=== PATIENT | female | born 1950 | race Caucasian/White ===

== ENCOUNTER 2018-09-11 15:40 | Observation (INO) | payer MEDICARE ==
[2018-09-11] MEDS ORDERED: Ondansetron PF 4 MG/2 ML Vial IVP PRN (17:14)
[2018-09-11] MEDS ORDERED: hydrALAZINE 20 MG/ML VIAL SLOW IVP PRN (17:14)
[2018-09-11] MEDS ORDERED: Bisacodyl 5 MG TAB PO PRN (17:14)
[2018-09-11] MEDS ORDERED: Nitroglycerin 0.4 MG TAB (25 Tab Bottle) SL PRN (17:14)
[2018-09-11] MEDS ORDERED: Diabetic Tussin 200 MG/10 ML UDCUP PO PRN (17:14)
[2018-09-11] MEDS ORDERED: Senokot S 8.6-50 MG TAB PO PRN ×2 (17:14)
[2018-09-11] MEDS ORDERED: Benzonatate 100 MG CAP PO PRN (17:14)
[2018-09-11] MEDS ORDERED: Calcium Carbonate 500 MG ChewTAB PO PRN (17:14)
[2018-09-11] MEDS ORDERED: cloNIDine 0.1 MG TAB PO PRN (17:14)
[2018-09-11 17:40] LABS: Troponin I Less than 0.010 ng/mL (< 0.028)
[2018-09-11] MEDS ORDERED: Nitroglycerin 2% Ointment 1 INCH/1 GM Packet ONE (17:40)
--- NOTE | 2018-09-11 18:27 | ULT ---
BILATERAL LOWER EXTREMITY VENOUS DOPPLER WITH SPECTRAL ANALYSIS AND COLOR FLOW EVALUATION: 09/11/18 HISTORY: Elevated D-dimer. FINDINGS: Caballero scale, color flow, doppler evaluation, spectral analysis, and color flow evaluation of the bilat eral lower extremity venous structures is performed with 2D imaging. The bilateral lower extremity co mmon femoral, superficial femoral, popliteal, posterior tibial, most proximal greater saphenous and p rofunda femoral veins are imaged. There is normal lumen compressibility, flow and augmentation of the visualized deep venous structures bilateral lower extremities. IMPRESSION: No evidence of a DVT involving the visualized deep venous structures bilateral lower extremities. POS: [facility]
--- NOTE | 2018-09-11 19:15 | RAD ---
PA AND LATERAL VIEWS CHEST: 09/11/18 HISTORY: Chest pain. FINDINGS: The heart size is normal. The lungs are expanded without focal areas of consolidation, pneumothoraces or pleural effusions are again seen in the spine. IMPRESSION: No evidence of acute cardiopulmonary process. POS: [facility]
--- NOTE | 2018-09-11 19:49 | NM ---
VQ SCAN: 09/11/18 HISTORY: Chest pain. elevated D-dimer. TECHNIQUE: A ventilation perfusion scan was performed using 14.2 millicuries Xenon 133 by inhalation for the alex tilation study followed by the intravenous administration of 6.3 millicuries technetium 99m-MAA for t he perfusion scan. FINDINGS: Correlation is made with the chest x-ray of the same date. Mild inhomogeneity is seen on the ventilation perfusion studies without mismatched pleural based wedg e shaped segmental/subsegmental perfusion defects. IMPRESSION: Low probability for pulmonary embolism. POS: [facility]
[2018-09-11 20:24] VITALS: BMI 41.6
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
[2018-09-11] MEDS: Atorvastatin Calcium 10 MG TAB PO SCH (21:31)
[2018-09-11] MEDS: Famotidine 20 MG TAB PO SCH (21:31)
[2018-09-11 21:46] LABS: Troponin I Less than 0.010 ng/mL (< 0.028)
[2018-09-12] MEDS: Nitroglycerin 2% Ointment 1 INCH/1 GM Packet TOP SCH ×2 (01:31→06:33)
[2018-09-12] MEDS: Acetaminophen 325 MG TAB PO PRN (03:39)
[2018-09-12] MEDS ORDERED: Naproxen 500 MG TAB PO SCH (05:30)
[2018-09-12] MEDS ORDERED: diphenhydrAMINE 25 MG CAP PO SCH (05:30)
[2018-09-12 05:59] LABS: Anion Gap 13 mmol/L (10-20); BUN (Urea Nitrogen) 20 mg/dL (9.8-20.1); Calc. Creatinine Clearance 83 mL/min (70-130); Calcium 8.5 mg/dL (7.8-10.44); Carbon Dioxide 20 mmol/L (23-31); Chloride 111 mmol/L (98-107); Estimated GFR-MDRD 46; Glucose 106 mg/dL (80-115); Potassium 4.4 mmol/L (3.5-5.1); Sodium 140 mmol/L (136-145)
[2018-09-12 06:19] LABS: #Basophils 0.1 thou/uL (0.0-0.2); #Eosinphils 0.2 thou/uL (0.0-0.7); #Lymphocytes 1.5 thou/uL (1.20-3.40); #Monocytes 0.7 thou/uL (0.11-0.59); #Neutrophils 3.3 thou/uL (1.40-6.50); %Basophils 1.1 % (0.0-1.0); %Eosinophils 3.5 % (0.0-10.0); %Lymphocytes 25.7 % (21.0-51.0); %Monocytes 11.9 % (0.0-10.0); %Neutrophils 57.8 % (42.0-75.0); Hemoglobin 13.2 g/dL (12.0-16.0); Mean Corpuscular HGB CONC 32.2 g/dL (32.0-36.0); Mean Corpuscular Hemoglobin 32.7 pg (27.0-31.0); Mean Platelet Volume 7.6 fL (7.4-10.4); Platelet Count 113 thou/uL (130-400); Platelet Morphology Comment Appears Decreased; RBC Distribution Width 12.8 % (11.5-14.5); Red Blood Cell (RBC) Count 4.03 mill/uL (4.20-5.40); White Blood Cell (WBC) Count 5.6 thou/uL (4.8-10.8)
[2018-09-12 08:45] LABS: #Basophils 0.1 thou/uL (0.0-0.2); #Eosinphils 0.2 thou/uL (0.0-0.7); #Lymphocytes 1.8 thou/uL (1.20-3.40); #Monocytes 0.8 thou/uL (0.11-0.59); #Neutrophils 3.5 thou/uL (1.40-6.50); %Basophils 0.9 % (0.0-1.0); %Eosinophils 3.3 % (0.0-10.0); %Lymphocytes 28.6 % (21.0-51.0); %Monocytes 12.3 % (0.0-10.0); Hemoglobin 13.5 g/dL (12.0-16.0); Mean Corpuscular HGB CONC 32.8 g/dL (32.0-36.0); Mean Corpuscular Hemoglobin 33.3 pg (27.0-31.0); Mean Platelet Volume 7.4 fL (7.4-10.4); Platelet Count 107 thou/uL (130-400); RBC Distribution Width 12.9 % (11.5-14.5); Red Blood Cell (RBC) Count 4.06 mill/uL (4.20-5.40); White Blood Cell (WBC) Count 6.4 thou/uL (4.8-10.8)
[2018-09-12 08:54] LABS: Anion Gap 9 mmol/L (10-20); BUN (Urea Nitrogen) 20 mg/dL (9.8-20.1); Calc. Creatinine Clearance 85 mL/min (70-130); Calcium 8.4 mg/dL (7.8-10.44); Carbon Dioxide 23 mmol/L (23-31); Chloride 112 mmol/L (98-107); Estimated GFR-MDRD 47; Glucose 94 mg/dL (80-115); Potassium 4.4 mmol/L (3.5-5.1); Sodium 140 mmol/L (136-145)
[2018-09-12] MEDS ORDERED: Aspirin 325 mg Enteric Coated Tablet PO SCH (09:00)
[2018-09-12] MEDS ORDERED: Hydrochlorothiazide 25 MG TAB PO SCH (09:00)
[2018-09-12] MEDS ORDERED: NIFEdipine XL 30 MG TAB PO SCH (09:00)
[2018-09-12] MEDS: Enoxaparin Sodium 40 MG/0.4 ML SYRINGE SC SCH (09:35)
[2018-09-12] MEDS: Aspirin 81 mg Enteric Coated Tablet PO SCH (09:35)
[2018-09-12] MEDS: Famotidine 20 MG TAB PO SCH ×2 (09:35→20:47)
[2018-09-12] MEDS: Escitalopram Oxalate 20 mg Tablet PO SCH (09:35)
[2018-09-12] MEDS ORDERED: Enoxaparin Sodium 80 MG/0.8 ML SYRINGE SC SCH (11:00)
[2018-09-12] MEDS ORDERED: Diltiazem 125 MG in Sodium Chloride 0.9% 100 ML IVPB SCH (11:00)
[2018-09-12] MEDS: Losartan 25 MG TAB PO SCH (12:03)
--- NOTE | 2018-09-12 13:49 | PDOC.PN ---
- Subjective Encounter Start Date: 09/12/18 Encounter Start Time: 13:47 Subjective: pt went into a-fib w RVR this morning and feels "pretty awful' -: no more chest pain - Objective Resuscitation Status - Order Detail: 09/11/18 19:29 Resuscitation Status Routine Resuscitation Status: FULL: Full Resuscitation Discussed with: discussed w pt MAR Reviewed: Yes Vital Signs & Weight: Vital Signs (12 hours) Temp Pulse Resp BP BP Pulse Ox 09/12/18 11:00 97.7 F 53 L 18 143/71 H 96 09/12/18 07:00 97.9 F 53 L 20 133/66 96 09/12/18 03:39 59 L 18 127/69 97 Weight Weight 258 lb 4.8 oz Result Diagrams: 09/12/18 08:25 09/12/18 08:25 Additional Labs: Laboratory Tests 09/11/18 09/11/18 09/11/18 12:43 17:06 20:58 Troponin I 0.014 Less than 0.010 Less than 0.010 Phys Exam - Physical Examination Constitutional: NAD uncomfortable HEENT: PERRLA, moist MMs, sclera anicteric, oral pharynx no lesions Neck: no nodes, no JVD, supple, full ROM Respiratory: no wheezing, no rales, no rhonchi Cardiovascular: no significant murmur, irregular Gastrointestinal: soft, non-tender, no distention, positive bowel sounds Musculoskeletal: no edema, pulses present Neurological: non-focal, normal sensation, moves all 4 limbs Dx/Plan (1) Hypertensive urgency Code(s): I16.0 - HYPERTENSIVE URGENCY Status: Acute Comment: Improved control (2) Chest pain Code(s): R07.9 - CHEST PAIN, UNSPECIFIED Status: Acute Comment: PE ruled out. (3) Atrial fibrillation with RVR Code(s): I48.91 - UNSPECIFIED ATRIAL FIBRILLATION Status: Acute (4) BRENNAN (acute kidney injury) Code(s): N17.9 - ACUTE KIDNEY FAILURE, UNSPECIFIED Status: Acute (5) Tobacco abuse Code(s): Z72.0 - TOBACCO USE Status: Chronic (6) Tobacco abuse counseling Code(s): Z71.6 - TOBACCO ABUSE COUNSELING Status: Chronic (7) HTN (hypertension) Code(s): I10 - ESSENTIAL (PRIMARY) HYPERTENSION Status: Chronic (8) AAA (abdominal aortic aneurysm) Code(s): I71.4 - ABDOMINAL AORTIC ANEURYSM, WITHOUT RUPTURE Status: Chronic Qualifiers: Presence of rupture: without rupture Qualified Code(s): I71.4 - Abdominal aortic aneurysm, without rupture - Plan DVT proph w/SCDs BP better. troponin negative .stress test today -: reverted back to NSR. will give cardiazem drip if re-occurs. pt high risk -: May need cath for further risk stratifications. -: Hold Lisinopril as Cr high. started on procardia. Cont HCTZ.monitor -: hold BB due to sinus bradycardia. * . Review of Systems - Review of Systems Constitutional: weakness, malaise. negative: fever, chills, sweats, other Respiratory: negative: Cough, Dry, Shortness of Breath, Hemoptysis, SOB with Excertion, Pleuritic Pain, Sputum, Wheezing Cardiovascular: negative: chest pain, palpitations, orthopnea, paroxysmal nocturnal dyspnea, edema, light headedness, other Gastrointestinal: negative: Nausea, Vomiting, Abdominal Pain, Diarrhea, Constipation, Melena, Hematochezia, Other Genitourinary: negative: Dysuria, Frequency, Incontinence, Hematuria, Retention , Other Musculoskeletal: negative: Neck Pain, Shoulder Pain, Arm Pain, Back Pain, Hand Pain, Leg Pain, Foot Pain, Other Neurological: negative: Weakness, Numbness, Incoordination, Change in Speech, Confusion, Seizures, Other - Medications/Allergies Allergies/Adverse Reactions: Allergies Allergy/AdvReac Type Severity Reaction Status Date / Time Iodinated Contrast- Oral and Allergy Verified 09/11/18 20:30 IV Dye Penicillins Allergy Verified 09/11/18 20:30 Medications: Current Medications Acetaminophen (Tylenol) 650 mg PO Q4H PRN PRN Reason: Headache/Fever/Mild Pain (1-3) Last Admin: 09/12/18 03:39 Dose: 650 mg Albuterol/Ipratropium (Duoneb) 3 ml NEB [id number] PRN PRN Reason: SOB &/or Wheezing Aspirin (Ecotrin) 81 mg PO DAILY COUNTS INCLUDE 234 BEDS AT THE [facility] Last Admin: 09/12/18 09:35 Dose: 81 mg Atorvastatin Calcium (Lipitor) 10 mg PO HS COUNTS INCLUDE 234 BEDS AT THE [facility] Last Admin: 09/11/18 21:31 Dose: Not Given Benzonatate (Tessalon) 100 mg PO Q6H PRN PRN Reason: Cough Bisacodyl (Dulcolax) 10 mg PO DAILYPRN PRN PRN Reason: Constipation Calcium Carbonate (Tums) 1,000 mg PO Q4H PRN PRN Reason: Heartburn or Indigestion Clonidine (Catapres) 0.1 mg PO Q4H PRN PRN Reason: SBP > 160____ Enoxaparin Sodium (Lovenox) 40 mg SC 0900 COUNTS INCLUDE 234 BEDS AT THE [facility] Last Admin: 09/12/18 09:35 Dose: 40 mg Escitalopram Oxalate (Lexapro) 20 mg PO DAILY COUNTS INCLUDE 234 BEDS AT THE [facility] Last Admin: 09/12/18 09:35 Dose: 20 mg Famotidine (Pepcid) 20 mg PO BID COUNTS INCLUDE 234 BEDS AT THE [facility] Last Admin: 09/12/18 09:35 Dose: 20 mg Guaifenesin (Robitussin Sf) 200 mg PO Q4H PRN PRN Reason: Cough Hydralazine HCl (Apresoline) 10 mg SLOW IVP Q4H PRN PRN Reason: SBP > 180 and HR < 70 Diltiazem HCl 125 mg/ Sodium (Chloride) 125 mls @ 5 mls/hr IVPB INF COUNTS INCLUDE 234 BEDS AT THE [facility] Losartan Potassium (Cozaar) 100 mg PO DAILY COUNTS INCLUDE 234 BEDS AT THE [facility] Last Admin: 09/12/18 12:03 Dose: 100 mg Nitroglycerin (Nitrostat) 0.4 mg SL Q5MIN PRN PRN Reason: Chest Pain Ondansetron HCl (Zofran) 4 mg IVP Q6H PRN PRN Reason: Nausea/Vomiting Senna/Docusate Sodium (Senokot S) 2 tab PO BID PRN PRN Reason: Constipation
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
[2018-09-13] MEDS: Atorvastatin Calcium 10 MG TAB PO SCH ×2 (04:45→20:12)
[2018-09-13] MEDS: Aspirin 81 mg Enteric Coated Tablet PO SCH (09:04)
[2018-09-13] MEDS: Escitalopram Oxalate 20 mg Tablet PO SCH (09:04)
[2018-09-13] MEDS: Enoxaparin Sodium 40 MG/0.4 ML SYRINGE SC SCH (09:04)
[2018-09-13] MEDS: Losartan 25 MG TAB PO SCH (09:04)
[2018-09-13] MEDS: Famotidine 20 MG TAB PO SCH ×2 (09:04→20:11)
[2018-09-13] MEDS ORDERED: Regadenoson 0.4 MG/5 ML SYRINGE ONE (10:13)
--- NOTE | 2018-09-13 11:32 | PDOC.CTH ---
Cardiology Progress Note - Subjective The pt seen and examined. No overnight events. No cardiac complaints. - Objective Vital Signs Temp Pulse Resp BP Pulse Ox 09/13/18 07:00 98.4 F 54 L 18 132/80 98 09/13/18 03:58 97.6 F 55 L 16 135/86 96 09/12/18 23:32 98 F 54 L 17 138/86 96 Weight 258 lb 4.8 oz 09/12/18 09/13/18 09/14/18 06:59 06:59 06:59 Intake Total 600 Output Total 400 Balance 200 - Physical Examination General/Neuro: alert & oriented x3 Neck: no JVD present Lungs: CTA Heart: RRR Abdomen: soft Extremities: other: (No edema) - Telemetry Telemetry Rhythm: SB 50s - Labs Result Diagrams: 09/12/18 08:25 09/12/18 08:25 Troponin/CKMB Troponin I Less than 0.010 ng/mL (< 0.028) 09/11/18 20:58 - Assessment/Plan 1. CP - stable; Stress test was done today and the result is pending at this time 2. HTN urgency - stable with Losartan 100mg qd; not on BBlocker for now 2/2 bradycardia 3. Afib with RVR - Remains in SR; not on Bblocker for now 2/2 bradycardia; on ASA 81mg qd for now since AFib episode was only 1 hour yesterday. Cont. to monitor 4. AAA without rupture with [address] 5. Tobacco abuse - smoking cessation education given to the pt MAR reviewed Pt. seen and eval. by me. I agree with the A/P by the [employer]. Second part of stress tomorrow. Chest clear. RRR. Review of Systems - Review of Systems Constitutional: reports: no symptoms reported EENTM: reports: no symptoms reported Respiratory: reports: no symptoms reported Cardiac (ROS): reports: no symptoms reported ABD/GI: reports: no symptoms reported : reports: no symptoms reported Musculoskeletal: reports: no symptoms reported Skin: reports: no symptoms reported
--- NOTE | 2018-09-13 14:18 | PDOC.PN ---
- Subjective Encounter Start Date: 09/13/18 Encounter Start Time: 14:18 Subjective: feels much better today .no more chest pain.no SOB -: BP still running high - Objective Resuscitation Status - Order Detail: 09/11/18 19:29 Resuscitation Status Routine Resuscitation Status: FULL: Full Resuscitation Discussed with: discussed w pt MAR Reviewed: Yes Vital Signs & Weight: Vital Signs (12 hours) Temp Pulse Resp BP BP Pulse Ox 09/13/18 13:17 184/88 H 09/13/18 12:35 184/88 H 09/13/18 11:00 98.1 F 55 L 20 190/104 H 97 09/13/18 07:00 98.4 F 54 L 18 132/80 98 09/13/18 03:58 97.6 F 55 L 16 135/86 96 Weight Weight 258 lb 4.8 oz I&O: 09/12/18 09/13/18 09/14/18 06:59 06:59 06:59 Intake Total 600 Output Total 400 Balance 200 Result Diagrams: 09/12/18 08:25 09/12/18 08:25 Phys Exam - Physical Examination Constitutional: NAD HEENT: PERRLA, moist MMs, sclera anicteric, TM's clear, oral pharynx no lesions , 2+ tonsils Neck: no nodes, no JVD, supple, full ROM Respiratory: no wheezing, no rales, no rhonchi, clear to auscultation bilateral Cardiovascular: RRR, no significant murmur Gastrointestinal: soft, non-tender, no distention, positive bowel sounds Musculoskeletal: no edema, pulses present Neurological: non-focal, normal sensation, moves all 4 limbs Psychiatric: normal affect, A&O x 3 Skin: no rash Dx/Plan (1) Hypertensive urgency Code(s): I16.0 - HYPERTENSIVE URGENCY Status: Acute Comment: Improved control (2) Chest pain Code(s): R07.9 - CHEST PAIN, UNSPECIFIED Status: Acute Comment: PE ruled out.Stress test results pending.Test will finish tomorrow (3) Atrial fibrillation with RVR Code(s): I48.91 - UNSPECIFIED ATRIAL FIBRILLATION Status: Acute Comment: resolved spontaneously (4) BRENNAN (acute kidney injury) Code(s): N17.9 - ACUTE KIDNEY FAILURE, UNSPECIFIED Status: Acute Comment: suspect CKD. HCTZ stopped. improving. (5) Tobacco abuse Code(s): Z72.0 - TOBACCO USE Status: Chronic (6) Tobacco abuse counseling Code(s): Z71.6 - TOBACCO ABUSE COUNSELING Status: Chronic (7) HTN (hypertension) Code(s): I10 - ESSENTIAL (PRIMARY) HYPERTENSION Status: Chronic (8) AAA (abdominal aortic aneurysm) Code(s): I71.4 - ABDOMINAL AORTIC ANEURYSM, WITHOUT RUPTURE Status: Chronic Qualifiers: Presence of rupture: without rupture Qualified Code(s): I71.4 - Abdominal aortic aneurysm, without rupture Comment: stable - Plan DVT proph w/SCDs BP stil high.Bystolic stopped due tpo sinus bradycardia -: Add procardia and titrate.cont losartan -: DC home in am if stress test negative and OK w cardiology -: tobacco cessation advised for pt and . -: HD stable.no recurrance of a-fib * . Review of Systems - Medications/Allergies Allergies/Adverse Reactions: Allergies Allergy/AdvReac Type Severity Reaction Status Date / Time Iodinated Contrast- Oral and Allergy Verified 09/11/18 20:30 IV Dye Penicillins Allergy Verified 09/11/18 20:30 Medications: Current Medications Acetaminophen (Tylenol) 650 mg PO Q4H PRN PRN Reason: Headache/Fever/Mild Pain (1-3) Last Admin: 09/12/18 03:39 Dose: 650 mg Albuterol/Ipratropium (Duoneb) 3 ml NEB [id number] PRN PRN Reason: SOB &/or Wheezing Aspirin (Ecotrin) 81 mg PO DAILY [facility] Last Admin: 09/13/18 09:04 Dose: 81 mg Atorvastatin Calcium (Lipitor) 10 mg PO HS [facility] Last Admin: 09/13/18 04:45 Dose: Not Given Benzonatate (Tessalon) 100 mg PO Q6H PRN PRN Reason: Cough Bisacodyl (Dulcolax) 10 mg PO DAILYPRN PRN PRN Reason: Constipation Calcium Carbonate (Tums) 1,000 mg PO Q4H PRN PRN Reason: Heartburn or Indigestion Clonidine (Catapres) 0.1 mg PO Q4H PRN PRN Reason: SBP > 160____ Last Admin: 09/13/18 13:17 Dose: 0.1 mg Enoxaparin Sodium (Lovenox) 40 mg SC 0900 [facility] Last Admin: 09/13/18 09:04 Dose: 40 mg Escitalopram Oxalate (Lexapro) 20 mg PO DAILY [facility] Last Admin: 09/13/18 09:04 Dose: 20 mg Famotidine (Pepcid) 20 mg PO BID [facility] Last Admin: 09/13/18 09:04 Dose: 20 mg Guaifenesin (Robitussin Sf) 200 mg PO Q4H PRN PRN Reason: Cough Hydralazine HCl (Apresoline) 10 mg SLOW IVP Q4H PRN PRN Reason: SBP > 180 and HR < 70 Losartan Potassium (Cozaar) 100 mg PO DAILY [facility] Last Admin: 09/13/18 09:04 Dose: 100 mg Nitroglycerin (Nitrostat) 0.4 mg SL Q5MIN PRN PRN Reason: Chest Pain Ondansetron HCl (Zofran) 4 mg IVP Q6H PRN PRN Reason: Nausea/Vomiting Senna/Docusate Sodium (Senokot S) 2 tab PO BID PRN PRN Reason: Constipation
[2018-09-13] MEDS ORDERED: NIFEdipine XL 60 MG TAB PO SCH (14:30)
[2018-09-13] MEDS ORDERED: ALPRAZolam 0.25 MG TAB PO PRN (18:44)
[2018-09-14] MEDS: Acetaminophen 325 MG TAB PO PRN (08:24)
--- NOTE | 2018-09-14 08:36 | STRESS ---
Acquisition Time: 2018-09-13 09:37:54 Total Exercise Time: 00:01:00 Test Indications: CHEST PAIN Medications: Protocol: LEXISCAN Max HR: 071 BPM 47% of Pred: 150 BPM Max BP: 140/070 mmHG Max Work Load: 1.0 METS RESTING ECG: SINUS LENORA AT 47 BPM WITH 1 DEGREE AV BLOCK SYMPTOMS: CHEST PAIN, ROONEY, NAUSEA, HEADACHE APPROPRIATE BP RESPONSE FOR LEXISCAN ECTOPY: NONE ECG STRESS: NO SIGNIFICANT CHANGES INTERPRETATION: AWAIT NUCLEAR IMAGES FOR DEFINITIVE DIAGNOSIS Confirmed by REBEKAH AHN ([id number]) on 09/14/2018 8:36:01 AM Referred By: Confirmed By:REBEKAH AHN
[2018-09-14] MEDS ORDERED: NIFEdipine XL 30 MG TAB PO SCH (09:00)
--- NOTE | 2018-09-14 09:58 | CON ---
DATE OF CONSULTATION: ADDENDUM: Please refer to the notes already dictated by the nurse practitioner. HISTORY OF PRESENT ILLNESS: Ms. Villalobos is a very pleasant 68-year-old female, who moved here about 4 to 5 years ago from [place]. She had some previous stress test there that was unremarkable. She also has a history of nonalcoholic cirrhosis. She is busy in care of grandkids and yesterday, she knows she developed some sudden onset of chest discomfort, then radiated to the back and she became short of breath with it, then she presented to the emergency room. In the interim, she has then developed atrial fibrillation. With atrial fibrillation, she did develop more chest discomfort. Her cardiac enzymes are negative. Her EKG with the atrial fibrillation did not show any acute ST-segment changes. Before that she was having some episodes of bradycardia, but again no significant EKG changes to indicate ischemia. She does have a history of abdominal aortic aneurysm and has multiple risk factors for coronary artery disease, which include tobacco abuse. She stops smoking for about 13 years. This started back several years ago. She also has hypertension, hypercholesterolemia, and family history of heart disease. Her father had stents placed, but he also smoked. She denies any diabetes and blood sugar does not appear to be significantly elevated. PAST MEDICAL HISTORY: Please refer to the notes already dictated by the nurse practitioner. SOCIAL HISTORY: Please refer to the notes already dictated by the nurse practitioner. FAMILY HISTORY: Please refer to the notes already dictated by the nurse practitioner. REVIEW OF SYSTEMS: Please refer to the notes already dictated by the nurse practitioner. MEDICATIONS: Please refer to the notes already dictated by the nurse practitioner. ALLERGIES: PLEASE REFER TO THE NOTES ALREADY DICTATED BY THE NURSE PRACTITIONER. PHYSICAL EXAMINATION: GENERAL: Reveals an elderly female, in no acute distress. VITAL SIGNS: Blood pressure 143/71, heart rates in the 50s. She has converted back to sinus rhythm. Respiratory rate is 18. She is afebrile. HEENT: Shows the head to be normocephalic and atraumatic. Carotid pulses are present. I did not hear any significant bruits. CHEST: Clear to auscultation without rales, rhonchi, or wheezing. CARDIOVASCULAR: Reveals a regular rate and rhythm with normal S1 and S2. I do not hear any significant S3 or S4. She has a very soft systolic murmur at the apex. ABDOMEN: Shows obesity. Positive bowel sounds are present. EXTREMITIES: Show no clubbing or cyanosis. Pedal pulses are present. NEUROLOGIC: She appears to be intact. SKIN: Warm and dry. DIAGNOSTIC DATA: She did have an echocardiogram performed, which shows ejection fraction of 60% to 65% with trace mitral valve regurgitation and trace tricuspid valve regurgitation. LABORATORY DATA: Laboratory data as noted shows no evidence of elevation of cardiac enzymes. Her creatinine is 1.14, chloride was 112, sodium was 140, potassium was 4.4. Hemoglobin 13.5, WBC of 6.4, and platelet count 107,000. IMPRESSION: 1. Chest pain in an elderly female with multiple risk factors for coronary artery disease and also atrial fibrillation. We will schedule her for stress testing to rule out evidence for underlying coronary artery disease. This is the possible etiology of the chest pain as well as the possible etiology of the atrial fibrillation. 2. History of intermittent atrial fibrillation. We will need to adjust her medications in order to hopefully decrease the risk of recurrence of atrial fibrillation. She is on diltiazem at this time. We can continue this and can switch over to p.o. diltiazem. 3. Hypertension. This is under good control at this time. 4. Hypercholesterolemia. We will review her medications and start her on medications for her cholesterol. She is not taking any cholesterol medications at this time. Her medications prior to admission include Bystolic, losartan, hydrochlorothiazide, and escitalopram. Since being in the hospital, she has been placed on nitroglycerin, diltiazem, aspirin, Lipitor, as well as Lovenox and other p.r.n. medications. We will schedule her for stress testing tomorrow. If the stress test is abnormal, she will need to undergo further evaluation by cardiac catheterization. If not, she can be followed then as an outpatient. Job ID: [id number]
[2018-09-14] MEDS: Escitalopram Oxalate 20 mg Tablet PO SCH (10:13)
[2018-09-14] MEDS: Famotidine 20 MG TAB PO SCH (10:13)
[2018-09-14] MEDS: Aspirin 81 mg Enteric Coated Tablet PO SCH (10:13)
[2018-09-14] MEDS: Losartan 25 MG TAB PO SCH (10:14)
[2018-09-14] MEDS: Enoxaparin Sodium 40 MG/0.4 ML SYRINGE SC SCH (10:14)
--- NOTE | 2018-09-14 11:07 | PDOC.CTH ---
Cardiology Progress Note - Subjective The pt seen and examined. No overnight events. She complains of dizziness and no energy this AM. - Objective Vital Signs Temp Pulse Resp BP BP Pulse Ox 09/14/18 10:13 52 L 09/14/18 08:05 50 L 22 H 136/77 98 09/14/18 07:00 97.6 F 52 L 16 117/75 96 09/14/18 03:25 53 L 18 109/61 97 Weight 258 lb 4.8 oz 09/13/18 09/14/18 09/15/18 06:59 06:59 06:59 Intake Total 600 800 Output Total 400 500 Balance 200 300 - Physical Examination General/Neuro: alert & oriented x3 Neck: no JVD present Lungs: CTA Heart: RRR Abdomen: soft Extremities: other: (No edema) - Telemetry Telemetry Rhythm: SB-SR 48-100s - Labs Result Diagrams: 09/12/18 08:25 09/12/18 08:25 Troponin/CKMB Troponin I Less than 0.010 ng/mL (< 0.028) 09/11/18 20:58 - Assessment/Plan 1. CP - stable; Stress test was done today and the result is pending at this time 2. HTN urgency - stable with Losartan 100mg qd and Nifedipine 30mg qd 3. Afib with RVR - Remains in SR; not on Bblocker for now 2/2 bradycardia; on ASA 81mg qd for now since AFib episode was only 1 hour yesterday. Cont. to monitor 4. AAA without rupture with [address] 5. Tobacco abuse - smoking cessation education given to the pt MAR reviewed Review of Systems - Review of Systems Constitutional: reports: see HPI EENTM: reports: no symptoms reported Respiratory: reports: no symptoms reported Cardiac (ROS): reports: no symptoms reported ABD/GI: reports: no symptoms reported : reports: no symptoms reported Musculoskeletal: reports: no symptoms reported Skin: reports: no symptoms reported
[2018-09-14 11:51] VITALS: TEMP 97.7
--- NOTE | 2018-09-14 12:17 | DIS ---
DATE OF ADMISSION: 09/11/2018 DATE OF DISCHARGE: 09/14/2018 DISPOSITION: Discharged home. FINAL DIAGNOSES: Hypertensive urgency; chest pain, noncardiac; paroxysmal atrial fibrillation; one episode hypertension; abdominal aortic aneurysm; tobacco abuse. DISCHARGE MEDICATIONS: 1. Hydrochlorothiazide 25 mg a day. 2. Nifedipine 30 mg a day. 3. Losartan 100 mg a day. 4. Escitalopram 20 mg a day. DIET: Heart healthy. PENDING AT TIME OF DISCHARGE: Nothing. CODE STATUS: Full. HOSPITAL COURSE: The patient was admitted to [facility] with uncontrolled hypertension, chest pain, shortness of breath. She has sinus bradycardia, 59. D-dimer was elevated. CT was done, negative for pulmonary embolism. She does have a 4 cm infrarenal abdominal aneurysm. Initial laboratory revealed chronic kidney disease stage 3. Cardiac enzymes were normal. TSH was normal. CBC was unremarkable. She was seen by Cardiology in consultation, Dr. Quintin Barnhart. Her laboratory did not give any evidence. She had a nuclear medicine stress test, which revealed homogeneous uptake. A normal LVEF. Negative flow motion changes. Situation has been discussed with the patient. Her primary care provider at [facility] in [place] has closed, which she is planning to go to [place]. We have discussed the physicians I am aware of in [place]. She will pick a physician and see them in 7 days. No procedures were done. She will need followup in the future on the abdominal aortic aneurysm. She will need close monitoring of her blood pressure. Job ID: [id number]
--- NOTE | 2018-09-14 12:24 | NM ---
CARDIAC SPECT: CLINICAL HISTORY: 68-year-old female with chest pain, hypertension, asthma, and atrial fibrillation. TECHNIQUE: A myocardial perfusion scan was performed using the single isotope two day protocol with 33 mCi techn etium-99m sestamibi injected intravenously for both stress and rest images. Pharmacologic stress with Lexiscan was monitored and interpreted by Dr. Barnhart. FINDINGS: Homogeneous tracer distribution is seen in the myocardial segments on stress and rest images without fixed or reversible defects. GATED SPECT LVEF: 72%. WALL MOTION EXAM: Normal. IMPRESSION: Normal myocardial perfusion scan. POS: [facility]
[2018-09-14 12:44] VITALS: BP 130/73
== END 2018-09-14 12:59 | disposition home or self-care (01) ==
LOC: ERS 15:40 → 2SW 19:13
PROVIDERS: ADMIT Internal Medicine; ATTEND Internal Medicine
DX: I16.0 Hypertensive urgency (principal); R07.89 Other chest pain; I48.0 Paroxysmal atrial fibrillation; I71.4 Abdominal aortic aneurysm, without rupture; I34.1 Nonrheumatic mitral (valve) prolapse; E78.00 Pure hypercholesterolemia, unspecified; K74.60 Unspecified cirrhosis of liver; K21.9 Gastro-esophageal reflux disease without esophagitis; J45.909 Unspecified asthma, uncomplicated; L40.9 Psoriasis, unspecified; F17.210 Nicotine dependence, cigarettes, uncomplicated; F32.9 Major depressive disorder, single episode, unspecified; N17.9 Acute kidney failure, unspecified; D69.6 Thrombocytopenia, unspecified; Z90.49 Acquired absence of other specified parts of digestive tract; Z90.710 Acquired absence of both cervix and uterus; Z90.89 Acquired absence of other organs; Z98.51 Tubal ligation status; Z88.0 Allergy status to penicillin; Z91.041 Radiographic dye allergy status; Z79.82 Long term (current) use of aspirin; Z79.899 Other long term (current) drug therapy
CPT/HCPCS: 71046; 78452; 78582; 80048 ×2; 84443; 84484; 85025 ×2; 93005; 93017; 93306; 93970; 96372 ×3; 97139 ×2; 99285; A9500; A9540; A9558; G0378 ×3; 36415; 93010; J1650; J2785; J7050; Q0163

== ENCOUNTER 2018-12-11 01:39 | Inpatient (IN) | payer MEDICARE ==
[2018-12-11] MEDS ORDERED: Fentanyl 100 MCG/2 ML VIAL ONE ×2 (01:55→13:50)
[2018-12-11] MEDS ORDERED: diphenhydrAMINE 50 MG/ML VIAL ONE (02:17)
[2018-12-11] MEDS ORDERED: methylPREDNISolone Sod Succ/PF 125 MG/2 ML VIAL ONE (02:17)
[2018-12-11] MEDS ORDERED: Famotidine/PF 20 mg/2ml Vial ONE (02:17)
[2018-12-11 02:30] LABS: #Basophils 0.1 thou/uL (0.0-0.2); #Eosinphils 0.2 thou/uL (0.0-0.7); #Lymphocytes 2.7 thou/uL (1.20-3.40); #Neutrophils 3.7 thou/uL (1.40-6.50); %Eosinophils 2.7 % (0.0-10.0); %Lymphocytes 35.1 % (21.0-51.0); %Neutrophils 48.2 % (42.0-75.0); Hemoglobin 14.2 g/dL (12.0-16.0); Mean Corpuscular HGB CONC 34.2 g/dL (32.0-36.0); Mean Corpuscular Hemoglobin 33.8 pg (27.0-31.0); Mean Platelet Volume 7.1 fL (7.4-10.4); Platelet Count 148 thou/uL (130-400); RBC Distribution Width 12.5 % (11.5-14.5); Red Blood Cell (RBC) Count 4.21 mill/uL (4.20-5.40); White Blood Cell (WBC) Count 7.7 thou/uL (4.8-10.8)
[2018-12-11 02:50] LABS: ALT (SGPT) 26 U/L (8-55); AST (SGOT) 31 U/L (5-34); Albumin 3.5 g/dL (3.4-4.8); Alkaline Phosphatase 104 U/L (40-150); Anion Gap 13 mmol/L (10-20); BUN (Urea Nitrogen) 15 mg/dL (9.8-20.1); Bilirubin, Total 0.6 mg/dL (0.2-1.2); Calc. Creatinine Clearance 0 mL/min (70-130); Calcium 8.7 mg/dL (7.8-10.44); Carbon Dioxide 20 mmol/L (23-31); Chloride 112 mmol/L (98-107); Estimated GFR-MDRD 44; Globulin 2.7 g/dL (2.4-3.5); Glucose 126 mg/dL (80-115); Magnesium 1.8 mg/dL (1.6-2.6); Potassium 3.4 mmol/L (3.5-5.1); Protein, Total 6.2 g/dL (6.0-8.3); Sodium 142 mmol/L (136-145)
[2018-12-11 03:12] LABS: CKMB 5.1 ng/mL (0-6.6)
[2018-12-11] MEDS ORDERED: Enoxaparin Sodium 100 MG/ML SYRINGE ONE (04:32)
[2018-12-11] MEDS ORDERED: Bisacodyl 5 MG TAB PO PRN (05:15)
[2018-12-11] MEDS ORDERED: Acetaminophen 325 MG TAB PO PRN (05:15)
[2018-12-11] MEDS ORDERED: Senokot S 8.6-50 MG TAB PO PRN (05:15)
[2018-12-11 06:20] LABS: Troponin I 0.491 ng/mL (< 0.028)
[2018-12-11 06:29] VITALS: BMI 40.1
--- NOTE | 2018-12-11 07:25 | RAD ---
CHEST 1 VIEW: INDICATION: Chest pain. COMPARISON: Prior exam of 09/11/2018. FINDINGS: The lungs are clear. Heart size is normal. Pacer pads overlie the chest wall. No acute osseous abn ormality is evident. IMPRESSION: No acute cardiopulmonary abnormality. POS: BH
[2018-12-11] MEDS: Metoprolol Tartrate 25 MG TAB PO SCH ×2 (08:52→20:40)
[2018-12-11] MEDS: Enoxaparin Sodium 100 MG/ML SYRINGE SC SCH ×2 (08:52→12:12)
[2018-12-11] MEDS: Aspirin 81 mg Enteric Coated Tablet PO SCH ×2 (08:52→12:11)
[2018-12-11] MEDS: Escitalopram Oxalate 20 mg Tablet PO SCH (08:52)
--- NOTE | 2018-12-11 09:06 | CT ---
PRELIMINARY REPORT/[facility]/EMERGENCY AFTER HOURS PROCEDURE: EXAM: CT Angiography Chest With Contrast EXAM DATE/TIME: 12/11/2018 3:02 AM CLINICAL HISTORY: 68 years old, female; Other: Cp; Prior surgery; Surgery type: Surgical history of appendectomy, surgi eric history of hysterectomy, surgical history of tubal ligation. ; Patient HX: Er 8. 68 y/o F present s to ED via EMS transport C/O palpitation. PT describes sudden onset while she was lying in bed. She notes some associated chest pain. TECHNIQUE: Imaging protocol: Axial computed tomographic angiography images of the chest with intravenous contras t using CT angiography protocol. Coronal and sagittal reformatted images were created and reviewed. 3D rendering: MIP reconstructed images were created and reviewed. COMPARISON: No relevant prior studies available. FINDINGS: Aorta: No aortic aneurysm. No aortic dissection. Lungs: No consolidations or edema. Pleural space: No pneumothorax or pleural effusion. Heart: The heart is within normal size limits. No abdnormal pericardial effusion. Lymph nodes: No lymphadenopathy. Bones/joints: No suspicious bone lesions or fracture. Soft tissues: No acute finding. IMPRESSION: No thoracic aortic dissection or aneurysm. EXAM: CT Angiography Abdomen With Contrast EXAM DATE/TIME: 12/11/2018 3:02 AM CLINICAL HISTORY: 68 years old, female; Other: Cp; Prior surgery; Surgery type: Surgical history of appendectomy, surgi eric history of hysterectomy, surgical history of tubal ligation. ; Patient HX: Er 8. 68 y/o F present s to ED via EMS transport C/O palpitation. PT describes sudden onset while she was lying in bed. She notes some associated chest pain. TECHNIQUE: Imaging protocol: Axial computed tomographic angiography images of the abdomen with intravenous contr ast material. Coronal and sagittal reformatted images were created and reviewed. 3D rendering: MIP reconstructed images were created and reviewed. COMPARISON: No relevant prior studies available. FINDINGS: Lungs: Unremarkable. No consolidation. VASCULATURE: Aorta: There is an infrarenal abdominal aortic aneurysm measuring up to 4.5 cm. Celiac trunk and mesenteric arteries: The celiac, superior mesenteric and inferior mesenteric arterie s are patent. Renal arteries: The bilateral renal arteries are patent. ABDOMEN: Liver: Cirrhotic liver morphology. Gallbladder and bile ducts: Hydropic gallbladder. Pancreas: Normal. No ductal dilation. Spleen: Normal. No splenomegaly. Adrenals: Normal. No mass. Kidneys and ureters: Normal. No hydronephrosis. Stomach and bowel: Unremarkable. No obstruction. No mucosal thickening. Intraperitoneal space: Unremarkable. No free air. No significant fluid collection. Bones/joints: Lower lumbar spine fusion. Soft tissues: Unremarkable. Lymph nodes: Unremarkable. No enlarged lymph nodes. IMPRESSION: 1. Infrarenal abdominal aortic aneurysm measuring up to 4.5 cm. No evidence of ruptuer or dissection. 2. Gallbladder hydrops. 3. Cirrhotic liver morphology. Thank you for allowing us to participate in the care of your patient. Dictated and Authenticated by: Bhumika Vela MD 12/11/2018 3:35 AM Central Time ([place] & [place]) FINAL REPORT EMERGENCY AFTER HOURS CT AORTIC DISSECTION PROTOCOL: IMPRESSION: I agree with the preliminary report provided by [facility]. There is a bilobed infrarenal abdominal aortic aneurysm measuring up to 4.3 cm. There is cirrhosis with moderate distention of the gallbladder. POS: BH
[2018-12-11 09:10] LABS: Troponin I 0.797 ng/mL (< 0.028)
[2018-12-11] MEDS ORDERED: Iopamidol 370 76% 100 ML VIAL ONE (09:54)
[2018-12-11] MEDS ORDERED: Communication Order-Pharmacy FS SCH (10:15)
[2018-12-11] MEDS ORDERED: diphenhydrAMINE 50 MG/ML VIAL IVP SCH (10:30)
[2018-12-11] MEDS ORDERED: ISOVUE-370 76%-LOCM 1 ML ONE (10:56)
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
[2018-12-11] MEDS ORDERED: Hydrocortisone 10 mg Tablet PO SCH (12:00)
[2018-12-11] MEDS ORDERED: Famotidine 20 MG TAB PO SCH (12:00)
[2018-12-11] MEDS ORDERED: diphenhydrAMINE 50 MG CAP PO SCH (12:00)
[2018-12-11] MEDS ORDERED: Verapamil 5 MG/2 ML VIAL ONE (13:37)
[2018-12-11] MEDS ORDERED: Heparin 10,000 UNITS/1 ML VIAL ONE (13:37)
[2018-12-11] MEDS ORDERED: Nitroglycerin 100MG/250ML BOT 250 ML ONE (13:37)
[2018-12-11] MEDS ORDERED: Midazolam HCl 2 mg/2 ml Vial ONE (13:47)
[2018-12-11] MEDS ORDERED: Nitroglycerin 0.4 MG TAB (25 Tab Bottle) SL PRN (15:28)
[2018-12-11] MEDS ORDERED: Acetaminophen/Codeine 30-300mg Tablet PO PRN ×2 (15:28)
[2018-12-11] MEDS ORDERED: Sodium Chloride 0.9% 200 ML IV PRN (15:28)
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
[2018-12-12 03:30] LABS: Bilirubin Negative (Negative); Blood, Urine Negative (Negative); Clarity CLEAR (Clear); Glucose, Urine (Dipstick) Negative (Negative); Leukocyte Negative (Negative); Nitrite Negative (Negative); Protein, Urine (Dipstick) Negative (Neg-Trace); Specific Gravity, Urine 1.024 (1.002-1.036); Urobilinogen 0.2 mg/dL (0.2-1.0)
[2018-12-12 03:32] LABS: Bacteria/HPF None Seen HPF (None Seen); Hyaline Casts/LPF 0-3 HYALINE CAST LPF (0-3 Hyaline); Pathc Cast-AUWi Flag 0.13 (0-2.49); RBC/HPF 0-3 HPF (0-3); Squamous Epithelial 0-3 HPF (0-3); WBC/HPF None Seen HPF (0-3)
[2018-12-12 03:33] LABS: Urine Culture Reflex No No
[2018-12-12 06:13] LABS: #Neutrophils 8.1 thou/uL (1.40-6.50); %Basophils 0.2 % (0.0-1.0); %Eosinophils 0.3 % (0.0-10.0); %Lymphocytes 18.2 % (21.0-51.0); %Monocytes 8.7 % (0.0-10.0); %Neutrophils 72.6 % (42.0-75.0); Hemoglobin 12.5 g/dL (12.0-16.0); Mean Corpuscular HGB CONC 32.7 g/dL (32.0-36.0); Mean Corpuscular Hemoglobin 32.5 pg (27.0-31.0); Mean Corpuscular Volume 99.5 fL (78.0-98.0); Mean Platelet Volume 7.7 fL (7.4-10.4); Platelet Count 114 thou/uL (130-400); RBC Distribution Width 12.6 % (11.5-14.5); Red Blood Cell (RBC) Count 3.83 mill/uL (4.20-5.40); White Blood Cell (WBC) Count 11.1 thou/uL (4.8-10.8)
[2018-12-12 06:31] LABS: Anion Gap 12 mmol/L (10-20); BUN (Urea Nitrogen) 17 mg/dL (9.8-20.1); Calc. Creatinine Clearance 69 mL/min (70-130); Calcium 8.6 mg/dL (7.8-10.44); Carbon Dioxide 20 mmol/L (23-31); Chloride 112 mmol/L (98-107); Estimated GFR-MDRD 37; Glucose 109 mg/dL (80-115); Sodium 140 mmol/L (136-145)
[2018-12-12] MEDS: Escitalopram Oxalate 20 mg Tablet PO SCH (09:32)
[2018-12-12] MEDS: Aspirin 81 mg Enteric Coated Tablet PO SCH (09:37)
[2018-12-12] MEDS: Metoprolol Tartrate 25 MG TAB PO SCH ×2 (09:38→20:36)
--- NOTE | 2018-12-12 11:34 | EKG ---
Test Reason : Blood Pressure : / mmHG Vent. Rate : 140 BPM Atrial Rate : 153 BPM P-R Int : 000 ms QRS Dur : 088 ms QT Int : 338 ms P-R-T Axes : 000 010 119 degrees QTc Int : 516 ms Atrial fibrillation with rapid ventricular response Abnormal ECG Confirmed by DR. Roby BALLESTEROS ([id number]) on 12/12/2018 11:34:16 AM Referred By: Confirmed By:DR. Roby BALLESTEROS
--- NOTE | 2018-12-12 11:35 | EKG ---
Test Reason : Blood Pressure : / mmHG Vent. Rate : 073 BPM Atrial Rate : 073 BPM P-R Int : 154 ms QRS Dur : 072 ms QT Int : 418 ms P-R-T Axes : 012 006 076 degrees QTc Int : 460 ms Normal sinus rhythm Cannot rule out Anterior infarct , age undetermined Abnormal ECG Confirmed by DR. Roby BALLESTEROS ([id number]) on 12/12/2018 11:34:30 AM Referred By: Confirmed By:DR. Roby BALLESTEROS
--- NOTE | 2018-12-12 11:43 | PDOC.PN ---
- Subjective Encounter Start Date: 12/12/18 Encounter Start Time: 11:42 Patient seen and examined, states she feels much better today than yesterday, no family at bedside, all questions answered. - Objective Resuscitation Status - Order Detail: 12/11/18 05:15 Resuscitation Status Routine Resuscitation Status: FULL: Full Resuscitation Vital Signs & Weight: Vital Signs (12 hours) Temp Pulse Resp BP Pulse Ox 12/12/18 07:55 97.9 F 57 L 18 110/66 95 12/12/18 02:55 99 F 65 17 115/65 95 Weight Weight 263 lb 5.348 oz I&O: 12/11/18 12/12/18 12/13/18 06:59 06:59 06:59 Intake Total 400 Balance 400 Result Diagrams: 12/12/18 05:41 12/12/18 05:41 Phys Exam - Physical Examination Constitutional: NAD HEENT: PERRLA, moist MMs, sclera anicteric Neck: no nodes, no JVD, supple Respiratory: no wheezing, no rales, no rhonchi Cardiovascular: RRR, no significant murmur Gastrointestinal: soft, non-tender, no distention Musculoskeletal: no edema, pulses present Dx/Plan (1) Obese Code(s): E66.9 - OBESITY, UNSPECIFIED Status: Acute (2) Atrial fibrillation with RVR Code(s): I48.91 - UNSPECIFIED ATRIAL FIBRILLATION Status: Acute Comment: resolved spontaneously (3) Chest pain Code(s): R07.9 - CHEST PAIN, UNSPECIFIED Status: Acute Comment: PE ruled out.Stress test results pending.Test will finish tomorrow (4) Hypertensive urgency Code(s): I16.0 - HYPERTENSIVE URGENCY Status: Acute Comment: Improved control (5) HTN (hypertension) Code(s): I10 - ESSENTIAL (PRIMARY) HYPERTENSION Status: Chronic (6) Tobacco abuse Code(s): Z72.0 - TOBACCO USE Status: Chronic - Plan * Cont current management, hold BB if SBP < 120mmHg or if HR < 60 * patient states that she's a heavy bleeder and wants to know if she can take aspirin every other day for now, her father apparently also bleeds heavily with antiplatelets, her mother however has DVTs and is on anticoagulation, will defer antiplatelet/anticoagulation management to cardiology * ALL risks and benefits of not doing anticoagulation while having afib as a background rhythm were discussed, patient understood the risks and stated she'd like to talk to cardiology and then decide on what type of anticoagulation or antiplatelets she'd like. * Patient was advised that anticoagulation would be the best option, but states she'd like to talk to cardiology first * no other changes in plan of care for now * DC plans in 24-48hrs * case and plan d/w patient at length, she understood and agreed with this plan.
--- NOTE | 2018-12-12 19:09 | PDOC.CTH ---
Cardiology Progress Note - Subjective No new issues. Doing well. No chest pain. - Objective Vital Signs Temp Pulse Resp BP BP Pulse Ox 12/12/18 15:28 97.9 F 60 18 122/56 L 98 12/12/18 15:26 57 L 18 137/73 12/12/18 11:30 97.8 F 57 L 18 137/73 96 12/12/18 07:55 97.9 F 57 L 18 110/66 95 Weight 263 lb 5.348 oz 12/11/18 12/12/18 12/13/18 06:59 06:59 06:59 Intake Total 400 720 Balance 400 720 - Physical Examination General/Neuro: alert & oriented x3, NAD Neck: no JVD present Lungs: unlabored respirations Heart: RRR Abdomen: NT/ND Extremities: + edema B (trace) - Telemetry Telemetry Rhythm: NSR - Labs Result Diagrams: 12/12/18 05:41 12/12/18 05:41 Troponin/CKMB CK-MB (CK-2) 5.1 ng/mL (0-6.6) 12/11/18 02:19 Troponin I 0.797 ng/mL (< 0.028) H* 12/11/18 08:30 - Assessment/Plan 1. Afib, back in sinus 2. Type II CO, demand ischemia 3. Normal coronaries 4. Abdominal aortic aneurysm. 5. MVP 6. Chronic pain 7. Non alcoholic liver cirrhosis. PLAN: - AAA work up as outpatient. - Continue BB only for afib. - Not a good candidate for anticoagulation given her Hx of cirrhosis. - Aspirin alone for stroke prophylaxis. - No new recs.
[2018-12-13 05:14] LABS: #Eosinphils 0.1 thou/uL (0.0-0.7); #Lymphocytes 2.2 thou/uL (1.20-3.40); #Monocytes 0.7 thou/uL (0.11-0.59); #Neutrophils 3.3 thou/uL (1.40-6.50); %Basophils 0.8 % (0.0-1.0); %Eosinophils 1.6 % (0.0-10.0); %Lymphocytes 34.5 % (21.0-51.0); %Monocytes 10.4 % (0.0-10.0); %Neutrophils 52.7 % (42.0-75.0); Hemoglobin 12.8 g/dL (12.0-16.0); Mean Corpuscular HGB CONC 32.9 g/dL (32.0-36.0); Mean Corpuscular Hemoglobin 33.2 pg (27.0-31.0); Mean Platelet Volume 7.5 fL (7.4-10.4); Platelet Count 111 thou/uL (130-400); RBC Distribution Width 12.5 % (11.5-14.5); Red Blood Cell (RBC) Count 3.84 mill/uL (4.20-5.40); White Blood Cell (WBC) Count 6.3 thou/uL (4.8-10.8)
[2018-12-13 05:30] LABS: Anion Gap 11 mmol/L (10-20); BUN (Urea Nitrogen) 18 mg/dL (9.8-20.1); Calc. Creatinine Clearance 91 mL/min (70-130); Calcium 8.5 mg/dL (7.8-10.44); Carbon Dioxide 22 mmol/L (23-31); Chloride 111 mmol/L (98-107); Estimated GFR-MDRD 50; Glucose 77 mg/dL (80-115); Potassium 3.8 mmol/L (3.5-5.1); Sodium 140 mmol/L (136-145)
--- NOTE | 2018-12-13 08:52 | PDOC.EVN ---
Event Note - Event Note Event Note: DC SUMMARY #[id number]
[2018-12-13] MEDS ORDERED: Aspirin 81 mg Enteric Coated Tablet PO SCH (09:00)
[2018-12-13] MEDS: Escitalopram Oxalate 20 mg Tablet PO SCH (09:01)
[2018-12-13] MEDS: Metoprolol Tartrate 25 MG TAB PO SCH (09:02)
--- NOTE | 2018-12-13 09:06 | DIS ---
DATE OF ADMISSION: 12/11/2018 DATE OF DISCHARGE: 12/13/2018 ADMITTING DIAGNOSES: 1. Atrial fibrillation. 2. Abdominal infrarenal aortic aneurysm without rupture. 3. Hypertension. 4. Chest pain. 5. History of coronary artery disease. 6. Tobacco use. DISCHARGE DIAGNOSES: 1. Atrial fibrillation, stable. 2. History of infrarenal abdominal aortic aneurysm, stable. 3. Hypertension, stable. 4. Chest pain, resolved. 5. Coronary artery disease, stable. 6. Tobacco abuse, stable. HOSPITAL COURSE: This is a 68-year-old female admitted to the hospital complaining of chest pain and unstable AFib. The patient also had an infrarenal abdominal aortic aneurysm, had a CT scan done, was evaluated and admitted to the Internal Medicine team, seen by Cardiology as well as Cardiothoracic Surgery. Consultations were placed to both teams. The patient was to see the cardiothoracic surgeon as outpatient to have a CT protocol done to determine if the patient's aneurysm has indeed increased in size and if operative capabilities intervention is needed, the patient had a 3.2-mm aneurysm in [address] scan done here in the hospital showed that it had increased to about 4.3 mm. Vascular Surgery stated they will see the patient as outpatient. The patient was not started on anticoagulation per Cardiology recommendations due to cirrhosis and was given aspirin at the point in time of discharge. Echocardiogram was also performed showing an EF of 60% to 65%, moderate dilated left atrium and right ventricular systolic pressures of 40. The patient, at the point in time of discharge, was stable. Denied any other new complaints or symptoms. Case and plan discussed with the patient at length. She understood and agreed with this plan. DISPOSITION: Home. FOLLOWUP: Follow up with PCP and Cardiology within 1 to 2 weeks. MEDICATIONS: See MAR. ACTIVITY: As tolerated with assistance as needed. DIET: Low-fat, low-calorie, high-fiber diet. CONDITION: Stable. PROGNOSIS: Good. Once again, case and plan discussed with the patient at length. She understood and agreed with this plan. Job ID: [id number]
[2018-12-13 12:17] VITALS: TEMP 98.9
[2018-12-13 16:56] VITALS: BP 135/74
== END 2018-12-13 14:31 | disposition home or self-care (01) | DRG 281 ==
LOC: ERS 01:39 → 2NO 05:10
PROVIDERS: ADMIT Internal Medicine; ATTEND Internal Medicine
PROC: 4A023N7 Measurement of Cardiac Sampling and Pressure, Left Heart, Percutaneous Approach (ICD-10-PCS; principal; 2018-12-11)
PROC: B2111ZZ Fluoroscopy of Multiple Coronary Arteries using Low Osmolar Contrast (ICD-10-PCS; 2018-12-11)
PROC: B2151ZZ Fluoroscopy of Left Heart using Low Osmolar Contrast (ICD-10-PCS; 2018-12-11)
PROC: B4101ZZ Fluoroscopy of Abdominal Aorta using Low Osmolar Contrast (ICD-10-PCS; 2018-12-11)
PROC: 5A2204Z Restoration of Cardiac Rhythm, Single (ICD-10-PCS; 2018-12-11)
DX: I48.91 Unspecified atrial fibrillation (principal); I21.A1 Myocardial infarction type 2; Z68.41 Body mass index [BMI] 40.0-44.9, adult; I95.9 Hypotension, unspecified; I34.1 Nonrheumatic mitral (valve) prolapse; K74.60 Unspecified cirrhosis of liver; I71.4 Abdominal aortic aneurysm, without rupture; I10 Essential (primary) hypertension; F17.210 Nicotine dependence, cigarettes, uncomplicated; I25.10 Atherosclerotic heart disease of native coronary artery without angina pectoris; G89.29 Other chronic pain; E66.9 Obesity, unspecified; I16.0 Hypertensive urgency; Z88.0 Allergy status to penicillin; Z91.041 Radiographic dye allergy status; Z79.899 Other long term (current) drug therapy
CPT/HCPCS: 36415; 71045; 71275; 80048; 80053; 81001; 82553; 83735; 84443; 84484; 85025; 93005; 93306; 93458; 93567; 93798; 94760; 99152; 99153; C1769; J1200; J1644; J1650; J2250; J2930; J3010; Q0153; Q9966; Q9967; S0028

== ENCOUNTER 2019-01-08 07:11 | Emergency (ER) | payer MEDICARE ==
[2019-01-08 07:43] LABS: #Basophils 0.1 thou/uL (0.0-0.2); #Eosinphils 0.3 thou/uL (0.0-0.7); #Lymphocytes 1.9 thou/uL (1.20-3.40); #Monocytes 0.7 thou/uL (0.11-0.59); #Neutrophils 3.1 thou/uL (1.40-6.50); %Basophils 1.4 % (0.0-1.0); %Eosinophils 5.3 % (0.0-10.0); %Monocytes 11.2 % (0.0-10.0); %Neutrophils 51.1 % (42.0-75.0); Hemoglobin 15.5 g/dL (12.0-16.0); Mean Corpuscular HGB CONC 33.7 g/dL (32.0-36.0); Mean Corpuscular Hemoglobin 33.2 pg (27.0-31.0); Mean Corpuscular Volume 98.5 fL (78.0-98.0); Mean Platelet Volume 7.7 fL (7.4-10.4); Platelet Count 130 thou/uL (130-400); RBC Distribution Width 12.8 % (11.5-14.5); Red Blood Cell (RBC) Count 4.66 mill/uL (4.20-5.40)
[2019-01-08 07:48] LABS: INR-International Normal Ratio 1.1; PTT 28.2 SEC (22.9-36.1); Prothrombin Time 13.8 SEC (12.0-14.7)
--- NOTE | 2019-01-08 08:00 | RAD ---
CHEST 1 VIEW: HISTORY: Chest pain, history of atrial fibrillation, shortness of breath. COMPARISON: 12/11/2018. FINDINGS: Rotation to the right. No confluent pneumonia, overt edema, or pleural effusion. IMPRESSION: No significant acute intrathoracic disease. Stable from prior study. Atherosclerosis of the aorta. POS: OFF
[2019-01-08 08:04] LABS: ALT (SGPT) 29 U/L (8-55); AST (SGOT) 42 U/L (5-34); Albumin 3.7 g/dL (3.4-4.8); Alkaline Phosphatase 102 U/L (40-150); Anion Gap 13 mmol/L (10-20); BUN (Urea Nitrogen) 13 mg/dL (9.8-20.1); Bilirubin, Total 0.8 mg/dL (0.2-1.2); Calc. Creatinine Clearance 0 mL/min (70-130); Calcium 9.4 mg/dL (7.8-10.44); Carbon Dioxide 24 mmol/L (23-31); Chloride 108 mmol/L (98-107); Estimated GFR-MDRD 41; Globulin 3.1 g/dL (2.4-3.5); Glucose 159 mg/dL (80-115); Potassium 3.9 mmol/L (3.5-5.1); Protein, Total 6.8 g/dL (6.0-8.3); Sodium 141 mmol/L (136-145)
--- NOTE | 2019-01-09 12:39 | EKG ---
Test Reason : CP Blood Pressure : / mmHG Vent. Rate : 059 BPM Atrial Rate : 059 BPM P-R Int : 158 ms QRS Dur : 076 ms QT Int : 428 ms P-R-T Axes : -12 011 070 degrees QTc Int : 423 ms Sinus bradycardia Septal infarct , age undetermined Abnormal ECG Confirmed by HECTOR UMANA D.O. ([id number]), make up editor NELI JERRY ([id number]) on 01/09/2019 12:39:19 PM Referred By: [email or web address] Confirmed By:HECTOR UMANA D.O.
== END 2019-01-08 10:10 | disposition home or self-care (01) ==
LOC: ERS 07:11
DX: R00.2 Palpitations (principal); F32.9 Major depressive disorder, single episode, unspecified; I34.1 Nonrheumatic mitral (valve) prolapse; F17.210 Nicotine dependence, cigarettes, uncomplicated; Z79.899 Other long term (current) drug therapy; Z79.51 Long term (current) use of inhaled steroids; Z79.82 Long term (current) use of aspirin
CPT/HCPCS: 71045; 80053; 84484; 85025; 85610; 85730; 93005

== ENCOUNTER 2019-03-31 00:02 | Inpatient (IN) | payer MEDICARE ==
[2019-03-31 01:05] LABS: #Basophils 0.1 thou/uL (0.0-0.2); #Eosinphils 0.3 thou/uL (0.0-0.7); #Lymphocytes 2.2 thou/uL (1.20-3.40); #Monocytes 1.1 thou/uL (0.11-0.59); #Neutrophils 3.8 thou/uL (1.40-6.50); %Basophils 0.8 % (0.0-1.0); %Eosinophils 3.8 % (0.0-10.0); %Lymphocytes 29.6 % (21.0-51.0); %Monocytes 14.3 % (0.0-10.0); %Neutrophils 51.5 % (42.0-75.0); Hemoglobin 14.4 g/dL (12.0-16.0); Mean Corpuscular HGB CONC 33.7 g/dL (32.0-36.0); Mean Corpuscular Hemoglobin 32.9 pg (27.0-31.0); Mean Corpuscular Volume 97.9 fL (78.0-98.0); Mean Platelet Volume 7.6 fL (7.4-10.4); Platelet Count 130 thou/uL (130-400); Red Blood Cell (RBC) Count 4.36 mill/uL (4.20-5.40); White Blood Cell (WBC) Count 7.4 thou/uL (4.8-10.8)
[2019-03-31 01:27] LABS: ALT (SGPT) 19 U/L (8-55); AST (SGOT) 34 U/L (5-34); Albumin 3.4 g/dL (3.4-4.8); Alkaline Phosphatase 93 U/L (40-150); Anion Gap 15 mmol/L (10-20); BUN (Urea Nitrogen) 15 mg/dL (9.8-20.1); Bilirubin, Total 0.6 mg/dL (0.2-1.2); Calc. Creatinine Clearance 0 mL/min (70-130); Calcium 9.2 mg/dL (7.8-10.44); Carbon Dioxide 21 mmol/L (23-31); Chloride 108 mmol/L (98-107); Estimated GFR-MDRD 49; Globulin 2.5 g/dL (2.4-3.5); Glucose 121 mg/dL (80-115); Potassium 3.2 mmol/L (3.5-5.1); Protein, Total 5.9 g/dL (6.0-8.3); Sodium 141 mmol/L (136-145)
[2019-03-31] MEDS ORDERED: Magnesium 2 GM/50 ML BAG (IN WATER) ONE (01:38)
[2019-03-31] MEDS ORDERED: Potassium Chloride 20 MEQ TAB ONE (01:38)
[2019-03-31] MEDS ORDERED: Enoxaparin Sodium 30 MG/0.3 ML SYRINGE ONE (02:24)
[2019-03-31] MEDS ORDERED: Enoxaparin Sodium 100 MG/ML SYRINGE ONE (02:24)
[2019-03-31 03:54] LABS: Troponin I 0.061 ng/mL (< 0.028)
[2019-03-31 07:24] LABS: Troponin I 0.109 ng/mL (< 0.028)
[2019-03-31 07:49] LABS: Hemoglobin 14.3 g/dL (12.0-16.0); Mean Corpuscular HGB CONC 33.4 g/dL (32.0-36.0); Mean Corpuscular Hemoglobin 32.8 pg (27.0-31.0); Mean Corpuscular Volume 98.2 fL (78.0-98.0); RBC Distribution Width 12.9 % (11.5-14.5); Red Blood Cell (RBC) Count 4.37 mill/uL (4.20-5.40); White Blood Cell (WBC) Count 6.5 thou/uL (4.8-10.8)
[2019-03-31 08:03] LABS: Anion Gap 12 mmol/L (10-20); BUN (Urea Nitrogen) 13 mg/dL (9.8-20.1); Calc. Creatinine Clearance 0 mL/min (70-130); Calcium 8.9 mg/dL (7.8-10.44); Carbon Dioxide 20 mmol/L (23-31); Chloride 113 mmol/L (98-107); Estimated GFR-MDRD 57; Glucose 88 mg/dL (80-115); Magnesium 2.4 mg/dL (1.6-2.6); Potassium 4.1 mmol/L (3.5-5.1); Sodium 141 mmol/L (136-145)
[2019-03-31 08:11] LABS: #Eosinphils 0.2 thou/uL (0.0-0.7); #Lymphocytes 2.4 thou/uL (1.20-3.40); #Monocytes 0.7 thou/uL (0.11-0.59); #Neutrophils 3.1 thou/uL (1.40-6.50); %Basophils 0.7 % (0.0-1.0); %Eosinophils 3.7 % (0.0-10.0); %Lymphocytes 37.1 % (21.0-51.0); %Monocytes 10.7 % (0.0-10.0); %Neutrophils 47.8 % (42.0-75.0); Platelet Count 100 thou/uL (130-400); Platelet Morphology Comment Appears Decreased; RBC Morphology Normal
--- NOTE | 2019-03-31 08:16 | RAD ---
EXAM: Single view of the chest HISTORY: Left chest pain COMPARISON: 01/08/2019 FINDINGS: Single view of the chest shows a normal sized cardiomediastinal silhouette. There is no rachel dence of consolidation, mass, or pleural effusion. The bones are unremarkable. IMPRESSION: No evidence of acute cardiopulmonary disease
[2019-03-31] MEDS ORDERED: Ondansetron ODT 4 MG TAB PO PRN (08:22)
[2019-03-31] MEDS ORDERED: Heparin 1,000 UNITS/ML VIAL ONE (10:00)
[2019-03-31] MEDS ORDERED: Aspirin Chewable 81 MG TAB ONE (10:58)
[2019-03-31] MEDS: Aspirin 81 mg Enteric Coated Tablet PO SCH (13:44)
--- NOTE | 2019-03-31 14:23 | HP ---
PRIMARY CARE PHYSICIAN: None. CHIEF COMPLAINT: Chest pain. HISTORY OF PRESENT ILLNESS: Ms. Villalobos is a 68-year-old female with past medical history of hypertension, descending aortic aneurysm, which is stable, atrial fibrillation, alcoholic cirrhosis, and chronic kidney disease, who had reported to [facility] late last night for some worsening chest pain that started around 9:00 p.m. last night. She states that she was sitting on the couch when her pain started. She states shortly after the pain started, she had become short of breath, diaphoretic and had a single episode of nausea and vomiting. She also felt lightheaded at that time. She had called 911 and while she was on her way to the ER via EMS, she was found to be in atrial fibrillation with RVR. She was bolused with a single dose of Cardizem, which brought her into a sinus rhythm. She had actually went into sinus bradycardia upon arriving to the ER. She also was found to have quite low blood pressure. She was given subcutaneous Lovenox and oral potassium chloride along with 2 g of magnesium sulfate and 1 L of normal saline. Currently, she states that the pain is now almost nonexistent. She had denied any fever, chills, any headache, blurred vision, dizziness, any chest pain, palpitations, shortness of breath, abdominal pain, nausea, or vomiting at this time. 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 REVIEW OF SYSTEMS: All other systems reviewed and found to be negative unless mentioned in the HPI. PAST MEDICAL HISTORY: Hypertension, descending aortic aneurysm, brain aneurysm, mitral valve prolapse, atrial fibrillation, hepatitis A, nonalcoholic cirrhosis, psoriasis, and chronic kidney disease. PAST SURGICAL HISTORY: Gonzales venancio due to trouble with multiple surgeries, brain aneurysm clipping, intussusception as an , appendectomy, hysterectomy, tonsillectomy, tubal ligation. PSYCHIATRIC HISTORY: Includes depression with no signs of suicidal ideation at this time. SOCIAL HISTORY: The patient lives at home with her family. She had denied any alcohol or illicit drug use, however, does admit to smoking half pack of cigarettes per day. KNOWN ALLERGIES: Iodine and penicillins. CURRENT HOME MEDICATIONS: 1. Metoprolol 12.5 mg twice daily. 2. Lexapro 20 mg oral daily. 3. Aspirin 81 mg daily. 4. Losartan 100 mg oral daily. 5. Hydralazine 50 mg oral 3 times daily. 6. Proventil HFA inhaler as needed for shortness of breath. 7. Benadryl 12.5 mg oral as needed. PHYSICAL EXAMINATION: VITAL SIGNS: Blood pressure 109/71, pulse 47, respirations 12, temperature 98.1, O2 saturation 98% on room air. GENERAL: The patient is awake, alert, and oriented x3. She is currently lying comfortably in bed and in no acute distress at this time. HEENT: Atraumatic and normocephalic. Pupils are round and reactive to light. Extraocular muscles are intact. Moist mucous membranes noted. NECK: Soft and supple. Trachea is midline. CARDIOVASCULAR: Positive S1 and S2. She appears to be in bradycardic and stable rhythm on the monitor. She also appears to have 2/6 systolic murmur noted. RESPIRATORY: Clear to auscultation bilaterally. No wheezes, rales, or rhonchi. ABDOMEN: Soft and nontender. Bowel sounds present. MUSCULOSKELETAL: Strength 5+ bilaterally in upper and lower extremities. Moves all extremities equally. Pedal and radial pulses are 2+ bilaterally. No edema noted. NEUROLOGIC: Cranial nerves 2 through 12 grossly intact. No focal deficits noted. Speech is intact and normal. Gait, not assessed. SKIN: Warm, dry and intact. No rashes. No ulceration noted. PSYCHIATRIC: Good mood and affect. LABORATORY DATA: WBC 6.5, RBC 4.37, hemoglobin 14.3, platelet 100. Sodium 141, potassium 4.1, anion gap 12, BUN 13, creatinine 0.96, estimated GFR 57, magnesium 2.4, glucose 88. Troponin less than 0.010, 0.061, and 0.109. DIAGNOSTIC IMAGING: Portable chest x-ray showed no evidence of acute cardiopulmonary disease. ASSESSMENT AND PLAN: 1. Atrial fibrillation with rapid ventricular response. The patient is now in a sinus bradycardia rhythm after she was bolused with Cardizem. Cardiology, Dr. Barnhart, will be consulted and this is pending at this time, and we would appreciate any further recommendations per Dr. Barnhart. 2. Chest pain, likely secondary to above. Her serial troponins, however, are trending upward, of which the last one being 0.109. We will check an additional troponin to see if it is further trending upward. The patient's symptoms of chest pain are now resolved and she appears to be asymptomatic at this time. 3. Hypertension, currently stable. She was actually low in the ED. Therefore, we will hold her home regimen at this time until her blood pressure improves. 4. Chronic kidney disease, currently stable. We will recheck her BMP in the morning. 5. History of aortic aneurysm, currently stable at this time. She states that she is under the care of a specialist in [place]. 6. History of hepatitis A and nonalcoholic cirrhosis. We will hold any further anticoagulation at this time due to her risk of bleeding. We will monitor H and H as she has gotten a dose of Lovenox. 7. Deep venous thrombosis and gastrointestinal prophylaxis. 8. Code status, full code. 9. Surrogate decision maker is her daughter, Chayito. DISPOSITION: Pending further workup and clinical findings, the patient will likely be discharged home. However, she will need further resources for followup with new PCP prior to discharge. Job ID: [id number]
[2019-03-31] MEDS ORDERED: ISOVUE-370 76%-LOCM 1 ML ONE (16:45)
[2019-03-31] MEDS ORDERED: methylPREDNISolone Sod Succ/PF 125 MG/2 ML VIAL IVP SCH (17:00)
[2019-03-31] MEDS ORDERED: Famotidine/PF 20 mg/2ml Vial SLOW IVP SCH (17:00)
[2019-03-31] MEDS ORDERED: diphenhydrAMINE 50 MG/ML VIAL IVP SCH (17:00)
--- NOTE | 2019-03-31 17:59 | CT ---
CT arteriogram chest with IV contrast and 3-D imaging CT arteriogram abdomen with IV contrast and 3-D imaging HISTORY: Chest and abdomen pain with radiation to back. Aneurysm. COMPARISON: 12/11/2018. FINDINGS: Normal branching of the great vessels at the aortic arch. Calcification and noncalcified pl aque within the arterial structures. Extreme tortuosity and aneurysmal dilatation of the abdominal aorta is again demonstrated. At the lev el of the inferior pole of the left kidney, the aneurysm now measures up to 4.6 cm AP diameter where it was 4.1 cm on the previous exam. No fluid in the adjacent retroperitoneum. No intimal flap. Visceral arteries remain patent. Distention of the gallbladder and nodular contour of the liver are similar in appearance to the prior study. Extensive postoperative and degenerative changes of the spine. IMPRESSION: Slight interval enlargement of the tortuous lower abdominal aortic aneurysm, measuring up to 4.6 cm. No evidence of dissection or rupture. Cirrhosis and other chronic-type findings are stable.
[2019-03-31] MEDS: Metoprolol Tartrate 25 MG TAB PO SCH (20:33)
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
--- NOTE | 2019-04-01 01:47 | CON ---
DATE OF CONSULTATION: HISTORY OF PRESENT ILLNESS: Ms. Villalobos is a 68-year-old woman who is in the hospital with atrial fibrillation and RVR. She is converted back into sinus rhythm. She has a history of abdominal aortic aneurysm and during her stay here has complained of abdominal tenderness. This was investigated with CT angiogram. This has shown a 4.6 in maximum diameter infrarenal abdominal aortic aneurysm with a tortuous neck. Her last CT scan was performed in November and showed a 4.5-cm aneurysm at that time. I have been asked to see her for further management strategies. PAST MEDICAL HISTORY: 1. Hypertension. 2. Abdominal aortic aneurysm-4.6 cm in maximal diameter currently. 3. History of brain aneurysm, repaired with coils. 4. Mitral valve prolapse. 5. Atrial fibrillation-currently in sinus rhythm. 6. Hepatitis A. 7. Nonalcoholic cirrhosis. 8. Psoriasis. 9. Chronic renal insufficiency. PAST SURGICAL HISTORY: 1. Back surgery. 2. Brain aneurysm coiling. 3. Intussusception as an . 4. Appendectomy. 5. Hysterectomy. 6. Tonsillectomy. 7. Bilateral tubal ligation. SOCIAL HISTORY: She continues to smoke a half to one pack of cigarettes a day. ALLERGIES: IODINE AND PENICILLIN. CURRENT MEDICATIONS: Noted. PHYSICAL EXAMINATION: GENERAL: This is a well-developed, well-nourished moderately obese woman, resting comfortably in bed. VITAL SIGNS: Her height is 5 feet 5 inches, weight is 236 pounds, BSA is 2.22, temperature is 98.8, pulse is 50 and regular, blood pressure 136/65. LUNGS: Clear bilaterally. HEART: Rhythm is regular without murmur. ABDOMEN: Soft. She has some tenderness throughout her lower abdomen. VASCULAR: She has palpable carotid, radial, and femoral pulses bilaterally. DIAGNOSTIC STUDIES: I have reviewed her CT angio. She has a tortuous infrarenal neck, but I think she should be repairable endovascularly. I need to review the films and will order the appropriate grafts. There is no sign of leakage or pending rupture on her CT scan. Job ID: [id number]
[2019-04-01 06:29] LABS: #Monocytes 0.1 thou/uL (0.11-0.59); #Neutrophils 4.6 thou/uL (1.40-6.50); %Basophils 0.1 % (0.0-1.0); %Eosinophils 0.2 % (0.0-10.0); %Lymphocytes 17.7 % (21.0-51.0); %Monocytes 1.6 % (0.0-10.0); %Neutrophils 80.4 % (42.0-75.0); Hemoglobin 14.4 g/dL (12.0-16.0); Mean Corpuscular HGB CONC 32.7 g/dL (32.0-36.0); Mean Corpuscular Volume 97.7 fL (78.0-98.0); Mean Platelet Volume 8.2 fL (7.4-10.4); Platelet Count 88 thou/uL (130-400); RBC Distribution Width 12.8 % (11.5-14.5); White Blood Cell (WBC) Count 5.7 thou/uL (4.8-10.8)
[2019-04-01 06:36] LABS: Anion Gap 11 mmol/L (10-20); BUN (Urea Nitrogen) 15 mg/dL (9.8-20.1); Calc. Creatinine Clearance 90 mL/min (70-130); Calcium 8.9 mg/dL (7.8-10.44); Carbon Dioxide 22 mmol/L (23-31); Chloride 108 mmol/L (98-107); Estimated GFR-MDRD 55; Glucose 144 mg/dL (80-115); Potassium 3.9 mmol/L (3.5-5.1); Sodium 137 mmol/L (136-145)
--- NOTE | 2019-04-01 08:08 | PDOC.HOSPP ---
- Subjective Encounter Date: 04/01/19 Encounter Time: 08:07 Subjective: No recurrence atrial fibrillation overnight; patient perceived some palpitations , but tele review shows NSR. Abdomen 3/10 pain/soreness, nonradiating. No SOB presently. No CP presently. - Objective Vital Signs & Weight: Vital Signs (12 hours) Temp Pulse Resp BP Pulse Ox 04/01/19 07:15 97.6 F 49 L 18 195/93 H 97 04/01/19 03:25 97.6 F 52 L 17 142/72 H 96 Weight Weight 236 lb 12.423 oz I&O: 03/31/19 04/01/19 04/02/19 06:59 06:59 06:59 Intake Total 230 Balance 230 Result Diagrams: 04/01/19 05:31 04/01/19 05:31 Hospitalist ROS - Medication Medications: Active Medications Generic Name Dose Route Start Last Admin Trade Name Freq PRN Reason Stop Dose Admin Aspirin 81 mg 03/31/19 09:00 03/31/19 13:44 Ecotrin PO Not Given DAILY GARRET Metoprolol Tartrate 25 mg 03/31/19 21:00 03/31/19 20:33 Lopressor PO 25 mg BID GARRET Administration - Exam General Appearance: NAD Eye: PERRL ENT: moist mucosa Neck: supple Heart: RRR Heart - other findings: slow Respiratory: CTAB Gastrointestinal: soft Gastrointestinal - other findings: minimal tenderness to palpation Extremities: no edema Skin: no rashes Neurological: no focal deficits, no new deficit Musculoskeletal: no muscle wasting Psychiatric: normal affect, A&O x 3 Hosp A/P (1) Atrial fibrillation with RVR Code(s): I48.91 - UNSPECIFIED ATRIAL FIBRILLATION Status: Acute (2) AAA (abdominal aortic aneurysm) Code(s): I71.4 - ABDOMINAL AORTIC ANEURYSM, WITHOUT RUPTURE Status: Chronic Qualifiers: Presence of rupture: without rupture Qualified Code(s): I71.4 - Abdominal aortic aneurysm, without rupture (3) HTN (hypertension) Code(s): I10 - ESSENTIAL (PRIMARY) HYPERTENSION Status: Chronic (4) Tobacco abuse Code(s): Z72.0 - TOBACCO USE Status: Chronic - Plan 1. Cards - h/o cath 12/13, luminal irregularities, no flow limiting stenosis. PAF - EP consult pending; presently sinus eladia HTN - resumed home hydralazine, losartan, prn clonidine. 2. Infrarenal AAA - Appreciate vascular evaluation; endovascular repair/plans underway, timeline not yet determined 3. Pulm - Encourage tobacco cessation 4. GI -previous chart notes diagnosis nonalcoholic cirrhosis. Mild thrombocytopenia noted. Check coags on next lab draw. LFTs and WBC in normal range. 5. Depression/Anxiety - resume home SSRI High risk based on comorbidities.
[2019-04-01] MEDS: Metoprolol Tartrate 25 MG TAB PO SCH ×2 (08:27→21:03)
[2019-04-01] MEDS: Aspirin 81 mg Enteric Coated Tablet PO SCH (08:28)
[2019-04-01] MEDS: Losartan 25 MG TAB PO SCH (08:28)
[2019-04-01] MEDS: Escitalopram Oxalate 20 mg Tablet PO SCH (08:28)
[2019-04-01] MEDS: hydrALAZINE 25 MG TAB PO SCH ×3 (08:28→21:02)
[2019-04-01] MEDS: Flecainide 50 MG TAB PO SCH ×2 (09:23→21:02)
[2019-04-01] MEDS: Acetaminophen 325 MG TAB PO PRN ×2 (13:07→17:12)
--- NOTE | 2019-04-01 13:07 | PDOC.CPN ---
- Subjective Date: 04/01/19 Time: 13:07 Interval history: The pt seen and examined. No overnight events. No cardiac complaints. - Objective Allergies/Adverse Reactions: Allergies Allergy/AdvReac Type Severity Reaction Status Date / Time Iodinated Contrast Media Allergy Verified 03/31/19 14:02 [Iodinated Contrast- Oral and IV Dye] Penicillins Allergy Verified 03/31/19 14:02 Visit Medications: Current Medications Acetaminophen (Tylenol) 650 mg PO Q4H PRN PRN Reason: fever or headache Aspirin (Ecotrin) 81 mg PO DAILY [facility] Last Admin: 04/01/19 08:28 Dose: 81 mg Clonidine (Catapres) 0.1 mg PO Q4H PRN PRN Reason: SBP>160 Escitalopram Oxalate (Lexapro) 20 mg PO DAILY [facility] Last Admin: 04/01/19 08:28 Dose: 20 mg Flecainide Acetate (Tambocor) 50 mg PO Q12HR [facility] Last Admin: 04/01/19 09:23 Dose: 50 mg Hydralazine HCl (Apresoline) 50 mg PO TID [facility] Last Admin: 04/01/19 08:28 Dose: 50 mg Losartan Potassium (Cozaar) 100 mg PO DAILY [facility] Last Admin: 04/01/19 08:28 Dose: 100 mg Metoprolol Tartrate (Lopressor) 12.5 mg PO BID [facility] Ondansetron HCl (Zofran Odt) 4 mg PO Q6H PRN PRN Reason: Nausea/Vomiting Ondansetron HCl (Zofran) 4 mg IVP Q6H PRN PRN Reason: Nausea/Vomiting Sodium Chloride (Flush - Normal Saline) 10 ml IVF Q12HR [facility] Sodium Chloride (Flush - Normal Saline) 10 ml IVF PRN PRN PRN Reason: Saline Flush Vital Signs & Weight: Vital Signs Temp Pulse Resp BP Pulse Ox 04/01/19 11:08 97.5 F L 52 L 18 127/66 96 04/01/19 07:15 97.6 F 49 L 18 195/93 H 97 04/01/19 03:25 97.6 F 52 L 17 142/72 H 96 Weight 236 lb 12.423 oz - Physical Exam Neck: supple neck Cardiac: regular rate and rhythm, S1/S2 Lungs: clear to auscultation, decreased breath sounds Neuro: cranial nerve 2-12 intact Musculoskeletal: normal range of motion - Labs Result Diagrams: 04/01/19 05:31 04/01/19 05:31 Troponin/CKMB Troponin I 0.109 ng/mL (< 0.028) H 03/31/19 06:23 - Telemetry Sinus rhythms and dysrhythmias: sinus rhythm - Assessment/Plan Assessment/Plan: 1. Afib with RVR - remains in SR with Flecinide 50mg BID and Metoprolol, which will be decreased to 12.5mg BID for braycardia and hx of COPD 2. AAA (abdominal aortic aneurysm) - plan for AAA repair 3. HTN (hypertension) - stable with current medication 4. COPD - stable with RA 5. non-ETOH cirrhosis - 6. Tobacco abuse - smoking cessation education given to the pt MAR reviewed pt. seen and eval. by me. I agree with the A/P y the Dial Maker. Await decision about timing and technique of AAA repair. Pt. seen by EP. , started on Flecainide. Will follow rhythm. carlos
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
[2019-04-01] MEDS ORDERED: HYDROcodone/Acetaminophen 10/325 mg Tablet PO PRN (17:14)
[2019-04-01] MEDS: HYDROcodone/Acetaminophen 5/325 mg Tablet PO PRN (17:22)
[2019-04-02] MEDS: Morphine 2 MG/ML SYRINGE SLOW IVP PRN ×2 (02:58→17:05)
[2019-04-02] MEDS: cloNIDine 0.1 MG TAB PO PRN ×2 (03:50→08:10)
[2019-04-02 06:10] LABS: Prothrombin Time 13.6 SEC (12.0-14.7)
[2019-04-02 06:21] LABS: Band 2 % (5-11); Hemoglobin 15.4 g/dL (12.0-16.0); Lymphocytes 9 % (21-51); MDiff Complete? YES; Mean Corpuscular HGB CONC 33.7 g/dL (32.0-36.0); Mean Platelet Volume 9.5 fL (7.4-10.4); Monocytes 2 % (0-10); Neutrophil 87 % (42-75); Platelet Count 57 thou/uL (130-400); Platelet Morphology Comment Appears Decreased; RBC Morphology Normal; Red Blood Cell (RBC) Count 4.67 mill/uL (4.20-5.40); White Blood Cell (WBC) Count 10.4 thou/uL (4.8-10.8)
[2019-04-02 06:26] LABS: Anion Gap 14 mmol/L (10-20); BUN (Urea Nitrogen) 17 mg/dL (9.8-20.1); Calc. Creatinine Clearance 78 mL/min (70-130); Calcium 9.2 mg/dL (7.8-10.44); Carbon Dioxide 25 mmol/L (23-31); Chloride 105 mmol/L (98-107); Estimated GFR-MDRD 47; Glucose 98 mg/dL (80-115); Magnesium 1.8 mg/dL (1.6-2.6); Potassium 3.6 mmol/L (3.5-5.1); Sodium 140 mmol/L (136-145)
[2019-04-02] MEDS: Flecainide 50 MG TAB PO SCH ×2 (08:10→19:41)
[2019-04-02] MEDS: Aspirin 81 mg Enteric Coated Tablet PO SCH (08:10)
[2019-04-02] MEDS: hydrALAZINE 25 MG TAB PO SCH ×3 (08:11→19:42)
[2019-04-02] MEDS: Acetaminophen 325 MG TAB PO PRN ×2 (08:11→19:43)
[2019-04-02] MEDS: Losartan 25 MG TAB PO SCH (08:11)
[2019-04-02] MEDS: Escitalopram Oxalate 20 mg Tablet PO SCH (08:11)
[2019-04-02] MEDS: Metoprolol Tartrate 25 MG TAB PO SCH ×2 (08:11→19:42)
[2019-04-02] MEDS: Ondansetron PF 4 MG/2 ML Vial IVP PRN ×2 (08:36→17:05)
--- NOTE | 2019-04-02 09:39 | PDOC.CPN ---
- Subjective Date: 04/02/19 Time: 09:39 Interval history: The pt seen and examined. No overnight events. No cardiac complaints. - Objective Allergies/Adverse Reactions: Allergies Allergy/AdvReac Type Severity Reaction Status Date / Time Iodinated Contrast Media Allergy Verified 03/31/19 14:02 [Iodinated Contrast- Oral and IV Dye] Penicillins Allergy Verified 03/31/19 14:02 Visit Medications: Current Medications Acetaminophen (Tylenol) 650 mg PO Q4H PRN PRN Reason: fever or headache Last Admin: 04/02/19 08:11 Dose: 650 mg Hydrocodone Bitart/Acetaminophen ([place] 10/325) 1 tab PO Q4H PRN PRN Reason: Moderate Pain (4-6) Hydrocodone Bitart/Acetaminophen ([place] 5/325) 1 tab PO Q4H PRN PRN Reason: Mild Pain (1-3) Last Admin: 04/01/19 17:22 Dose: 1 tab Aspirin (Ecotrin) 81 mg PO DAILY [facility] Last Admin: 04/02/19 08:10 Dose: 81 mg Clonidine (Catapres) 0.1 mg PO Q4H PRN PRN Reason: SBP>160 Last Admin: 04/02/19 08:10 Dose: 0.1 mg Escitalopram Oxalate (Lexapro) 20 mg PO DAILY [facility] Last Admin: 04/02/19 08:11 Dose: 20 mg Flecainide Acetate (Tambocor) 50 mg PO Q12HR [facility] Last Admin: 04/02/19 08:10 Dose: 50 mg Hydralazine HCl (Apresoline) 50 mg PO TID [facility] Last Admin: 04/02/19 08:11 Dose: 50 mg Losartan Potassium (Cozaar) 100 mg PO DAILY [facility] Last Admin: 04/02/19 08:11 Dose: 100 mg Metoprolol Tartrate (Lopressor) 12.5 mg PO BID [facility] Last Admin: 04/02/19 08:11 Dose: 12.5 mg Morphine Sulfate (Morphine) 2 mg SLOW IVP Q4H PRN PRN Reason: severe breakthrough pain Last Admin: 04/02/19 02:58 Dose: 2 mg Ondansetron HCl (Zofran Odt) 4 mg PO Q6H PRN PRN Reason: Nausea/Vomiting Ondansetron HCl (Zofran) 4 mg IVP Q6H PRN PRN Reason: Nausea/Vomiting Last Admin: 04/02/19 08:36 Dose: 4 mg Sodium Chloride (Flush - Normal Saline) 10 ml IVF Q12HR [facility] Last Admin: 04/02/19 08:13 Dose: 10 ml Sodium Chloride (Flush - Normal Saline) 10 ml IVF PRN PRN PRN Reason: Saline Flush Vital Signs & Weight: Vital Signs Temp Pulse Resp BP BP BP Pulse Ox 04/02/19 08:11 74 04/02/19 08:10 173/85 H 04/02/19 07:45 102.8 F H 74 18 173/85 H 92 L 04/02/19 05:10 72 172/60 H 04/02/19 04:55 71 168/80 H 04/02/19 03:50 188/101 H 04/02/19 03:40 99.7 F H 71 24 H 185/89 H 98 04/02/19 00:00 139/70 Weight 236 lb 12.423 oz - Physical Exam Neck: supple neck Cardiac: regular rate and rhythm, S1/S2 Lungs: clear to auscultation Abdomen: unremarkable - Labs Result Diagrams: 04/02/19 05:47 04/02/19 05:47 Troponin/CKMB Troponin I 0.109 ng/mL (< 0.028) H 03/31/19 06:23 - Telemetry Sinus rhythms and dysrhythmias: sinus rhythm - Assessment/Plan Assessment/Plan: 1. Afib with RVR - remains in SR with Flecinide 50mg BID and Metoprolol, which will be decreased to 12.5mg BID for braycardia and hx of COPD 2. AAA (abdominal aortic aneurysm) - plan for AAA repair 3. HTN (hypertension) - will increase Hydralazine from 50mg to 75mg TID 4. COPD - stable with RA 5. non-ETOH cirrhosis - 6. Tobacco abuse - smoking cessation education given to the pt MAR reviewed Pt. seen and eval. by me. She is not feeling well today and had a temp. up to 102. The WBC is increased and the platelets have dropped. BP this afternoon is also decreased. possible infectionj. Denies cough or dysuria. Still some mild abd. discomfort. She is maintaining NSR and tolerating Flecainide. The AAA will be managed by CV surgery.. The cardiac status appears stable. carlos
[2019-04-02] MEDS ORDERED: hydrALAZINE 25 MG TAB PO SCH (09:45)
[2019-04-02 09:56] LABS: Bacteria/HPF None Seen HPF (None Seen); Bilirubin Negative (Negative); Blood, Urine Trace (Negative); Clarity Clear (Clear); Glucose, Urine (Dipstick) Normal (Negative); Leukocyte Negative Leu/uL (Negative); Nitrite Negative (Negative); Protein, Urine (Dipstick) Negative (Neg-Trace); RBC/HPF 0-3 HPF (0-3); Squamous Epithelial 0-3 HPF (0-3); Urobilinogen Normal mg/dL (Less than 2); WBC/HPF 0-3 HPF (0-3)
--- NOTE | 2019-04-02 12:25 | RAD ---
PA AND LATERAL VIEWS CHEST: Date: 04/02/19 HISTORY: Fever. FINDINGS: Comparison made with exam of 03/31/19. There is continued elevation of the right hemidiaphragm. The heart size is normal. The aorta is tortu ous. The lungs are expanded without focal areas of consolidation, pneumothoraces, or pleural effusion s. There are degenerative changes in the spine. IMPRESSION: No radiographic evidence of acute cardiopulmonary process. POS: [facility]
--- NOTE | 2019-04-02 13:33 | PRG ---
DATE OF SERVICE: 04/02/2019 SUBJECTIVE: Ms. Villalobos is the feeling very nauseous this morning, but denies dizziness or palpitations. No chest pains were felt. No fever, chills, or cough. REVIEW OF SYSTEMS: Rest of review of system, unremarkable. OBJECTIVE: VITAL SIGNS: Blood pressure is 173/85, heart rate 74, respiratory rate is 16, temperature 99.4 degrees Fahrenheit. GENERAL: Alert and oriented woman, who is in distress with nausea. NECK: Supple. Jugular veins not distended. CHEST: Coarse. No crackles. HEART: Sounds are regular to rate and rhythm. No murmur or gallop. ABDOMEN: Benign. Obese. Bowel sounds are positive. EXTREMITIES: Lower extremities without edema, clubbing, or cyanosis. DATABASE: Telemetry strips reviewed revealing sinus rhythm, no bradycardia or VT/proarrhythmia noted. LABORATORY DATA: White cell count is 10.4, hemoglobin 15.4, platelet count is 57. Sodium 140, potassium 3.6, BUN is 17, creatinine 1.14. ASSESSMENT AND PLAN: Ms. Villalobos is a pleasant 68-year-old woman with history of abdominal aortic aneurysm, hypertension, chronic obstructive pulmonary disease, obesity, who presenting with an episode of atrial fibrillation with rapid rates, now maintaining sinus rhythm on low-dose flecainide, and continues on metoprolol. She also has a bradyarrhythmia, but so far the bradycardia is not extreme. Monitor for worsening. Overnight, mild eladia rates in the 50s are seen. Plan is to continue flecainide and the low-dose metoprolol. Depending on the platelet counts, anticoagulation is a consideration, but right now, platelet counts are decreasing. Therefore, I would hold off on that just yet. Long-term, once she is able to take the anticoagulants, she may be a candidate for ablation procedure in the future. We will see her back in the office. At this point, we will sign off. Thank you for allowing me to participate in the care of this patient. Job ID: [id number]
[2019-04-02] MEDS: cefTRIAXone\\ROCEPHIN 2 GM in Sodium Chloride 0.9% 100 ML IVPB SCH (17:06)
[2019-04-02] MEDS ORDERED: Doxycycline 100 MG CAP PO SCH (21:00)
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
--- NOTE | 2019-04-02 23:13 | PDOC.HOSPP ---
- Subjective Encounter Date: 04/02/19 Encounter Time: 17:00 Subjective: Patient seen and examined for A fib. New onset fever. No CP or SOB. Mild cough. No N/V/D. Chronic back pain. No other complaints. No overnight events - Objective Vital Signs & Weight: Vital Signs (12 hours) Temp Pulse Resp BP BP Pulse Ox 04/02/19 21:00 102.4 F H 61 20 126/61 92 L 04/02/19 20:00 92 L 04/02/19 19:42 63 126/61 04/02/19 17:06 64 04/02/19 16:36 100.5 F H 64 18 184/93 H 94 L 04/02/19 11:50 98.8 F 55 L 16 96/67 94 L 04/02/19 11:49 74 Weight Weight 236 lb 12.423 oz I&O: 04/01/19 04/02/19 04/03/19 06:59 06:59 06:59 Intake Total 230 1200 450 Balance 230 1200 450 Result Diagrams: 04/02/19 05:47 04/02/19 05:47 EKG Reviewed by me: Yes (Tele SB) Hospitalist ROS - Review of Systems Respiratory: denies: cough, dry, shortness of breath, hemoptysis, SOB with excertion, pleuritic pain, sputum, wheezing, other Cardiovascular: denies: chest pain, palpitations, orthopnea, paroxysmal noc. dyspnea, edema, light headedness, other Gastrointestinal: denies: nausea, vomitting, abdominal pain, diarrhea, constipation, melena, hematochezia, other - Medication Medications: Active Medications Generic Name Dose Route Start Last Admin Trade Name Freq PRN Reason Stop Dose Admin Acetaminophen 650 mg 04/01/19 13:00 04/02/19 19:43 Tylenol PO 650 mg Q4H PRN Administration fever or headache Hydrocodone Bitart/Acetaminophen 1 tab 04/01/19 17:14 04/01/19 17:22 [place] 5/325 PO 1 tab Q4H PRN Administration Mild Pain (1-3) Aspirin 81 mg 03/31/19 09:00 04/02/19 08:10 Ecotrin PO 81 mg DAILY [facility] Administration Clonidine 0.1 mg 04/01/19 08:05 04/02/19 08:10 Catapres PO 0.1 mg Q4H PRN Administration SBP>160 Doxycycline Hyclate 100 mg 04/02/19 21:00 04/02/19 19:41 Vibramycin PO 100 mg BID [facility] Administration Escitalopram Oxalate 20 mg 04/01/19 09:00 04/02/19 08:11 Lexapro PO 20 mg DAILY [facility] Administration Flecainide Acetate 50 mg 04/01/19 09:00 04/02/19 19:41 Tambocor PO 50 mg Q12HR [facility] Administration Hydralazine HCl 75 mg 04/02/19 15:00 04/02/19 19:42 Apresoline PO 75 mg TID [facility] Administration Ceftriaxone Sodium 2 gm/ 100 mls @ 200 mls/hr 04/02/19 16:00 04/02/19 17:06 Sodium Chloride IVPB 100 mls Q24HR [facility] Administration Losartan Potassium 100 mg 04/01/19 09:00 04/02/19 08:11 Cozaar PO 100 mg DAILY [facility] Administration Metoprolol Tartrate 12.5 mg 04/01/19 21:00 04/02/19 19:42 Lopressor PO 12.5 mg BID [facility] Administration Morphine Sulfate 2 mg 04/01/19 17:15 04/02/19 17:05 Morphine SLOW IVP 2 mg Q4H PRN Administration severe breakthrough pain Ondansetron HCl 4 mg 03/31/19 08:22 04/02/19 17:05 Zofran IVP 4 mg Q6H PRN Administration Nausea/Vomiting Sodium Chloride 10 ml 04/01/19 21:00 04/02/19 19:45 Flush - Normal Saline IVF 10 ml Q12HR [facility] Administration - Exam General Appearance: NAD Neck: supple, no JVD Heart: RRR, no gallops Respiratory: CTAB, no rales Gastrointestinal: soft, non-tender, non-distended, normal bowel sounds Extremities: no edema Hosp A/P (1) Atrial fibrillation with RVR Code(s): I48.91 - UNSPECIFIED ATRIAL FIBRILLATION Status: Acute (2) Sepsis Code(s): A41.9 - SEPSIS, UNSPECIFIED ORGANISM Status: Acute (3) Non-alcoholic cirrhosis Status: Chronic (4) AAA (abdominal aortic aneurysm) Code(s): I71.4 - ABDOMINAL AORTIC ANEURYSM, WITHOUT RUPTURE Status: Chronic Qualifiers: Presence of rupture: without rupture Qualified Code(s): I71.4 - Abdominal aortic aneurysm, without rupture (5) HTN (hypertension) Code(s): I10 - ESSENTIAL (PRIMARY) HYPERTENSION Status: Chronic (6) Obesity (BMI 30-39.9) Code(s): E66.9 - OBESITY, UNSPECIFIED Status: Acute - Plan Started on Ceftriaxone Add Doxycycline Blood and urine culture obtained Cont Flecainide Cont rate control meds AM labs Cont other meds as above
[2019-04-03] MEDS: Morphine 2 MG/ML SYRINGE SLOW IVP PRN (03:50)
[2019-04-03] MEDS ORDERED: Vancomycin HCl 1 GM in Premix Bag 1 BAG IVPB SCH (08:15)
[2019-04-03] MEDS: hydrALAZINE 25 MG TAB PO SCH ×3 (08:48→20:29)
[2019-04-03] MEDS: Flecainide 50 MG TAB PO SCH ×2 (08:48→20:26)
[2019-04-03] MEDS: Escitalopram Oxalate 20 mg Tablet PO SCH (08:48)
[2019-04-03] MEDS: Aspirin 81 mg Enteric Coated Tablet PO SCH (08:48)
[2019-04-03] MEDS: Losartan 25 MG TAB PO SCH (08:48)
[2019-04-03] MEDS: Metoprolol Tartrate 25 MG TAB PO SCH ×2 (08:49→20:26)
[2019-04-03] MEDS: Acetaminophen 325 MG TAB PO PRN (08:49)
[2019-04-03 09:40] LABS: #Lymphocytes 0.9 thou/uL (1.20-3.40); #Monocytes 0.5 thou/uL (0.11-0.59); #Neutrophils 2.6 thou/uL (1.40-6.50); %Basophils 0.4 % (0.0-1.0); %Eosinophils 0.6 % (0.0-10.0); %Lymphocytes 21.3 % (21.0-51.0); %Monocytes 13.1 % (0.0-10.0); %Neutrophils 64.5 % (42.0-75.0); Hemoglobin 13.3 g/dL (12.0-16.0); Mean Corpuscular HGB CONC 33.3 g/dL (32.0-36.0); Mean Corpuscular Hemoglobin 32.6 pg (27.0-31.0); Mean Corpuscular Volume 98.1 fL (78.0-98.0); Platelet Count 61 thou/uL (130-400); Red Blood Cell (RBC) Count 4.08 mill/uL (4.20-5.40)
[2019-04-03 10:01] LABS: ALT (SGPT) 22 U/L (8-55); AST (SGOT) 38 U/L (5-34); Alkaline Phosphatase 80 U/L (40-150); Anion Gap 12 mmol/L (10-20); BUN (Urea Nitrogen) 21 mg/dL (9.8-20.1); Bilirubin, Total 0.5 mg/dL (0.2-1.2); CRP (Inflammatory) 8.41 mg/dL (= or < 0.5); Calc. Creatinine Clearance 74 mL/min (70-130); Calcium 8.4 mg/dL (7.8-10.44); Carbon Dioxide 25 mmol/L (23-31); Chloride 102 mmol/L (98-107); Estimated GFR-MDRD 44; Globulin 2.3 g/dL (2.4-3.5); Glucose 138 mg/dL (80-115); Lipase 21 U/L (8-78); Magnesium 1.8 mg/dL (1.6-2.6); Phosphorus 2.9 mg/dL (2.3-4.7); Potassium 3.1 mmol/L (3.5-5.1); Protein, Total 5.3 g/dL (6.0-8.3); Sodium 136 mmol/L (136-145)
[2019-04-03] MEDS ORDERED: Potassium Chloride 40 MEQ in Sodium Chloride 0.45% 1,000 ML IV SCH (10:30)
[2019-04-03] MEDS: Potassium Chloride 20 MEQ TAB PO SCH ×2 (12:27→17:30)
[2019-04-03] MEDS: cefTRIAXone\\ROCEPHIN 2 GM in Sodium Chloride 0.9% 100 ML IVPB SCH (15:26)
[2019-04-03] MEDS ORDERED: Ibuprofen 200 MG TAB PO PRN (15:45)
[2019-04-03] MEDS ORDERED: Acetaminophen 325 MG TAB PO PRN (15:46)
[2019-04-03] MEDS: HYDROcodone/Acetaminophen 5/325 mg Tablet PO PRN (20:27)
--- NOTE | 2019-04-03 22:21 | PDOC.HOSPP ---
- Subjective Encounter Date: 04/03/19 Encounter Time: 10:30 Subjective: Patient seen and examined for Sepsis. Remains in SR. Feels gen weak. No CP. No new complaints. No overnight events - Objective Vital Signs & Weight: Vital Signs (12 hours) Temp Pulse Resp BP BP BP Pulse Ox 04/03/19 20:29 57 L 130/64 04/03/19 19:00 100.0 F H 57 L 20 130/64 96 04/03/19 16:12 98.4 F 61 20 106/57 L 95 04/03/19 14:45 52 L 128/60 04/03/19 11:34 98.2 F 53 L 20 80/52 L 93 L Weight Weight 236 lb 12.423 oz I&O: 04/02/19 04/03/19 04/04/19 06:59 06:59 06:59 Intake Total 1200 700 Balance 1200 700 Result Diagrams: 04/03/19 09:30 04/03/19 09:30 Additional Labs: Microbiology 04/02/19 17:30 Nasopharyngeal swab Respiratory Virus Panel (PCR) - Final 04/02/19 11:12 Venous blood - Right Arm Blood Culture - Preliminary Methicillin resistant S.aureus 04/02/19 11:08 Venous blood - Left Hand Blood Culture - Preliminary Gram Positive Cocci 04/02/19 08:30 Urine voided Urine Culture - Preliminary EKG Reviewed by me: Yes (Tele SR) Hospitalist ROS - Review of Systems Cardiovascular: denies: chest pain, palpitations, orthopnea, paroxysmal noc. dyspnea, edema, light headedness, other Gastrointestinal: denies: nausea, vomitting, abdominal pain, diarrhea, constipation, melena, hematochezia, other - Medication Medications: Active Medications Generic Name Dose Route Start Last Admin Trade Name Freq PRN Reason Stop Dose Admin Hydrocodone Bitart/Acetaminophen 1 tab 04/01/19 17:14 04/03/19 09:57 [place] 10/325 PO 1 tab Q4H PRN Administration Moderate Pain (4-6) Hydrocodone Bitart/Acetaminophen 1 tab 04/01/19 17:14 04/03/19 20:27 [place] 5/325 PO 1 tab Q4H PRN Administration Mild Pain (1-3) Aspirin 81 mg 03/31/19 09:00 04/03/19 08:48 Ecotrin PO 81 mg DAILY [facility] Administration Clonidine 0.1 mg 04/01/19 08:05 04/02/19 08:10 Catapres PO 0.1 mg Q4H PRN Administration SBP>160 Escitalopram Oxalate 20 mg 04/01/19 09:00 04/03/19 08:48 Lexapro PO 20 mg DAILY [facility] Administration Flecainide Acetate 50 mg 04/01/19 09:00 04/03/19 20:26 Tambocor PO 50 mg Q12HR [facility] Administration Hydralazine HCl 75 mg 04/02/19 15:00 04/03/19 20:29 Apresoline PO 75 mg TID [facility] Administration Vancomycin HCl 2 gm/ Sodium 500 mls @ 250 mls/hr 04/03/19 10:00 04/03/19 09: 52 Chloride IVPB 500 mls Q24HR [facility] Administration Potassium Chloride 40 meq/ 1,020 mls @ 70 mls/hr 04/03/19 10:30 04/03/19 12: 27 Sodium Chloride IV 04/04/19 01:04 1,020 mls .[id number] [facility] Administration Ibuprofen 400 mg 04/03/19 15:45 04/03/19 17:30 Motrin PO 400 mg Q6H PRN Administration Moderate Pain (4-6) Losartan Potassium 100 mg 04/01/19 09:00 04/03/19 08:48 Cozaar PO 100 mg DAILY [facility] Administration Metoprolol Tartrate 12.5 mg 04/01/19 21:00 04/03/19 20:26 Lopressor PO 12.5 mg BID [facility] Administration Morphine Sulfate 2 mg 04/01/19 17:15 04/03/19 03:50 Morphine SLOW IVP 2 mg Q4H PRN Administration severe breakthrough pain Ondansetron HCl 4 mg 03/31/19 08:22 04/02/19 17:05 Zofran IVP 4 mg Q6H PRN Administration Nausea/Vomiting Potassium Chloride 20 meq 04/03/19 12:00 04/03/19 17:30 K-Dur PO 04/04/19 08:01 20 meq TID-WM [facility] Administration Sodium Chloride 10 ml 04/01/19 21:00 04/03/19 20:49 Flush - Normal Saline IVF Not Given Q12HR [facility] - Exam General Appearance: NAD Neck: supple, no JVD Heart: RRR, no gallops, no rubs Respiratory: CTAB, no rales Gastrointestinal: soft, non-tender, normal bowel sounds Extremities: no edema Neurological: no new deficit Hosp A/P (1) Atrial fibrillation with RVR Code(s): I48.91 - UNSPECIFIED ATRIAL FIBRILLATION Status: Acute (2) Sepsis Code(s): A41.9 - SEPSIS, UNSPECIFIED ORGANISM Status: Acute (3) Non-alcoholic cirrhosis Status: Chronic (4) AAA (abdominal aortic aneurysm) Code(s): I71.4 - ABDOMINAL AORTIC ANEURYSM, WITHOUT RUPTURE Status: Chronic Qualifiers: Presence of rupture: without rupture Qualified Code(s): I71.4 - Abdominal aortic aneurysm, without rupture (5) HTN (hypertension) Code(s): I10 - ESSENTIAL (PRIMARY) HYPERTENSION Status: Chronic (6) Obesity (BMI 30-39.9) Code(s): E66.9 - OBESITY, UNSPECIFIED Status: Acute (7) MRSA bacteremia Code(s): R78.81 - BACTEREMIA Status: Acute - Plan plan discussed w/ family, DVT proph w/SCDs Start IV Vancomycin Monitor Vancomycin level Check Echo Cont Ceftriaxone DC Doxycycline Cont Flecainide and other meds as above AM labs
--- NOTE | 2019-04-04 03:16 | EKG ---
Test Reason : Blood Pressure : / mmHG Vent. Rate : 118 BPM Atrial Rate : 125 BPM P-R Int : 000 ms QRS Dur : 094 ms QT Int : 366 ms P-R-T Axes : 000 006 085 degrees QTc Int : 513 ms Atrial fibrillation with rapid ventricular response Cannot rule out Anterior infarct , age undetermined Abnormal ECG Confirmed by ELOY ARELLANO DO ([id number]), website/blog editor JAKI KAUR ([id number]) on 04/04/2019 3:15:13 AM Referred By: Confirmed By:ELOY ARELLANO DO
--- NOTE | 2019-04-04 03:16 | EKG ---
Test Reason : Blood Pressure : / mmHG Vent. Rate : 045 BPM Atrial Rate : 045 BPM P-R Int : 182 ms QRS Dur : 086 ms QT Int : 472 ms P-R-T Axes : 082 006 060 degrees QTc Int : 408 ms Marked sinus bradycardia Cannot rule out Anterior infarct , age undetermined Abnormal ECG Confirmed by ELOY ARELLANO DO ([id number]), international editorial producer JAKI KAUR ([id number]) on 04/04/2019 3:15:15 AM Referred By: Confirmed By:ELOY ARELLANO DO
[2019-04-04 05:22] LABS: Band 8 % (5-11); Hemoglobin 14.2 g/dL (12.0-16.0); Lymphocytes 22 % (21-51); MDiff Complete? YES; Mean Corpuscular HGB CONC 32.7 g/dL (32.0-36.0); Mean Corpuscular Hemoglobin 32.6 pg (27.0-31.0); Mean Corpuscular Volume 99.6 fL (78.0-98.0); Mean Platelet Volume 8.6 fL (7.4-10.4); Monocytes 18 % (0-10); Neutrophil 51 % (42-75); Platelet Count 55 thou/uL (130-400); Platelet Morphology Comment Appears Decreased; RBC Distribution Width 12.9 % (11.5-14.5); RBC Morphology Normal; Reactive Lymphocytes 1 % (0-10); Red Blood Cell (RBC) Count 4.35 mill/uL (4.20-5.40); White Blood Cell (WBC) Count 5.4 thou/uL (4.8-10.8)
[2019-04-04 05:34] LABS: ALT (SGPT) 44 U/L (8-55); AST (SGOT) 66 U/L (5-34); Albumin 3.2 g/dL (3.4-4.8); Alkaline Phosphatase 95 U/L (40-150); Anion Gap 9 mmol/L (10-20); BUN (Urea Nitrogen) 16 mg/dL (9.8-20.1); Bilirubin, Total 0.5 mg/dL (0.2-1.2); Calc. Creatinine Clearance 79 mL/min (70-130); Calcium 8.9 mg/dL (7.8-10.44); Carbon Dioxide 30 mmol/L (23-31); Chloride 104 mmol/L (98-107); Estimated GFR-MDRD 48; Globulin 2.6 g/dL (2.4-3.5); Glucose 104 mg/dL (80-115); Potassium 3.8 mmol/L (3.5-5.1); Protein, Total 5.8 g/dL (6.0-8.3); Sodium 139 mmol/L (136-145)
[2019-04-04] MEDS: Metoprolol Tartrate 25 MG TAB PO SCH ×2 (10:48→21:47)
[2019-04-04] MEDS: Potassium Chloride 20 MEQ TAB PO SCH (10:48)
[2019-04-04] MEDS: hydrALAZINE 25 MG TAB PO SCH ×3 (10:49→21:39)
[2019-04-04] MEDS: Losartan 25 MG TAB PO SCH (10:49)
[2019-04-04] MEDS: Flecainide 50 MG TAB PO SCH ×2 (10:50→21:39)
[2019-04-04] MEDS: Escitalopram Oxalate 20 mg Tablet PO SCH (10:51)
[2019-04-04] MEDS: Aspirin 81 mg Enteric Coated Tablet PO SCH (10:51)
[2019-04-04] MEDS: Morphine 2 MG/ML SYRINGE SLOW IVP PRN ×2 (13:58→23:51)
--- NOTE | 2019-04-04 15:12 | PRG ---
DATE OF SERVICE: 04/04/2019 SUBJECTIVE: Having quite a bit of pain in the joints of knees and ankles. She noticed inflamed area in the left antecubital fossa where a previous antecubital IV access had been placed. OBJECTIVE: VITAL SIGNS: She had a temperature of 100, now she is 99.3. LUNGS: Clear. HEART: S1-S2. Regular rate. ABDOMEN: Soft. Not distended. SKIN: Left antecubital fossa with evidence of septic thrombophlebitis. LABORATORY DATA: Microbiology with MRSA. The patient was admitted on 03/31 and the blood cultures are from 04/02. ASSESSMENT AND DISCUSSION: Atrial fibrillation, chest pain, cirrhosis due to steatohepatitis, and hospital acquired septic thrombophlebitis causing MRSA bacteremia. The patient will probably need at least 2 weeks of IV vancomycin, if not, longer. May develop septic dissemination to all the sites and we will have to continue monitoring her knees and ankles and spine and lungs as well as endocardium. We will check her echocardiogram. Again, she will need vancomycin at least for 2 weeks, if not, for 4. We will see how she progresses. Job ID: [id number]
--- NOTE | 2019-04-04 17:07 | PDOC.HOSPP ---
- Subjective Encounter Date: 04/04/19 Encounter Time: 13:00 Subjective: Patient seen and examined for Afib/Bacteremia. Gen weakness +. No fever or chills. No new complaints. No overnight events - Objective Vital Signs & Weight: Vital Signs (12 hours) Temp Pulse Resp BP BP Pulse Ox 04/04/19 16:40 98.9 F 56 L 18 126/67 94 L 04/04/19 14:06 55 L 04/04/19 11:50 99.3 F 55 L 18 149/85 H 96 04/04/19 10:49 57 L 04/04/19 07:45 95 04/04/19 06:00 98.6 F 57 L 16 123/61 96 Weight Weight 236 lb 12.423 oz I&O: 04/03/19 04/04/19 04/05/19 06:59 06:59 06:59 Intake Total 700 900 Output Total 1800 Balance 700 -900 Result Diagrams: 04/04/19 04:39 04/04/19 04:39 EKG Reviewed by me: Yes (Tele SR) Hospitalist ROS - Review of Systems Cardiovascular: denies: chest pain, palpitations, orthopnea, paroxysmal noc. dyspnea, edema, light headedness, other Gastrointestinal: denies: nausea, vomitting, abdominal pain, diarrhea, constipation, melena, hematochezia, other - Medication Medications: Active Medications Generic Name Dose Route Start Last Admin Trade Name Freq PRN Reason Stop Dose Admin Hydrocodone Bitart/Acetaminophen 1 tab 04/01/19 17:14 04/03/19 09:57 [place] 10/325 PO 1 tab Q4H PRN Administration Moderate Pain (4-6) Hydrocodone Bitart/Acetaminophen 1 tab 04/01/19 17:14 04/03/19 20:27 [place] 5/325 PO 1 tab Q4H PRN Administration Mild Pain (1-3) Aspirin 81 mg 03/31/19 09:00 04/04/19 10:51 Ecotrin PO 81 mg DAILY [facility] Administration Clonidine 0.1 mg 04/01/19 08:05 04/02/19 08:10 Catapres PO 0.1 mg Q4H PRN Administration SBP>160 Escitalopram Oxalate 20 mg 04/01/19 09:00 04/04/19 10:51 Lexapro PO 20 mg DAILY [facility] Administration Flecainide Acetate 50 mg 04/01/19 09:00 04/04/19 10:50 Tambocor PO 50 mg Q12HR [facility] Administration Hydralazine HCl 75 mg 04/02/19 15:00 04/04/19 14:06 Apresoline PO 75 mg TID [facility] Administration Vancomycin HCl 2 gm/ Sodium 500 mls @ 250 mls/hr 04/03/19 10:00 04/04/19 10: 50 Chloride IVPB 500 mls Q24HR [facility] Administration Losartan Potassium 100 mg 04/01/19 09:00 04/04/19 10:49 Cozaar PO 100 mg DAILY [facility] Administration Metoprolol Tartrate 12.5 mg 04/01/19 21:00 04/04/19 10:48 Lopressor PO 12.5 mg BID [facility] Administration Morphine Sulfate 2 mg 04/01/19 17:15 04/04/19 13:58 Morphine SLOW IVP 2 mg Q4H PRN Administration severe breakthrough pain Ondansetron HCl 4 mg 03/31/19 08:22 04/02/19 17:05 Zofran IVP 4 mg Q6H PRN Administration Nausea/Vomiting Sodium Chloride 10 ml 04/01/19 21:00 04/04/19 10:50 Flush - Normal Saline IVF 10 ml Q12HR [facility] Administration - Exam General Appearance: NAD Heart: RRR, no gallops Respiratory: CTAB, no wheezes, no rales, no ronchi Gastrointestinal: soft, non-tender, non-distended, normal bowel sounds Extremities: no edema Hosp A/P (1) Atrial fibrillation with RVR Code(s): I48.91 - UNSPECIFIED ATRIAL FIBRILLATION Status: Acute (2) Sepsis Code(s): A41.9 - SEPSIS, UNSPECIFIED ORGANISM Status: Acute (3) Non-alcoholic cirrhosis Status: Chronic (4) AAA (abdominal aortic aneurysm) Code(s): I71.4 - ABDOMINAL AORTIC ANEURYSM, WITHOUT RUPTURE Status: Chronic Qualifiers: Presence of rupture: without rupture Qualified Code(s): I71.4 - Abdominal aortic aneurysm, without rupture (5) HTN (hypertension) Code(s): I10 - ESSENTIAL (PRIMARY) HYPERTENSION Status: Chronic (6) Obesity (BMI 30-39.9) Code(s): E66.9 - OBESITY, UNSPECIFIED Status: Acute (7) MRSA bacteremia Code(s): R78.81 - BACTEREMIA Status: Acute (8) Septic thrombophlebitis Code(s): I80.9 - PHLEBITIS AND THROMBOPHLEBITIS OF UNSPECIFIED SITE Status: Acute - Plan out of bed/ambulate Start IV Vancomycin with Vancomycin level monitoring Await Echo Consult wound care Cont Flecainide and other meds as above AM labs No Lovenox due to thrombocytopenia
[2019-04-05 05:41] LABS: Hemoglobin 13.3 g/dL (12.0-16.0); Platelet Count 62 thou/uL (130-400)
[2019-04-05 05:59] LABS: Anion Gap 11 mmol/L (10-20); BUN (Urea Nitrogen) 12 mg/dL (9.8-20.1); Calc. Creatinine Clearance 93 mL/min (70-130); Calcium 8.5 mg/dL (7.8-10.44); Carbon Dioxide 26 mmol/L (23-31); Chloride 103 mmol/L (98-107); Estimated GFR-MDRD 58; Glucose 97 mg/dL (80-115); Potassium 3.6 mmol/L (3.5-5.1); Sodium 136 mmol/L (136-145)
[2019-04-05] MEDS: Morphine 2 MG/ML SYRINGE SLOW IVP PRN (06:08)
[2019-04-05] MEDS: cloNIDine 0.1 MG TAB PO PRN (06:09)
[2019-04-05 09:45] LABS: Vancomycin, Trough 9.6 ug/mL
[2019-04-05] MEDS: Vancomycin HCl 1.5 GM in Sodium Chloride 0.9% 250 ML 300 ML IVPB SCH ×2 (10:09→21:15)
[2019-04-05] MEDS: Escitalopram Oxalate 20 mg Tablet PO SCH (10:13)
[2019-04-05] MEDS: Potassium Chloride 10 MEQ TAB PO SCH ×2 (10:13→16:12)
[2019-04-05] MEDS: hydrALAZINE 25 MG TAB PO SCH ×3 (10:14→21:13)
[2019-04-05] MEDS: Aspirin 81 mg Enteric Coated Tablet PO SCH (10:14)
[2019-04-05] MEDS: Losartan 25 MG TAB PO SCH (10:14)
[2019-04-05] MEDS: Metoprolol Tartrate 25 MG TAB PO SCH ×3 (10:32→21:14)
[2019-04-05] MEDS: Flecainide 50 MG TAB PO SCH ×2 (10:49→21:14)
--- NOTE | 2019-04-05 11:45 | PDOC.CPN ---
- Subjective Date: 04/05/19 Time: 11:45 Interval history: The pt seen and examined. No overnight events. No cardiac complaints. Her HR was 45 this AM when she was sleeping. She denied dizziness or lightheadness - Objective Allergies/Adverse Reactions: Allergies Allergy/AdvReac Type Severity Reaction Status Date / Time Iodinated Contrast Media Allergy Verified 03/31/19 14:02 [Iodinated Contrast- Oral and IV Dye] Penicillins Allergy Verified 03/31/19 14:02 Visit Medications: Current Medications Acetaminophen (Tylenol) 325 mg PO Q6H PRN PRN Reason: Headache/Fever or Pain Hydrocodone Bitart/Acetaminophen ([place] 10/325) 1 tab PO Q4H PRN PRN Reason: Moderate Pain (4-6) Last Admin: 04/03/19 09:57 Dose: 1 tab Hydrocodone Bitart/Acetaminophen ([place] 5/325) 1 tab PO Q4H PRN PRN Reason: Mild Pain (1-3) Last Admin: 04/03/19 20:27 Dose: 1 tab Aspirin (Ecotrin) 81 mg PO DAILY [facility] Last Admin: 04/05/19 10:14 Dose: 81 mg Clonidine (Catapres) 0.1 mg PO Q4H PRN PRN Reason: SBP>160 Last Admin: 04/05/19 06:09 Dose: 0.1 mg Escitalopram Oxalate (Lexapro) 20 mg PO DAILY [facility] Last Admin: 04/05/19 10:13 Dose: 20 mg Flecainide Acetate (Tambocor) 50 mg PO Q12HR [facility] Last Admin: 04/05/19 10:49 Dose: 50 mg Hydralazine HCl (Apresoline) 75 mg PO TID [facility] Last Admin: 04/05/19 10:14 Dose: 75 mg Vancomycin HCl 1.5 gm/ Sodium (Chloride) 300 mls @ 200 mls/hr IVPB 1000,2200 [facility] Last Admin: 04/05/19 10:09 Dose: 300 mls Losartan Potassium (Cozaar) 100 mg PO DAILY [facility] Last Admin: 04/05/19 10:14 Dose: 100 mg Metoprolol Tartrate (Lopressor) 12.5 mg PO BID [facility] Last Admin: 04/05/19 10:49 Dose: 12.5 mg Miscellaneous Medication (Pharmacy To Dose) 1 each IVPB ASDIR [facility] Morphine Sulfate (Morphine) 2 mg SLOW IVP Q4H PRN PRN Reason: severe breakthrough pain Last Admin: 04/05/19 06:08 Dose: 2 mg Ondansetron HCl (Zofran Odt) 4 mg PO Q6H PRN PRN Reason: Nausea/Vomiting Ondansetron HCl (Zofran) 4 mg IVP Q6H PRN PRN Reason: Nausea/Vomiting Last Admin: 04/02/19 17:05 Dose: 4 mg Potassium Chloride (Klor-Con 10) 20 meq PO BID[facility] Last Admin: 04/05/19 10:13 Dose: 20 meq Sodium Chloride (Flush - Normal Saline) 10 ml IVF Q12HR [facility] Last Admin: 04/05/19 10:10 Dose: 10 ml Sodium Chloride (Flush - Normal Saline) 10 ml IVF PRN PRN PRN Reason: Saline Flush Vital Signs & Weight: Vital Signs Temp Pulse Resp BP BP Pulse Ox 04/05/19 11:31 98.1 F 57 L 18 97/52 L 96 04/05/19 10:14 55 L 04/05/19 08:00 97.5 F L 48 L 16 131/59 L 94 L 04/05/19 06:09 168/77 H 04/05/19 06:03 168/77 H 04/05/19 04:00 98.3 F 57 L 18 166/79 H 94 L Weight 232 lb 9.6 oz - Physical Exam General: alert & oriented x3 HEENT: mucus membranes moist Neck: supple neck Cardiac: regular rate and rhythm, S1/S2 Lungs: clear to auscultation Neuro: cranial nerve 2-12 intact Abdomen: unremarkable Musculoskeletal: normal range of motion - Labs Result Diagrams: 04/05/19 04:54 04/05/19 04:54 Troponin/CKMB Troponin I 0.109 ng/mL (< 0.028) H 03/31/19 06:23 - Telemetry Sinus rhythms and dysrhythmias: sinus rhythm - Assessment/Plan Assessment/Plan: 1. Afib with RVR - remains in SR with Flecinide 50mg BID and Metoprolol 12.5mg BID; she denied dizziness or lightheadedness with HR 50s. 2. AAA (abdominal aortic aneurysm) - plan for AAA repair 3. HTN (hypertension) - stable Metoprolol 12.5mg BID, Losartan 100mg qd and Hydralazine 75mg TID 4. COPD - stable with RA 5. non-ETOH cirrhosis - 6. Tobacco abuse - smoking cessation education given to the pt 7. MASA Bactenemia - managed by ID; on Vancomycine 8. Septic thrombophlebitis - [place] level 60s today MAR reviewed Pt. seen and eval. by me. I agree with the A/p by the PRIMARY CARE PEDIATRICIAN. Chest clear. RRR. She is feeling better. carlos
--- NOTE | 2019-04-05 16:43 | EKG ---
Test Reason : Blood Pressure : / mmHG Vent. Rate : 056 BPM Atrial Rate : 056 BPM P-R Int : 166 ms QRS Dur : 084 ms QT Int : 480 ms P-R-T Axes : -20 014 056 degrees QTc Int : 463 ms Sinus bradycardia Nonspecific ST abnormality Abnormal ECG Confirmed by CATRINA LOMELI ([id number]) on 04/05/2019 4:43:05 PM Referred By: RC Confirmed By:CATRINA LOMELI
[2019-04-05 18:07] VITALS: BMI 38.7
--- NOTE | 2019-04-05 18:26 | PDOC.HOSPP ---
- Subjective Encounter Date: 04/05/19 Encounter Time: 12:00 Subjective: Patient seen and examined for Afib with MRSA bacteremia. Feels better. Headache better. LUE swelling improving. No new complaints. No overnight events - Objective Vital Signs & Weight: Vital Signs (12 hours) Temp Pulse Pulse Pulse Pulse Resp BP 04/05/19 16:12 58 L 04/05/19 16:00 97.9 F 58 L 18 04/05/19 11:38 58 L 60 62 90/56 L 04/05/19 11:31 98.1 F 57 L 18 04/05/19 10:14 55 L 04/05/19 08:00 97.5 F L 48 L 16 BP BP BP BP Pulse Ox Pulse Ox Pulse Ox 04/05/19 16:12 04/05/19 16:00 121/60 95 04/05/19 11:38 109/56 L 119/59 L 95 96 04/05/19 11:31 97/52 L 96 04/05/19 10:14 04/05/19 08:00 131/59 L 94 L Weight Admit Weight 236 lb 12.423 oz Weight 232 lb 9.6 oz I&O: 04/04/19 04/05/19 04/06/19 06:59 06:59 06:59 Intake Total 900 2610 240 Output Total 1800 1460 Balance -900 1150 240 Result Diagrams: 04/05/19 04:54 04/05/19 04:54 EKG Reviewed by me: Yes (Tele SR) Hospitalist ROS - Review of Systems Cardiovascular: denies: chest pain, palpitations, orthopnea, paroxysmal noc. dyspnea, edema, light headedness, other Gastrointestinal: denies: nausea, vomitting, abdominal pain, diarrhea, constipation, melena, hematochezia, other - Medication Medications: Active Medications Generic Name Dose Route Start Last Admin Trade Name Freq PRN Reason Stop Dose Admin Hydrocodone Bitart/Acetaminophen 1 tab 04/01/19 17:14 04/03/19 09:57 [place] 10/325 PO 1 tab Q4H PRN Administration Moderate Pain (4-6) Hydrocodone Bitart/Acetaminophen 1 tab 04/01/19 17:14 04/03/19 20:27 [place] 5/325 PO 1 tab Q4H PRN Administration Mild Pain (1-3) Aspirin 81 mg 03/31/19 09:00 04/05/19 10:14 Ecotrin PO 81 mg DAILY [facility] Administration Clonidine 0.1 mg 04/01/19 08:05 04/05/19 06:09 Catapres PO 0.1 mg Q4H PRN Administration SBP>160 Escitalopram Oxalate 20 mg 04/01/19 09:00 04/05/19 10:13 Lexapro PO 20 mg DAILY [facility] Administration Flecainide Acetate 50 mg 04/01/19 09:00 04/05/19 10:49 Tambocor PO 50 mg Q12HR [facility] Administration Hydralazine HCl 75 mg 04/02/19 15:00 04/05/19 16:12 Apresoline PO 75 mg TID [facility] Administration Vancomycin HCl 1.5 gm/ Sodium 300 mls @ 200 mls/hr 04/05/19 10:00 04/05/19 10 :09 Chloride IVPB 300 mls 1000,2200 [facility] Administration Losartan Potassium 100 mg 04/01/19 09:00 04/05/19 10:14 Cozaar PO 100 mg DAILY [facility] Administration Metoprolol Tartrate 12.5 mg 04/01/19 21:00 04/05/19 10:49 Lopressor PO 12.5 mg BID [facility] Administration Morphine Sulfate 2 mg 04/01/19 17:15 04/05/19 06:08 Morphine SLOW IVP 2 mg Q4H PRN Administration severe breakthrough pain Ondansetron HCl 4 mg 03/31/19 08:22 04/02/19 17:05 Zofran IVP 4 mg Q6H PRN Administration Nausea/Vomiting Potassium Chloride 20 meq 04/05/19 08:00 04/05/19 16:12 Klor-Con 10 PO 20 meq BID-WM [facility] Administration Sodium Chloride 10 ml 04/01/19 21:00 04/05/19 10:10 Flush - Normal Saline IVF 10 ml Q12HR [facility] Administration - Exam General Appearance: NAD Heart: RRR, no gallops Respiratory: CTAB, no wheezes, no ronchi Gastrointestinal: soft, non-tender, normal bowel sounds Extremities: no edema Extremeties - other findings: LUE swelling/erythema improving Neurological: no new deficit Hosp A/P (1) Atrial fibrillation with RVR Code(s): I48.91 - UNSPECIFIED ATRIAL FIBRILLATION Status: Acute (2) Sepsis Code(s): A41.9 - SEPSIS, UNSPECIFIED ORGANISM Status: Acute (3) Non-alcoholic cirrhosis Status: Chronic (4) AAA (abdominal aortic aneurysm) Code(s): I71.4 - ABDOMINAL AORTIC ANEURYSM, WITHOUT RUPTURE Status: Chronic Qualifiers: Presence of rupture: without rupture Qualified Code(s): I71.4 - Abdominal aortic aneurysm, without rupture (5) HTN (hypertension) Code(s): I10 - ESSENTIAL (PRIMARY) HYPERTENSION Status: Chronic (6) Obesity (BMI 30-39.9) Code(s): E66.9 - OBESITY, UNSPECIFIED Status: Acute (7) MRSA bacteremia Code(s): R78.81 - BACTEREMIA Status: Acute (8) Septic thrombophlebitis Code(s): I80.9 - PHLEBITIS AND THROMBOPHLEBITIS OF UNSPECIFIED SITE Status: Acute - Plan Cont IV Vancomycin x 4 weeks Monitor Vancomycin trough PICC line Echo - no vegetation Wound care following Cont other meds as above AM labs SNF eval No Lovenox due to thrombocytopenia
[2019-04-06] MEDS: Metoprolol Tartrate 25 MG TAB PO SCH ×2 (08:57→20:16)
[2019-04-06] MEDS: Flecainide 50 MG TAB PO SCH ×2 (08:58→20:16)
[2019-04-06] MEDS: Escitalopram Oxalate 20 mg Tablet PO SCH (08:58)
[2019-04-06] MEDS: Losartan 25 MG TAB PO SCH (08:58)
[2019-04-06] MEDS: Potassium Chloride 10 MEQ TAB PO SCH ×2 (08:58→16:21)
[2019-04-06] MEDS: Aspirin 81 mg Enteric Coated Tablet PO SCH (08:58)
[2019-04-06] MEDS: hydrALAZINE 25 MG TAB PO SCH ×3 (08:58→20:16)
--- NOTE | 2019-04-06 09:47 | PDOC.CPN ---
- Subjective Date: 04/06/19 Time: 09:47 Interval history: The pt seen and examined. No overnight events. No cardiac complaints. - Objective Allergies/Adverse Reactions: Allergies Allergy/AdvReac Type Severity Reaction Status Date / Time Iodinated Contrast Media Allergy Verified 03/31/19 14:02 [Iodinated Contrast- Oral and IV Dye] Penicillins Allergy Verified 03/31/19 14:02 Visit Medications: Current Medications Acetaminophen (Tylenol) 325 mg PO Q6H PRN PRN Reason: Headache/Fever or Pain Hydrocodone Bitart/Acetaminophen ([place] 10/325) 1 tab PO Q4H PRN PRN Reason: Moderate Pain (4-6) Last Admin: 04/03/19 09:57 Dose: 1 tab Hydrocodone Bitart/Acetaminophen ([place] 5/325) 1 tab PO Q4H PRN PRN Reason: Mild Pain (1-3) Last Admin: 04/03/19 20:27 Dose: 1 tab Aspirin (Ecotrin) 81 mg PO DAILY [facility] Last Admin: 04/06/19 08:58 Dose: 81 mg Clonidine (Catapres) 0.1 mg PO Q4H PRN PRN Reason: SBP>160 Last Admin: 04/05/19 06:09 Dose: 0.1 mg Escitalopram Oxalate (Lexapro) 20 mg PO DAILY [facility] Last Admin: 04/06/19 08:58 Dose: 20 mg Flecainide Acetate (Tambocor) 50 mg PO Q12HR [facility] Last Admin: 04/06/19 08:58 Dose: 50 mg Hydralazine HCl (Apresoline) 75 mg PO TID [facility] Last Admin: 04/06/19 08:58 Dose: 75 mg Vancomycin HCl 1.5 gm/ Sodium (Chloride) 300 mls @ 200 mls/hr IVPB 1000,2200 [facility] Last Admin: 04/05/19 21:15 Dose: 300 mls Losartan Potassium (Cozaar) 100 mg PO DAILY [facility] Last Admin: 04/06/19 08:58 Dose: 100 mg Metoprolol Tartrate (Lopressor) 12.5 mg PO BID [facility] Miscellaneous Medication (Pharmacy To Dose) 1 each IVPB ASDIR [facility] Morphine Sulfate (Morphine) 2 mg SLOW IVP Q4H PRN PRN Reason: severe breakthrough pain Last Admin: 04/05/19 06:08 Dose: 2 mg Ondansetron HCl (Zofran Odt) 4 mg PO Q6H PRN PRN Reason: Nausea/Vomiting Ondansetron HCl (Zofran) 4 mg IVP Q6H PRN PRN Reason: Nausea/Vomiting Last Admin: 04/02/19 17:05 Dose: 4 mg Potassium Chloride (Klor-Con 10) 20 meq PO BID[facility] Last Admin: 04/06/19 08:58 Dose: 20 meq Sodium Chloride (Flush - Normal Saline) 10 ml IVF Q12HR [facility] Last Admin: 04/06/19 08:59 Dose: 10 ml Sodium Chloride (Flush - Normal Saline) 10 ml IVF PRN PRN PRN Reason: Saline Flush Vital Signs & Weight: Vital Signs Temp Pulse Resp BP BP Pulse Ox 04/06/19 08:58 54 L 04/06/19 08:00 97.3 F L 54 L 16 174/95 H 95 04/06/19 03:46 98.5 F 56 L 16 160/79 H 95 04/05/19 23:36 56 L 159/76 H Admit Weight 236 lb 12.423 oz Weight 233 lb 8 oz - Physical Exam General: alert & oriented x3 Neck: supple neck Cardiac: regular rate and rhythm, S1/S2 Lungs: clear to auscultation, decreased breath sounds Skin: clear Musculoskeletal: normal range of motion - Labs Result Diagrams: 04/05/19 04:54 04/05/19 04:54 Troponin/CKMB Troponin I 0.109 ng/mL (< 0.028) H 03/31/19 06:23 - Telemetry Sinus rhythms and dysrhythmias: sinus rhythm - Assessment/Plan Assessment/Plan: 1. Afib with RVR - remains in SR with Flecinide 50mg BID and Metoprolol 12.5mg BID; she denied dizziness or lightheadedness with HR 50s. On ASA 81mg qd 2. AAA (abdominal aortic aneurysm) - plan for AAA repair 3. HTN (hypertension) - stable Metoprolol 12.5mg BID, Losartan 100mg qd and Hydralazine 75mg TID 4. COPD - stable with RA 5. non-ETOH cirrhosis - 6. Tobacco abuse - smoking cessation education given to the pt 7. MASA Bactenemia - managed by ID; on Vancomycine 8. Septic thrombophlebitis - Platlet level 60s on 04/05/2019 MAR reviewed
--- NOTE | 2019-04-06 15:02 | SPC ---
Ultrasound and Fluoroscopic guided left upper extremity PICC placement HISTORY: Bacteremia. Patient needs long-term IV antibiotics FINDINGS: Informed consent obtained prior to the procedure. An appropriate access site was determined with ultrasound guidance. The area was then meticulously pr epped and draped in usual sterile fashion. Skin overlying the left basilic vein anesthetized with 1% buffered lidocaine. Utilizing direct sonogr aphic guidance, vascular access is obtained via the left basilic vein, and an 0.018in guidewire was advanced to the distal SVC. Intravascular length is calculated at 41 cm, and the PICC is cut accordin gly. Needle is removed and replaced with a peel-away sheath. The PICC was advanced over the wire. Wire and peel-away sheath were removed. The tip of the catheter overlies the distal SVC. The catheter was accessed and aspirated/flushed easily. Exposure data: 0.5 minutes of fluoroscopic time 4008 mGy centimeter squared FINDINGS: Technically successful placement of a 41 centimeter single lumen 5 [place] left upper extremity PICC l ine. IMPRESSION: Successful ultrasound guided placement of a left upper extremity PICC.
[2019-04-06] MEDS: Vancomycin HCl 1.5 GM in Sodium Chloride 0.9% 250 ML 300 ML IVPB SCH (15:30)
--- NOTE | 2019-04-06 21:23 | PDOC.HOSPP ---
- Subjective Encounter Date: 04/06/19 Encounter Time: 11:00 Subjective: Patient seen and examined for bacteremia. Feels the same. No fever or chills. No new complaints. No overnight events - Objective Vital Signs & Weight: Vital Signs (12 hours) Temp Pulse Pulse Pulse Resp BP BP 04/06/19 20:16 61 167/78 H 04/06/19 15:38 56 L 04/06/19 15:37 97.2 F L 56 L 16 04/06/19 11:03 52 L 56 L 120/66 04/06/19 11:01 97.3 F L 52 L 18 BP BP Pulse Ox Pulse Ox 04/06/19 20:16 04/06/19 15:38 04/06/19 15:37 161/80 H 96 04/06/19 11:03 124/69 96 04/06/19 11:01 130/70 97 Weight Admit Weight 236 lb 12.423 oz Weight 233 lb 8 oz I&O: 04/05/19 04/06/19 04/07/19 06:59 06:59 06:59 Intake Total 2610 2340 1750 Output Total 1460 500 Balance 1150 1840 1750 Result Diagrams: 04/05/19 04:54 04/05/19 04:54 EKG Reviewed by me: Yes (Tele SB) Hospitalist ROS - Review of Systems Respiratory: denies: cough, dry, shortness of breath, hemoptysis, SOB with excertion, pleuritic pain, sputum, wheezing, other Cardiovascular: denies: chest pain, palpitations, orthopnea, paroxysmal noc. dyspnea, edema, light headedness, other Gastrointestinal: denies: nausea, vomitting, abdominal pain, diarrhea, constipation, melena, hematochezia, other - Medication Medications: Active Medications Generic Name Dose Route Start Last Admin Trade Name Freq PRN Reason Stop Dose Admin Hydrocodone Bitart/Acetaminophen 1 tab 04/01/19 17:14 04/03/19 09:57 [place] 10/325 PO 1 tab Q4H PRN Administration Moderate Pain (4-6) Hydrocodone Bitart/Acetaminophen 1 tab 04/01/19 17:14 04/03/19 20:27 [place] 5/325 PO 1 tab Q4H PRN Administration Mild Pain (1-3) Aspirin 81 mg 03/31/19 09:00 04/06/19 08:58 Ecotrin PO 81 mg DAILY GARRET Administration Clonidine 0.1 mg 04/01/19 08:05 04/05/19 06:09 Catapres PO 0.1 mg Q4H PRN Administration SBP>160 Escitalopram Oxalate 20 mg 04/01/19 09:00 04/06/19 08:58 Lexapro PO 20 mg DAILY GARRET Administration Flecainide Acetate 50 mg 04/01/19 09:00 04/06/19 20:16 Tambocor PO 50 mg Q12HR G[facility] Administration Hydralazine HCl 75 mg 04/02/19 15:00 04/06/19 20:16 Apresoline PO 75 mg TID GARRET Administration Vancomycin HCl 1.5 gm/ Sodium 300 mls @ 200 mls/hr 04/05/19 10:00 04/06/19 15 :30 Chloride IVPB 300 mls 1000,2200 GARRET Administration Losartan Potassium 100 mg 04/01/19 09:00 04/06/19 08:58 Cozaar PO 100 mg DAILY G[facility] Administration Metoprolol Tartrate 12.5 mg 04/06/19 21:00 04/06/19 20:16 Lopressor PO 12.5 mg BID G[facility]RET Administration Morphine Sulfate 2 mg 04/01/19 17:15 04/05/19 06:08 Morphine SLOW IVP 2 mg Q4H PRN Administration severe breakthrough pain Ondansetron HCl 4 mg 03/31/19 08:22 04/02/19 17:05 Zofran IVP 4 mg Q6H PRN Administration Nausea/Vomiting Potassium Chloride 20 meq 04/05/19 08:00 04/06/19 16:21 Klor-Con 10 PO 20 meq BID-WM G[facility] Administration Sodium Chloride 10 ml 04/01/19 21:00 04/06/19 20:16 Flush - Normal Saline IVF 10 ml Q12HR G[facility] Administration - Exam General Appearance: NAD Neck: supple, no JVD Heart: RRR, no gallops, no rubs Respiratory: CTAB, no wheezes, no rales, no ronchi Gastrointestinal: soft, non-tender, non-distended, normal bowel sounds Extremities: no edema Hosp A/P (1) Atrial fibrillation with RVR Code(s): I48.91 - UNSPECIFIED ATRIAL FIBRILLATION Status: Acute (2) Sepsis Code(s): A41.9 - SEPSIS, UNSPECIFIED ORGANISM Status: Acute (3) Non-alcoholic cirrhosis Status: Chronic (4) AAA (abdominal aortic aneurysm) Code(s): I71.4 - ABDOMINAL AORTIC ANEURYSM, WITHOUT RUPTURE Status: Chronic Qualifiers: Presence of rupture: without rupture Qualified Code(s): I71.4 - Abdominal aortic aneurysm, without rupture (5) HTN (hypertension) Code(s): I10 - ESSENTIAL (PRIMARY) HYPERTENSION Status: Chronic (6) Obesity (BMI 30-39.9) Code(s): E66.9 - OBESITY, UNSPECIFIED Status: Acute (7) MRSA bacteremia Code(s): R78.81 - BACTEREMIA Status: Acute (8) Septic thrombophlebitis Code(s): I80.9 - PHLEBITIS AND THROMBOPHLEBITIS OF UNSPECIFIED SITE Status: Acute - Plan DVT proph w/SCDs Await outpateint IV Vancomycin setup PICC line today Monitor Vancomycin trough 2 times week as outpt Echo - no vegetation Cont Wound care Cont other meds as above Decline SNF No Lovenox due to thrombocytopenia AM labs
[2019-04-06 23:16] LABS: Vancomycin, Trough 29.9 ug/mL
[2019-04-07] MEDS: Morphine 2 MG/ML SYRINGE SLOW IVP PRN (00:01)
[2019-04-07] MEDS: Vancomycin HCl 1.5 GM in Sodium Chloride 0.9% 250 ML 300 ML IVPB SCH (00:50)
[2019-04-07] MEDS: HYDROcodone/Acetaminophen 5/325 mg Tablet PO PRN (03:19)
[2019-04-07 05:21] LABS: Hemoglobin 13.9 g/dL (12.0-16.0); Platelet Count 101 thou/uL (130-400)
[2019-04-07 05:41] LABS: Anion Gap 12 mmol/L (10-20); BUN (Urea Nitrogen) 12 mg/dL (9.8-20.1); Calc. Creatinine Clearance 90 mL/min (70-130); Carbon Dioxide 24 mmol/L (23-31); Chloride 107 mmol/L (98-107); Estimated GFR-MDRD 57; Glucose 103 mg/dL (80-115); Potassium 4.3 mmol/L (3.5-5.1); Sodium 139 mmol/L (136-145)
[2019-04-07 08:22] VITALS: TEMP 97.1
[2019-04-07] MEDS: Metoprolol Tartrate 25 MG TAB PO SCH (08:40)
[2019-04-07] MEDS: Flecainide 50 MG TAB PO SCH (08:40)
[2019-04-07] MEDS: Escitalopram Oxalate 20 mg Tablet PO SCH (08:40)
[2019-04-07] MEDS: Losartan 25 MG TAB PO SCH (08:42)
[2019-04-07] MEDS: hydrALAZINE 25 MG TAB PO SCH ×2 (08:42→15:18)
[2019-04-07] MEDS: Potassium Chloride 10 MEQ TAB PO SCH (08:42)
[2019-04-07] MEDS: Aspirin 81 mg Enteric Coated Tablet PO SCH (08:43)
[2019-04-07] MEDS ORDERED: Nicotine 14 MG PATCH TD PRN (09:56)
[2019-04-07] MEDS ORDERED: Vancomycin HCl 1.25 GM in Sodium Chloride 0.9% 250 ML 250 ML IVPB SCH (10:00)
--- NOTE | 2019-04-07 11:27 | PDOC.CPN ---
- Subjective Date: 04/07/19 Time: 11:28 Interval history: The pt seen and examined. No overnight events. No cardiac complaints. - Objective Allergies/Adverse Reactions: Allergies Allergy/AdvReac Type Severity Reaction Status Date / Time Iodinated Contrast Media Allergy Verified 03/31/19 14:02 [Iodinated Contrast- Oral and IV Dye] Penicillins Allergy Verified 03/31/19 14:02 Visit Medications: Current Medications Acetaminophen (Tylenol) 325 mg PO Q6H PRN PRN Reason: Headache/Fever or Pain Hydrocodone Bitart/Acetaminophen ([place] 10/325) 1 tab PO Q4H PRN PRN Reason: Moderate Pain (4-6) Last Admin: 04/03/19 09:57 Dose: 1 tab Hydrocodone Bitart/Acetaminophen ([place] 5/325) 1 tab PO Q4H PRN PRN Reason: Mild Pain (1-3) Last Admin: 04/07/19 03:19 Dose: 1 tab Aspirin (Ecotrin) 81 mg PO DAILY [facility] Last Admin: 04/07/19 08:43 Dose: 81 mg Clonidine (Catapres) 0.1 mg PO Q4H PRN PRN Reason: SBP>160 Last Admin: 04/05/19 06:09 Dose: 0.1 mg Escitalopram Oxalate (Lexapro) 20 mg PO DAILY [facility] Last Admin: 04/07/19 08:40 Dose: 20 mg Flecainide Acetate (Tambocor) 50 mg PO Q12HR [facility] Last Admin: 04/07/19 08:40 Dose: 50 mg Hydralazine HCl (Apresoline) 75 mg PO TID [facility] Last Admin: 04/07/19 08:42 Dose: 75 mg Vancomycin HCl 1.25 gm/ Sodium (Chloride) 250 mls @ 166.667 mls/hr IVPB 1000, 2200 [facility] Last Admin: 04/07/19 11:20 Dose: 250 mls Losartan Potassium (Cozaar) 100 mg PO DAILY [facility] Last Admin: 04/07/19 08:42 Dose: 100 mg Metoprolol Tartrate (Lopressor) 12.5 mg PO BID [facility] Last Admin: 04/07/19 08:40 Dose: 12.5 mg Miscellaneous Medication (Pharmacy To Dose) 1 each IVPB ASDIR [facility] Morphine Sulfate (Morphine) 2 mg SLOW IVP Q4H PRN PRN Reason: severe breakthrough pain Last Admin: 04/07/19 00:01 Dose: 2 mg Nicotine (Nicoderm Patch) 14 mg TD Q24HR PRN PRN Reason: Smoking craving Ondansetron HCl (Zofran Odt) 4 mg PO Q6H PRN PRN Reason: Nausea/Vomiting Ondansetron HCl (Zofran) 4 mg IVP Q6H PRN PRN Reason: Nausea/Vomiting Last Admin: 04/02/19 17:05 Dose: 4 mg Potassium Chloride (Klor-Con 10) 20 meq PO BID-WM [facility] Last Admin: 04/07/19 08:42 Dose: 20 meq Sodium Chloride (Flush - Normal Saline) 10 ml IVF Q12HR [facility] Last Admin: 04/07/19 08:43 Dose: 10 ml Sodium Chloride (Flush - Normal Saline) 10 ml IVF PRN PRN PRN Reason: Saline Flush Vital Signs & Weight: Vital Signs Temp Pulse Resp BP BP Pulse Ox 04/07/19 08:42 52 L 04/07/19 08:00 97.1 F L 52 L 20 134/84 95 04/07/19 04:00 57 L 18 178/95 H 97 04/07/19 00:00 57 L 18 148/78 H 95 Admit Weight 236 lb 12.423 oz Weight 232 lb 9.6 oz - Physical Exam General: alert & oriented x3 Neck: supple neck Cardiac: regular rate and rhythm, S1/S2 Lungs: clear to auscultation Musculoskeletal: normal range of motion - Labs Result Diagrams: 04/07/19 05:02 04/07/19 05:02 Troponin/CKMB Troponin I 0.109 ng/mL (< 0.028) H 03/31/19 06:23 - Telemetry Sinus rhythms and dysrhythmias: sinus rhythm (SR with HR 50s) - Assessment/Plan Assessment/Plan: 1. Afib with RVR - remains in SR with Flecinide 50mg BID and Metoprolol 12.5mg BID; she denied dizziness or lightheadedness with HR 50s. On ASA 81mg qd 2. AAA (abdominal aortic aneurysm) - plan for AAA repair 3. HTN (hypertension) - stable with Metoprolol 12.5mg BID, Losartan 100mg qd and Hydralazine 75mg TID 4. COPD - stable with RA 5. non-ETOH cirrhosis - 6. Tobacco abuse - smoking cessation education given to the pt 7. MASA Bactenemia - managed by ID 8. Septic thrombophlebitis - Platlet level 101 on 04/07/2019 MAR reviewed Pt. seen and eval. by me. 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 She denies cardiac complaints. Chest clear. RRR. Abd. soft. Left arm cellulitis. Await timing of AAA repair.
[2019-04-07 15:24] VITALS: BP 141/72
--- NOTE | 2019-04-08 07:59 | DIS ---
DATE OF ADMISSION: 03/31/2019 DATE OF DISCHARGE: 04/07/2019 DISCHARGE DISPOSITION: Home with [facility]. FOLLOWUP VISITS: 1. Follow up with Cardiology, Dr. Barnhart in 1 to 2 weeks. 2. Follow up with Infectious Disease, Dr. Ruffin in 2 weeks. 3. Follow up with primary care physician at [facility] in 1 week. ALLERGIES: THE PATIENT IS ALLERGIC TO PENICILLIN AND IODINE. THE PATIENT WAS SEEN AND EXAMINED ON THE DAY OF DISCHARGE. DENIES ANY NEW COMPLAINTS. NO CHEST PAIN, SHORTNESS OF BREATH, OR PALPITATIONS. VITAL SIGNS ON THE DAY OF DISCHARGE SHOWED TEMPERATURE 97.1, PULSE OF 60, BLOOD PRESSURE OF 141/72, WITH O2 SATURATION 97% ON ROOM AIR. DIAGNOSTIC TESTS: Platelets at discharge are 101. Lowest platelet was 57. Potassium 3.1, at discharge 4.3. Creatinine 1.20, maximum, at discharge 0.97. Blood culture 2 of 2 showed MRSA. Repeat blood cultures two days later was negative. Respiratory viral panel was negative. Echocardiogram on 04 April 2019 showed ejection fraction 60% to 65% with mild mitral regurgitation and mild tricuspid regurgitation. CT dissection protocol on 31 March 2019 showed abdominal aortic aneurysm measuring up to 4.6 cm. INPATIENT CONSULTANTS: 1. Infectious Disease, Dr. Ruffin. 2. Cardiology, Dr. Barnhart. 3. Electrophysiology, Dr. Marr. 4. Cardiovascular, Dr. Esparza. BRIEF HOSPITAL COURSE: The patient is a 68-year-old female with hypertension, aortic aneurysm, atrial fibrillation, non-alcoholic cirrhosis, and CKD, presented to the hospital with chest discomfort on 31 March 2019. A workup was consistent with atrial fibrillation with rapid ventricular response. After Cardizem IV bolus, she converted to sinus rhythm and became bradycardic. She was evaluated by Cardiology, Dr. Barnhart as well as Electrophysiology Dr. Marr. The patient was started on flecainide. She remained in sinus rhythm. She will also continue metoprolol. Anticoagulation was not started due to thrombocytopenia. She was advised to follow up with Dr. Marr as outpatient for possible ablation. On 02 April 2019, the patient had sudden onset of high-grade fever up to 102.4 degree Fahrenheit. Blood cultures came back positive for MRSA. Respiratory viral panel was negative at that time. Later, she developed swelling in the left arm around the IV site. Dr. Ruffin suspected septic thrombophlebitis as a cause of MRSA bacteremia. She had PICC line placed. She will continue vancomycin for 4 weeks. She will require vancomycin trough twice a week. Also CBC, CMP, and CRP every weekly. Plan of care was discussed with the patient in detail. She stated understanding. FINAL DIAGNOSES: 1. Atrial fibrillation with rapid ventricular response. The patient remained in sinus rhythm with flecainide. Not a candidate for anticoagulation due to thrombocytopenia. 2. Abdominal aortic aneurysm. The patient will follow up with Dr. Esparza as outpatient for repair. 3. Methicillin-resistant Staphylococcus aureus bacteremia secondary to septic thrombophlebitis. The patient will continue IV vancomycin as outpatient. 4. Non-alcoholic cirrhosis. 5. Chronic obstructive pulmonary disease. 6. Hypertension. 7. Tobacco abuse. The patient was counseled. 8. Obesity with a BMI of 38.7. 9. Chronic kidney disease, stage 3 with mild acute kidney injury. 10. Hypokalemia. 11. Hypoalbuminemia secondary to cirrhosis. 12. Elevated troponin secondary to demand ischemia/type 2 myocardial infarction. 13. Mild leukopenia. 14. Generalized weakness, multifactorial. TIME SPENT: Total time in coordinating the discharge of this patient was 33 minutes. Job ID: [id number]
--- NOTE | 2019-04-09 07:35 | PQF ---
[employer] Crystal Reports Winform ViewerPAULA AL CELINA ALTAMIRANO MD [id number] [facility]258 [id number] CLINICAL DOCUMENTATION CLARIFICATION FORM: POST DISCHARGE Addendum to original discharge summary date: ____ Late entry note date: __ DATE: 04/09/2019 ATTN: CELINA ALTAMIRANO MD Please exercise your independent, professional judgment in responding to the clarification form. Clinical indicators are provided on the bottom of this form for your review Please check appropriate box(s) to clarify if the following diagnosis has been ruled in or ruled out: Type 2 Myocardial infarction [ x] Ruled in diagnosis [ ] Continue to treat [ x ] Resolved [ ] Ruled out diagnosis [ ] Cannot rule out diagnosis [ ] Other diagnosis [ ] Unable to determine For continuity of documentation, please document condition throughout progress notes and discharge summary. Thank You. CLINICAL INDICATORS - SIGNS / SYMPTOMS / LABS - Elevated troponin sec to demand ischemia/type 2 myocardial infarction- DS, , CELINA ALTAMIRANO MD - Echo: EF 60% to 65% with mild mitral regurgitaion and mild tricuspid regurgitation- DS, 04/07, CELINA ALTAMIRANO MD - Anticoagulation not started due to thrombocytopenia-DS, 04/07, CELINA ALTAMIRANO MD - suspected septic thrombophelebitis-DS, 04/07, CELINA ALTAMIRANO MD - mild CAD with plawue formation of the left anterior desending artery- - NSTEMI type 2, most likely due to demand ischemia associated with the tachycardia with atrial fibrillation-DS, 04/07, CELINA ALTAMIRANO MD RISK FACTORS -Atrial fibrillation with RVR-DS, 04/07, CELINA ALTAMIRANO MD -Abdominal aortic aneurysm-DS, 04/07, CELINA ALTAMIRANO MD TREATMENTS -Aspirin.PO-SEP, 02/28 [employer] Crystal Reports Winform Viewer(This form is maintained as a part of the permanent medical record) 2014 [employer]. All Rights Reserved Ted Leigh [not provided] [not provided] ÓSCAR
== END 2019-04-07 17:23 | disposition home health service (06) | DRG 280 ==
LOC: ERS 00:02 → ERHOLD 02:00 → 2NO 13:33
PROVIDERS: ADMIT Hospitalist; ATTEND Hospitalist
PROC: 02HV33Z Insertion of Infusion Device into Superior Vena Cava, Percutaneous Approach (ICD-10-PCS; principal; 2019-04-06)
PROC: B548ZZA Ultrasonography of Superior Vena Cava, Guidance (ICD-10-PCS; 2019-04-06)
PROC: B5181ZA Fluoroscopy of Superior Vena Cava using Low Osmolar Contrast, Guidance (ICD-10-PCS; 2019-04-06)
DX: I48.0 Paroxysmal atrial fibrillation (principal); A41.9 Sepsis, unspecified organism; I21.A1 Myocardial infarction type 2; I12.0 Hypertensive chronic kidney disease with stage 5 chronic kidney disease or end stage renal disease; N17.9 Acute kidney failure, unspecified; I71.4 Abdominal aortic aneurysm, without rupture; K74.60 Unspecified cirrhosis of liver; I80.9 Phlebitis and thrombophlebitis of unspecified site; B95.62 Methicillin resistant Staphylococcus aureus infection as the cause of diseases classified elsewhere; E88.09 Other disorders of plasma-protein metabolism, not elsewhere classified; N18.3 Chronic kidney disease, stage 3 (moderate); J44.9 Chronic obstructive pulmonary disease, unspecified; F32.9 Major depressive disorder, single episode, unspecified; E87.6 Hypokalemia; D72.819 Decreased white blood cell count, unspecified; F41.9 Anxiety disorder, unspecified; E66.9 Obesity, unspecified; Z68.38 Body mass index [BMI] 38.0-38.9, adult; Z88.0 Allergy status to penicillin; Z79.01 Long term (current) use of anticoagulants; Z88.8 Allergy status to other drugs, medicaments and biological substances; Z90.710 Acquired absence of both cervix and uterus; Z90.49 Acquired absence of other specified parts of digestive tract; Z98.51 Tubal ligation status; Z91.041 Radiographic dye allergy status
CPT/HCPCS: 36415; 36569; 71045; 71046; 80048; 80053; 80202; 81001; 83690; 83735; 84100; 84484; 85014; 85018; 85025; 85049; 85610; 86140; 87040; 87077; 87086; 87149; 87186; 87633; 93005; 93010; 93306; 96361; 96365; 96372; C1751; J0696; J1200; J1644; J1650; J2270; J2405; J2930; J3370; J3475; J3480; J3490; J7050; Q9966; S0028

== ENCOUNTER 2019-05-21 10:30 | Inpatient (IN) | payer MEDICARE ==
[2019-05-21 11:55] LABS: Anion Gap 14 mmol/L (10-20); BUN (Urea Nitrogen) 15 mg/dL (9.8-20.1); Calc. Creatinine Clearance 0 mL/min (70-130); Calcium 9.5 mg/dL (7.8-10.44); Carbon Dioxide 23 mmol/L (23-31); Chloride 105 mmol/L (98-107); Estimated GFR-MDRD 42; Glucose 92 mg/dL (80-115); Potassium 3.7 mmol/L (3.5-5.1); Sodium 138 mmol/L (136-145)
[2019-05-24] MEDS ORDERED: Heparin 5,000 UNITS/ML VIAL ONE ×2 (06:32→16:13)
[2019-05-24] MEDS ORDERED: Heparin 10,000 UNITS/1 ML VIAL ONE ×3 (06:32→09:19)
[2019-05-24] MEDS ORDERED: Protamine Sulfate 50 MG/5 ML VIAL ONE ×2 (06:34→09:44)
[2019-05-24] MEDS ORDERED: Fentanyl 250 MCG/5 ML VIAL ONE (06:49)
[2019-05-24] MEDS ORDERED: Clindamycin/D5W 900 mg/50 ml Premix Bag ONE ×2 (06:52→13:48)
[2019-05-24 07:02] LABS: Prothrombin Time 13.1 SEC (12.0-14.7)
[2019-05-24] MEDS ORDERED: Midazolam HCl 2 mg/2 ml Vial ONE (07:04)
[2019-05-24 07:18] LABS: ALT (SGPT) 29 U/L (8-55); AST (SGOT) 33 U/L (5-34); Albumin 4.2 g/dL (3.4-4.8); Alkaline Phosphatase 117 U/L (40-110); Bilirubin, Direct 0.2 mg/dL (0.1-0.3); Bilirubin, Total 0.6 mg/dL (0.2-1.2); Protein, Total 7.6 g/dL (6.0-8.3)
[2019-05-24] MEDS ORDERED: hydrALAZINE 20 MG/ML VIAL SLOW IVP PRN (10:14)
[2019-05-24] MEDS ORDERED: Fentanyl 100 MCG/2 ML VIAL SLOW IVP PRN (10:14)
[2019-05-24] MEDS ORDERED: Phenylephrine 10 MG/NS 250 ML 250 ML IVPB PRN (10:14)
[2019-05-24] MEDS ORDERED: Nitroglycerin 50 MG/250 ML BOT 250 ML IVPB PRN (10:14)
[2019-05-24] MEDS ORDERED: Acetaminophen 325 MG TAB PO PRN (10:14)
[2019-05-24] MEDS ORDERED: Promethazine HCl 25 MG/ML VIAL IM PRN (10:14)
[2019-05-24] MEDS ORDERED: Ondansetron PF 4 MG/2 ML Vial IVP PRN (10:14)
[2019-05-24] MEDS ORDERED: PREDNISONE PO SCH (10:15)
[2019-05-24] MEDS ORDERED: [UNRECOGNIZED DRUG - OTHER] PO SCH (10:15)
[2019-05-24] MEDS ORDERED: Fentanyl 100 MCG/2 ML VIAL ONE ×3 (10:33→11:50)
--- NOTE | 2019-05-24 12:51 | OP ---
DATE OF PROCEDURE: 05/24/2019 PREOPERATIVE DIAGNOSIS: Abdominal aortic aneurysm. POSTOPERATIVE DIAGNOSIS: Abdominal aortic aneurysm. PROCEDURES PERFORMED: 1. Ultrasound-guided bilateral arterial access. 2. Bilateral pre-close technique for large arterial sheath with crossed ProGlide. 3. Endovascular aneurysm repair with a: 28 x 16 x 166 bifurcated Endurant II system left main body access 28 x 28 x 5 aortic proximal extension. 16 x 16 x 124 left iliac extension. 16 x 20 x 156 right iliac extension. SHINGLE GRADER SURGEON: Gonsalo Satnoro MD. ANESTHESIA: General endotracheal. ANESTHESIOLOGIST: Charlie Gray MD ESTIMATED BLOOD LOSS: Less than 100. FLUORO TIME: 24 minutes 59 seconds. CONTRAST TOTAL: 165 mL. DESCRIPTION OF PROCEDURE: After consent was obtained, the patient was brought into the operating room, placed in supine position on the operating room table. Appropriate central line and monitors were placed and general endotracheal anesthesia was induced. Groins were prepped and draped in usual sterile fashion. Using ultrasound guidance, percutaneous access to the bilateral common femoral arteries was obtained. Bentson guidewire and 6-Grenadian sheath were placed. Over the Bentson guidewire, crossed ProGlide was placed in a pre-close technique bilaterally. Sheaths were upsized to an 11-Grenadian bilaterally. On the right, Lunderquist wire was placed into the upper abdominal aorta and a 12-Grenadian sheath placed within the abdominal aortic aneurysm. The pigtail catheter was then passed in the upper abdominal aorta through the right sheath. On the left, Lunderquist wire was passed over a Weaver catheter. The aortogram was performed, isolating the renal arteries. A 28 x 16 x 166 graft was selected. This was passed over the Lunderquist wire through the left groin and positioned just below the right renal artery. The graft was crown seated. The graft was deployed all the way down to the bifurcation. The pigtail catheter was withdrawn and used to access the short limb of the bifurcation graft. Once the limb was accessed, the catheter was pulled within the proximal portion of the graft and twirled easily. Lunderquist wire was replaced. Hand-injected arteriogram was performed through the sheath and a 16 x 20 x 156 right iliac extension was selected and deployed. On the left, hand-injected arteriogram was performed in the left iliac artery. A 16 x 16 x 124 left iliac extension was selected and deployed. Balloon angioplasty was performed with Reliant balloons for the full length of the graft bilaterally. Followup angiogram showed we had a type 1 endoleak at the proximal anastomosis. We selected a 28 x 28 x 5 extension. This extension was passed proximally. Magnified angled views were used to isolate the renal arteries and the Lunderquist wire withdrawn back into the catheter itself. Once the graft was positioned and deployed, this was also seated with a Reliant balloon. Followup angiogram showed no further endoleak. The catheters were then withdrawn over Bentson guidewires and the ProGlide was used to close the femoral arteries. Good hemostasis was obtained. Bentson guidewires were removed. The ProGlide was tightened for their final tighten and cut. 100 mg of protamine was administered. The patient had been given 12,500 units of heparin at the beginning of the case. The patient tolerated the procedure well, was awakened, extubated , and transferred to recovery room in stable condition. Job ID: [id number] MTDD
[2019-05-24] MEDS ORDERED: diphenhydrAMINE 25 MG CAP ONE (13:41)
[2019-05-24] MEDS: diphenhydrAMINE 25 MG CAP PO SCH (13:46)
[2019-05-24] MEDS: Clindamycin/D5W 900 MG in Premix Bag 1 BAG IVPB SCH ×2 (13:50→19:04)
[2019-05-24] MEDS ORDERED: predniSONE 20 MG TAB PO SCH (14:00)
[2019-05-24 14:39] VITALS: BMI 36.9
[2019-05-24] MEDS: Sodium Chloride 0.9% 1,000 ML IV SCH ×2 (15:15→19:03)
--- NOTE | 2019-05-24 15:44 | EKG ---
Test Reason : PREOP Blood Pressure : / mmHG Vent. Rate : 054 BPM Atrial Rate : 054 BPM P-R Int : 186 ms QRS Dur : 098 ms QT Int : 476 ms P-R-T Axes : 022 022 073 degrees QTc Int : 451 ms Sinus bradycardia Nonspecific ST abnormality Abnormal ECG Confirmed by CATRINA LOMELI ([id number]) on 05/24/2019 3:43:53 PM Referred By: Laurel BRUSH Confirmed By:CATRINA LOMELI
[2019-05-24] MEDS ORDERED: Glycopyrrolate 0.2 MG/ML 5 ML SYRINGE ONE (16:13)
[2019-05-24] MEDS ORDERED: PROPOFOL 200 MG/20 ML VIAL ONE (16:13)
[2019-05-24] MEDS ORDERED: Heparin 10,000 UNITS/ 10 ML VIAL ONE (16:13)
[2019-05-24] MEDS ORDERED: Ondansetron PF 4 MG/2 ML Vial ONE (16:13)
[2019-05-24] MEDS ORDERED: Dexamethasone 20 MG/5 ML VIAL ONE (16:13)
[2019-05-24] MEDS ORDERED: PHENYLEPHRINE-NS 100 MCG/ML 10 ML SYRINGE ONE (16:13)
[2019-05-24] MEDS ORDERED: Rocuronium Bromide 10 MG/ML (10ML VIAL) ONE (16:13)
[2019-05-24] MEDS ORDERED: ePHEDrine 50 MG/ML VIAL ONE (16:13)
[2019-05-24] MEDS ORDERED: Lidocaine 1% PF 5 ML VIAL ONE (16:13)
[2019-05-24] MEDS: Flecainide 50 MG TAB PO SCH (20:14)
[2019-05-24] MEDS: cloNIDine 0.1 MG TAB PO SCH (20:15)
[2019-05-24] MEDS: traMADol HCl 50 MG TAB PO PRN (20:16)
[2019-05-24] MEDS: hydrALAZINE 25 MG TAB PO SCH (20:18)
[2019-05-24] MEDS: Metoprolol Tartrate 25 MG TAB PO SCH (20:19)
[2019-05-24] MEDS ORDERED: Losartan 25 MG TAB PO SCH (21:00)
[2019-05-25] MEDS: diphenhydrAMINE 25 MG CAP PO SCH (00:05)
[2019-05-25] MEDS: traMADol HCl 50 MG TAB PO PRN (00:05)
[2019-05-25] MEDS: Clindamycin/D5W 900 MG in Premix Bag 1 BAG IVPB SCH ×2 (00:06→06:05)
[2019-05-25 05:41] LABS: Anion Gap 11 mmol/L (10-20); BUN (Urea Nitrogen) 19 mg/dL (9.8-20.1); Calc. Creatinine Clearance 74 mL/min (70-130); Calcium 8.3 mg/dL (7.8-10.44); Carbon Dioxide 23 mmol/L (23-31); Chloride 109 mmol/L (98-107); Estimated GFR-MDRD 46; Glucose 112 mg/dL (80-115); Potassium 3.8 mmol/L (3.5-5.1); Sodium 139 mmol/L (136-145)
[2019-05-25 06:18] LABS: #Lymphocytes 1.5 thou/uL (1.20-3.40); #Monocytes 1.5 thou/uL (0.11-0.59); #Neutrophils 11.7 thou/uL (1.40-6.50); %Eosinophils 0.1 % (0.0-10.0); %Lymphocytes 10.3 % (21.0-51.0); %Monocytes 9.9 % (0.0-10.0); %Neutrophils 79.6 % (42.0-75.0); Hemoglobin 11.5 g/dL (12.0-16.0); Mean Corpuscular HGB CONC 31.5 g/dL (32.0-36.0); Mean Corpuscular Hemoglobin 31.2 pg (27.0-31.0); Mean Platelet Volume 7.5 fL (7.4-10.4); Platelet Count 101 thou/uL (130-400); Platelet Morphology Comment Appears Decreased; RBC Distribution Width 13.4 % (11.5-14.5); Red Blood Cell (RBC) Count 3.68 mill/uL (4.20-5.40); White Blood Cell (WBC) Count 14.7 thou/uL (4.8-10.8)
--- NOTE | 2019-05-25 06:32 | DIS ---
DATE OF ADMISSION: 05/24/2019 DATE OF DISCHARGE: 05/25/2019 DIAGNOSIS: Abdominal aortic aneurysm. PROCEDURE: Endovascular repair of abdominal aortic aneurysm with a Medtronic II endovascular stent grafting system. DESCRIPTION OF HOSPITAL STAY: Ms. Kaiser was brought in for elective aneurysm repair. She has done well postoperatively and being discharged to home. Medications are unchanged. Job ID: [id number]
[2019-05-25] MEDS ORDERED: Aspirin 81 mg Enteric Coated Tablet PO SCH (09:00)
[2019-05-25] MEDS ORDERED: FLU VACC TS2019-20(65YR UP)/PF 180 MCG/0.5 ML SYRINGE IM ONE (09:00)
[2019-05-25] MEDS ORDERED: Escitalopram Oxalate 20 mg Tablet PO SCH (09:00)
[2019-05-25] MEDS: Flecainide 50 MG TAB PO SCH (10:02)
[2019-05-25] MEDS: cloNIDine 0.1 MG TAB PO SCH (10:02)
[2019-05-25] MEDS: Sodium Chloride 0.9% 1,000 ML IV SCH (10:02)
[2019-05-25] MEDS: hydrALAZINE 25 MG TAB PO SCH (10:03)
[2019-05-25 10:06] VITALS: BP 135/62
[2019-05-25] MEDS: Metoprolol Tartrate 25 MG TAB PO SCH (10:12)
[2019-05-25 10:55] LABS: Actual Bicarbonate (HCO3a) 21.6 mEq/L (22-28); Analyzer IN Cardio OR; Base Excess (BEa) -3.7 mEq/L (-2.0 to +3.0); CO2 Tension 40.1 mmHg (35.0-45.0); Calcium, Ionized 1.15 mmol/L (1.12-1.30); Hemoglobin (Hb) 12.8 g/dL (12.0-16.0); O2 Tension (PaO2) 444.6 mmHg (> 70.0); Potassium - ABG Lab 3.89 mmol/L (3.70-5.30); pH, Arterial 7.35 (7.35-7.45)
[2019-05-25 10:56] LABS: Puncture Site ALINE
[2019-05-25 10:56] LABS: Actual Bicarbonate (HCO3a) 23.1 mEq/L (22-28); Analyzer IN Cardio OR; Base Excess (BEa) -1.9 mEq/L (-2.0 to +3.0); CO2 Tension 40.4 mmHg (35.0-45.0); Calcium, Ionized 1.15 mmol/L (1.12-1.30); Carboxyhemoglobin (COHb) 1.3 gm% (0.0-3.0); Hemoglobin (Hb) 13.2 g/dL (12.0-16.0); O2 Tension (PaO2) 465.8 mmHg (> 70.0); Potassium - ABG Lab 3.67 mmol/L (3.70-5.30); Puncture Site ALINE; pH, Arterial 7.38 (7.35-7.45)
[2019-05-25 12:05] VITALS: TEMP 98.1
== END 2019-05-25 13:13 | disposition home or self-care (01) | DRG 269 ==
LOC: SURG A 05-24 05:40 → CCU 05-24 15:14
PROVIDERS: ADMIT Thoracic Surgery (Cardiothoracic Vascular Surgery); ATTEND Thoracic Surgery (Cardiothoracic Vascular Surgery)
PROC: 04V03EZ Restriction of Abdominal Aorta with Branched or Fenestrated Intraluminal Device, One or Two Arteries, Percutaneous Approach (ICD-10-PCS; principal; 2019-05-24)
PROC: B4101ZZ Fluoroscopy of Abdominal Aorta using Low Osmolar Contrast (ICD-10-PCS; 2019-05-24)
PROC: 04VD3DZ Restriction of Left Common Iliac Artery with Intraluminal Device, Percutaneous Approach (ICD-10-PCS; 2019-05-24)
PROC: 04VC3DZ Restriction of Right Common Iliac Artery with Intraluminal Device, Percutaneous Approach (ICD-10-PCS; 2019-05-24)
DX: I71.4 Abdominal aortic aneurysm, without rupture (principal); I10 Essential (primary) hypertension; J44.9 Chronic obstructive pulmonary disease, unspecified; F17.200 Nicotine dependence, unspecified, uncomplicated; E66.3 Overweight; I48.0 Paroxysmal atrial fibrillation; Z90.49 Acquired absence of other specified parts of digestive tract; Z90.710 Acquired absence of both cervix and uterus; Z90.89 Acquired absence of other organs; Z79.82 Long term (current) use of aspirin; Z88.0 Allergy status to penicillin; Z68.37 Body mass index [BMI] 37.0-37.9, adult
CPT/HCPCS: 36416; 76000; 80048; 80076; 82805; 85025; 85027; 85610; 85730; 86850; 86900; 86901; 93005; 93010; C1726; C1760; C1769; C1894; J0360; J1642; J1644; J2250; J2720; J3010; J3490; J7620; Q0163

== ENCOUNTER 2019-05-26 10:54 | Emergency (ER) | payer MEDICARE ==
[2019-05-26] MEDS ORDERED: Ondansetron PF 4 MG/2 ML Vial ONE (11:26)
[2019-05-26] MEDS ORDERED: Morphine 4 MG/ML VIAL ONE (11:26)
[2019-05-26 11:53] LABS: INR-International Normal Ratio 1.1; PTT 27.4 SEC (22.9-36.1); Prothrombin Time 14.1 SEC (12.0-14.7)
--- NOTE | 2019-05-26 12:05 | CT ---
Exam: Abdomen and pelvic CT scan without IV contrast: HISTORY: Abdominal pain. Prior abdominal aortic aneurysm repair on Friday. FINDINGS: Linear parenchymal changes noted in the lower lobes bilaterally evidence for some subsegmental atelec tasis. Trace amount of intraperitoneal fluid. Evidence for some contrast density within the gallbladder. No evidence for acute cholecystitis. Extensive mid and lower lumbar spine surgery with s evere artifact. Aortic bilateral iliac endograft. 0.6 x 1.6 cm focus of air within the excluded aneurysm sac seen best on image 44 of 104 on the axial images. This is presumed to be postoperative. No evidence for an aneurysm leak on this noncontrast study. Air noted within the urinary bladder presumably from recent catheterization. No evidence for abscess. IMPRESSION: Status post aortobiiliac endo stent. Small air density within the anterior aspect of excluded aneurysm sac. Presumably this is postoperati ve. Extensive postop changes of the lumbar spine. Other findings as above. Findings were discussed with Dr. Martinez in the emergency room at 11:58 AM CODE CR
[2019-05-26 12:09] LABS: ALT (SGPT) 17 U/L (8-55); AST (SGOT) 25 U/L (5-34); Albumin 3.2 g/dL (3.4-4.8); Alkaline Phosphatase 90 U/L (40-110); Anion Gap 10 mmol/L (10-20); BUN (Urea Nitrogen) 17 mg/dL (9.8-20.1); CK (CPK) 177 U/L (29-168); Calc. Creatinine Clearance 0 mL/min (70-130); Calcium 8.2 mg/dL (7.8-10.44); Carbon Dioxide 23 mmol/L (23-31); Chloride 106 mmol/L (98-107); Estimated GFR-MDRD 42; Globulin 2.6 g/dL (2.4-3.5); Glucose 101 mg/dL (80-115); Lipase 26 U/L (8-78); Potassium 3.4 mmol/L (3.5-5.1); Protein, Total 5.8 g/dL (6.0-8.3); Sodium 136 mmol/L (136-145)
[2019-05-26 12:13] LABS: Hemoglobin 12.6 g/dL (12.0-16.0); Mean Corpuscular HGB CONC 33.8 g/dL (32.0-36.0); Mean Corpuscular Hemoglobin 33.1 pg (27.0-31.0); Mean Platelet Volume 7.9 fL (7.4-10.4); Platelet Count 95 thou/uL (130-400); RBC Distribution Width 13.4 % (11.5-14.5); Red Blood Cell (RBC) Count 3.82 mill/uL (4.20-5.40); White Blood Cell (WBC) Count 11.7 thou/uL (4.8-10.8)
[2019-05-26 12:25] LABS: Band 5 % (5-11); Eosinophils 2 % (0-10); Lymphocytes 22 % (21-51); MDiff Complete? YES; Monocytes 14 % (0-10); Neutrophil 54 % (42-75); Platelet Morphology Comment Appears Decreased; Polychromasia SLIGHT = 2-3 cells (100X) (0-2/hpf); Reactive Lymphocytes 3 % (0-10)
--- NOTE | 2019-05-26 17:19 | CON ---
DATE OF CONSULTATION: Ms. Villalobos had an endovascular repair of abdominal aortic aneurysm on 05/24. She had percutaneous access. She was discharged on 05/25. She returned to the emergency department today with complaint of abdominal pain. She had abdominal pain postoperatively, that was only controlled with narcotic pain medication. She has had no hemodynamic problems at home. She has had no claudication. She has had no fever. She was seen by Dr. Martinez in the ER, and had a CT of the abdomen performed, which showed a well-positioned infrarenal abdominal aortic stent graft. There were no changes in the appearance of her aneurysm, the patient did not have contrast due to her contrast allergy. When I arrived, she was asleep. I woke her up and she said she was still having abdominal pain. When distracted and palpating her abdomen, she did not hurt, but when I asked her about palpation of her abdomen, the lower quadrants bilaterally were bothering her. She has not had a bowel movement since admission. She has palpable pedal pulses bilaterally. The percutaneous access sites are flat and there is no hematoma noted on CT of the abdomen and pelvis. Her hemoglobin and white count are normal. Her creatinine is 1.2. I reassured her that she has nothing catastrophic going on in her abdomen at this point. I would not recommend any further pain medication or antibiotics in her situation. I encouraged her to get around and walk and to have a bowel movement as she has not had one in about 4 days. Hopefully, this will begin to help her feel better. Job ID: [id number]
== END 2019-05-26 13:15 | disposition home or self-care (01) ==
LOC: ERS 10:54
DX: G89.18 Other acute postprocedural pain (principal); R10.9 Unspecified abdominal pain; I10 Essential (primary) hypertension; Z79.899 Other long term (current) drug therapy
CPT/HCPCS: 74176; 80053; 82550; 83690; 83880; 84484; 85025; 85610; 85730; 93005; 96361; 96374; 96375; J2270; J2405

== ENCOUNTER 2019-06-01 12:59 | Emergency (ER) | payer MEDICARE ==
[2019-06-01] MEDS ORDERED: Morphine 4 MG/ML VIAL ONE (13:39)
[2019-06-01] MEDS ORDERED: Ondansetron PF 4 MG/2 ML Vial ONE (13:39)
== END 2019-06-01 16:21 | disposition home or self-care (01) ==
LOC: ERS 12:59
DX: R10.9 Unspecified abdominal pain (principal); R10.811 Right upper quadrant abdominal tenderness; I10 Essential (primary) hypertension; K74.60 Unspecified cirrhosis of liver; I48.91 Unspecified atrial fibrillation; L40.9 Psoriasis, unspecified; J45.909 Unspecified asthma, uncomplicated; F32.9 Major depressive disorder, single episode, unspecified; F17.210 Nicotine dependence, cigarettes, uncomplicated; E66.9 Obesity, unspecified; D66 Hereditary factor VIII deficiency; Z79.82 Long term (current) use of aspirin; Z79.899 Other long term (current) drug therapy
CPT/HCPCS: 96374; 96375; J2270; J2405

== ENCOUNTER 2019-06-03 15:04 | Inpatient (IN) | payer MEDICARE ==
[2019-06-03 16:04] LABS: #Basophils 0.1 thou/uL (0.0-0.2); #Eosinphils 0.2 thou/uL (0.0-0.7); #Lymphocytes 2.1 thou/uL (1.20-3.40); #Neutrophils 11.4 thou/uL (1.40-6.50); %Basophils 0.4 % (0.0-1.0); %Eosinophils 1.5 % (0.0-10.0); %Lymphocytes 13.4 % (21.0-51.0); %Monocytes 12.5 % (0.0-10.0); %Neutrophils 72.3 % (42.0-75.0); Hemoglobin 12.8 g/dL (12.0-16.0); Mean Corpuscular HGB CONC 32.6 g/dL (32.0-36.0); Mean Corpuscular Hemoglobin 32.5 pg (27.0-31.0); Mean Corpuscular Volume 99.6 fL (78.0-98.0); Platelet Count 277 thou/uL (130-400); Red Blood Cell (RBC) Count 3.93 mill/uL (4.20-5.40); White Blood Cell (WBC) Count 15.8 thou/uL (4.8-10.8)
[2019-06-03 16:22] LABS: ALT (SGPT) 26 U/L (8-55); AST (SGOT) 31 U/L (5-34); Albumin 3.4 g/dL (3.4-4.8); Alkaline Phosphatase 159 U/L (40-110); Anion Gap 14 mmol/L (10-20); BUN (Urea Nitrogen) 9 mg/dL (9.8-20.1); Bilirubin, Total 0.9 mg/dL (0.2-1.2); Calc. Creatinine Clearance 0 mL/min (70-130); Calcium 9.4 mg/dL (7.8-10.44); Carbon Dioxide 25 mmol/L (23-31); Chloride 101 mmol/L (98-107); Estimated GFR-MDRD 45; Globulin 3.6 g/dL (2.4-3.5); Glucose 130 mg/dL (80-115); Lipase 38 U/L (8-78); Potassium 3.9 mmol/L (3.5-5.1); Sodium 136 mmol/L (136-145)
[2019-06-03] MEDS ORDERED: Ondansetron PF 4 MG/2 ML Vial ONE (16:39)
[2019-06-03 17:30] LABS: Bilirubin Negative (Negative); Blood, Urine Trace (Negative); Clarity Clear (Clear); Glucose, Urine (Dipstick) Normal (Negative); Leukocyte Negative Leu/uL (Negative); Nitrite Negative (Negative); Protein, Urine (Dipstick) 20 mg/dL (Neg-Trace); Squamous Epithelial 0-3 HPF (0-3); WBC/HPF 0-3 HPF (0-3)
[2019-06-03 17:31] LABS: Bacteria/HPF 1+ HPF (None Seen)
[2019-06-03] MEDS ORDERED: Morphine 4 MG/ML VIAL ONE (17:33)
[2019-06-03] MEDS ORDERED: hydrALAZINE 20 MG/ML VIAL ONE ×2 (17:33→18:27)
--- NOTE | 2019-06-03 17:37 | RAD ---
EXAM: Single view of the chest HISTORY: Abdominal pain for 2 weeks COMPARISON: 06/01/2019 FINDINGS: Single view of the chest shows a normal sized cardiomediastinal silhouette. There is no rachel dence of consolidation, mass, or pleural effusion. The bones are unremarkable. IMPRESSION: No evidence of acute cardiopulmonary disease
[2019-06-03] MEDS ORDERED: Pantoprazole 40 MG VIAL ONE (19:05)
[2019-06-03] MEDS ORDERED: Aspirin Chewable 81 MG TAB ONE (19:05)
[2019-06-03 19:31] LABS: Troponin I 0.017 ng/mL (< 0.028)
--- NOTE | 2019-06-03 20:18 | PDOC.FPRHP ---
- History of Present Illness Chief Complaint: Abdominal pain History of Present Illness: 68 yo with recent Triple A repair comes in due to abominal pain. Pt comes in for abdominal pain in her abdomen. Describes pain as being stabbed by pitchforks. Pt reports movement makes worse. Nothing seems to make better. Reports pain around her waistline. Denies any burning urination. Pt reports some trouble with incontinence but this is a chronic problem. Denies peeing more often. Pt thinks pain is around her kidney. Pain radiates from back to front. Pain more present on the left side. Pt has been having back and abdominal pain for 2 weeks. Pt reports pain getting worse. Pt reports having some bloody BM's the last few days as well. Pt also reports having chest pain as well. Reports pain under left breast. Pain started this afternoon. Reports pain as crushing pain. Pt notices pain with movement. Rates pain 5/10. Pt has been to the ER on multiple occasions, post discharge on 05/25/19 after her Triple A repair, for abdominal pain. She was seen by Dr. Esparza at one visit who stated that the pain was not related to recent surgery. She had an abdominal CT a few days ago which showed enlarged galbladder from previous exam on 05/26 and recommended hida scan. Abdominal us showed distended gallbladder w / possible mild wall thickening, but no stones seen. again hida was recommended. ED Course: Spoke with ER physician who spoke with Dr. Esparza over the phone susiight who again let him know that he did not think pain at this time was related to recent Triple A repair. - Allergies/Adverse Reactions Allergies Allergy/AdvReac Type Severity Reaction Status Date / Time Iodinated Contrast Media Allergy Verified 05/21/19 11:31 [Iodinated Contrast- Oral and IV Dye] Penicillins Allergy Verified 05/21/19 11:31 - Home Medications Medication Instructions Recorded Confirmed Type Aspirin [Ecotrin Low Strength] 81 mg PO DAILY #30 tab 12/13/18 06/03/19 Rx cloNIDine [Catapres] 1 tab PO PRN PRN 03/31/19 06/03/19 History Metoprolol Tartrate [Lopressor] 12.5 mg PO BID tab 04/07/19 06/03/19 Rx hydrALAZINE [Apresoline] 75 mg PO TID #270 tab 04/07/19 06/03/19 Rx Escitalopram Oxalate [Lexapro] 0.5 tab PO QAM 05/21/19 06/03/19 History Losartan Potassium 100 mg PO QPM 05/21/19 06/03/19 History Flecainide [Tambocor] 50 mg PO BID 06/03/19 06/03/19 History Ranitidine HCl 150 mg PO BID 06/03/19 06/03/19 History Comments: Benadryl as needed Escitalopram 20 mg daily - History PMHx: Asthma, Aortic Aneurysm, Mitral valve prolapse, afib, GOLESBY, Cirrhosis, Psoriasis, HTN, PSHx: Aortic Aneurysm repari a week ago, appendectomy, hysterectomy, tonsillectomy, Parantine rods in back FHx: Social: Pt smokes 5-6 cigarrettes Pt is full code - Review of Systems General: denies: fever/chills, weight/appetite/sleep changes, night sweats Eyes: reports: vision changes (chronic). denies: eye pain ENT: denies: nasal congestion, rhinorrhea Respiratory: reports: shortness of breath. denies: cough, congestion Cardiovascular: reports: chest pain. denies: palpitation, edema Gastrointestinal: reports: nausea, constipation, abdominal pain. denies: vomiting, diarrhea, GI bleeding Genitourinary: reports: incontinence (chronic problem). denies: dysuria, polyuria Skin: denies: rashes, lesions Musculoskeletal: reports: pain (Pain in back). denies: stiffness, swelling, arthritis/arthralgias Neurological: denies: numbness, syncope, seizure, weakness Psychological: reports: anxiety. denies: depression - Vital signs BP: [152/78] HR: [81] RR: [18] Tmax: [98.9] Pox: [95]% on [RA] Wt: [103kg] - Physical Exam Constitutional: NAD, awake, alert and oriented, well developed HEENT: conjunctiva clear, grossly normal vision, grossly normal hearing Neck: supple, trachea midline, no JVD Chest: no lesions -Chest: Pt tender on left chest wall. Heart: RRR, normal S1/S2, pulses present, no edema -Heart: 2/6 systolic ejection murmur Lungs: CTAB, no respiratory distress, good air movement, no rales/rhonchi, no wheezing Abdomen: soft -Abdomen: tender to palpation in the suprabupic area. No CVA tenderness noted Musculoskeletal: normal structure, normal tone Neurological: no focal deficit, normal sensation Skin: no rash/lesions, good turgor, capillary refill <2 seconds Heme/Lymphatic: no unusual bruising or bleeding Psychiatric: normal mood and affect, good judgment and insight, intact recent and remote memory FMR H&P: Results - Labs Result Diagrams: 06/04/19 04:22 06/04/19 04:22 Lab results: WBC 15.8 thou/uL (4.8-10.8) H 06/03/19 15:53 Hgb 12.8 g/dL (12.0-16.0) 06/03/19 15:53 Hct 39.1 % (36.0-47.0) 06/03/19 15:53 MCV 99.6 fL (78.0-98.0) H 06/03/19 15:53 Plt Count 277 thou/uL (130-400) 06/03/19 15:53 Neutrophils % 72.3 % (42.0-75.0) 06/03/19 15:53 Sodium 136 mmol/L (136-145) 06/03/19 15:53 Potassium 3.9 mmol/L (3.5-5.1) 06/03/19 15:53 Chloride 101 mmol/L (98-107) 06/03/19 15:53 Carbon Dioxide 25 mmol/L (23-31) 06/03/19 15:53 BUN 9 mg/dL (9.8-20.1) L 06/03/19 15:53 Creatinine 1.19 mg/dL (0.6-1.1) H 06/03/19 15:53 Glucose 130 mg/dL (80-115) H 06/03/19 15:53 Calcium 9.4 mg/dL (7.8-10.44) 06/03/19 15:53 Total Bilirubin 0.9 mg/dL (0.2-1.2) 06/03/19 15:53 AST 31 U/L (5-34) 06/03/19 15:53 ALT 26 U/L (8-55) 06/03/19 15:53 Alkaline Phosphatase 159 U/L (40-110) H 06/03/19 15:53 Creatine Kinase 35 U/L (29-168) 06/03/19 15:53 B-Natriuretic Peptide 172.2 pg/mL (0-100) H 06/03/19 15:53 Serum Total Protein 7.0 g/dL (6.0-8.3) 06/03/19 15:53 Albumin 3.4 g/dL (3.4-4.8) 06/03/19 15:53 Lipase 38 U/L (8-78) 06/03/19 15:53 Urine Ketones Trace mg/dL (Negative) A 06/03/19 17:20 Urine Blood Trace (Negative) A 06/03/19 17:20 Urine Nitrite Negative (Negative) 06/03/19 17:20 Ur Leukocyte Esterase Negative Yahir/uL (Negative) 06/03/19 17:20 Urine RBC 4-6 HPF (0-3) A 06/03/19 17:20 Urine WBC 0-3 HPF (0-3) 06/03/19 17:20 Ur Squamous Epith Cells 0-3 HPF (0-3) 06/03/19 17:20 Urine Bacteria 1+ HPF (None Seen) A 06/03/19 17:20 - EKG Interpretation EKG: Normal Sinus Rhythm. - Radiology Interpretation CT scan - abdomen Status: image reviewed by me, report reviewed by me (Image from ER visit on 06/01 - showed very large gallbladder which has increased in size since the prior study of 110/30. A HIDA scan might be useful. Mildly enlarge but nodular liver. Cirrhosis assumed. Small hiatal hernia) US - abdomen Status: image reviewed by me, report reviewed by me (06/01 distended gallbladder w/ possible mild wall thickening but no stones seen, Recommend HIDA. Borderline size of common bile duct. Mild hepatomegaly.) FMR H&P: A/P - Problem List (1) Abdominal pain Current Visit: Yes Status: Acute Code(s): R10.9 - UNSPECIFIED ABDOMINAL PAIN (2) AAA (abdominal aortic aneurysm) Current Visit: No Status: Chronic Code(s): I71.4 - ABDOMINAL AORTIC ANEURYSM , WITHOUT RUPTURE Qualifiers: Presence of rupture: without rupture Qualified Code(s): I71.4 - Abdominal aortic aneurysm, without rupture Comment: stable (3) Non-alcoholic cirrhosis Current Visit: No Status: Chronic (4) Tobacco abuse Current Visit: No Status: Chronic Code(s): Z72.0 - TOBACCO USE (5) Chest pain Current Visit: No Status: Acute Code(s): R07.9 - CHEST PAIN, UNSPECIFIED Comment: PE ruled out.Stress test results pending.Test will finish tomorrow (6) Mitral valve prolapse Current Visit: Yes Status: Acute Code(s): I34.1 - NONRHEUMATIC MITRAL (VALVE ) PROLAPSE (7) A-fib Current Visit: Yes Status: Acute Code(s): I48.91 - UNSPECIFIED ATRIAL FIBRILLATION - Plan 68yo CF with h/o AAA repeat 05/24, mitral valve prolapse, afib, OGLESBY, multiple back surgeries presents with abdominal, chest, and back pain. 1. Abdominal Pain -Reviewed recent CT scan and Abdominal US. Reports above. There is concern for underlying gallbladder pathology. -Will consider HIDA scan and consult General surgery in AM -Pt had recent Triple A repair but ER doc spoke with Dr. Esparza again last night who states pain is not related. Per recent note on 05/[address] Esparza he stated that he did not want her to have narcotics and needs to have BM -Pt reported bloody BM- Fecal occult blood pending -UA had +bacteria. Pt tender in suprapubic area. WBC mildly elevated. Will get urine cx and tx if needed. Possible cause of pain. No abx at this time. VSS, will cont to monitor. -Tylenol and Toradol for pain. 2. Atypical Chest Pain -Pt having chest pain likely more muscoskeletal in nature -Will trend trops. -Possibly consider stress in AM 3. HTN Urgency -Restarted home BP medications. Held clonidine as could be causing rebound HTN -Hydralazine IV prn as needed for SPB >180 4. OGLESBY, Cirrhosis -AST/ALT stable -Continue to monitor 5. Hx of A.fib -Currently in sinus rhythm, no home anticoagulation as pt reports she is "easy bleeder" -continue home meds 6. Mitral Valve Prolapse -Continue home meds. 7. Depression/Anxiety -Cont lexapro daily Code: Full VTE: Lovenox Diet: NPO at midnight for possible GI/Surg interventions/stress IVF: ELIDA PCP: [facility] in [place], [place] Disposition/LOS: Admitted to [facility] for atypical chest pain, abdominal pain and back pain. Recent AAA repair, unlikely related per previous records. Recent concern for gallbladder pathology, will consider Surgery consult vs HIDA in AM. Anticipate hospitalization <48 hours. Addendum - Attending - Attending Attestation Date/Time: 06/04/19 [id number] I personally evaluated the patient and discussed the management with Dr. Miguel last night. I agree with the History, Examination, Assessment and Plan documented above with any addition or exceptions noted below.
[2019-06-03 21:31] VITALS: BMI 36.9
[2019-06-03] MEDS ORDERED: hydrALAZINE 20 MG/ML VIAL SLOW IVP PRN ×2 (21:39→22:51)
[2019-06-03] MEDS ORDERED: Ondansetron ODT 4 MG TAB SL PRN (21:40)
[2019-06-03] MEDS ORDERED: Sodium Chloride 0.9% 1,000 ML IV SCH (21:40)
[2019-06-03] MEDS ORDERED: Ondansetron PF 4 MG/2 ML Vial IVP PRN ×2 (21:40→22:51)
[2019-06-03] MEDS ORDERED: Acetaminophen 325 MG TAB PO PRN (22:46)
[2019-06-03] MEDS ORDERED: Ondansetron ODT 8 MG TAB SL PRN (22:51)
[2019-06-03] MEDS: Ketorolac Tromethamine 30 MG/ML VIAL IVP PRN (23:22)
[2019-06-04 00:53] LABS: Troponin I 0.011 ng/mL (< 0.028)
[2019-06-04 04:47] LABS: #Eosinphils 0.3 thou/uL (0.0-0.7); #Lymphocytes 2.1 thou/uL (1.20-3.40); #Monocytes 1.2 thou/uL (0.11-0.59); %Basophils 0.3 % (0.0-1.0); %Lymphocytes 24.4 % (21.0-51.0); %Monocytes 13.8 % (0.0-10.0); %Neutrophils 58.5 % (42.0-75.0); Hemoglobin 10.5 g/dL (12.0-16.0); Mean Corpuscular HGB CONC 32.3 g/dL (32.0-36.0); Mean Corpuscular Hemoglobin 32.1 pg (27.0-31.0); Mean Corpuscular Volume 99.4 fL (78.0-98.0); Mean Platelet Volume 7.1 fL (7.4-10.4); Platelet Count 185 thou/uL (130-400); RBC Distribution Width 12.9 % (11.5-14.5); Red Blood Cell (RBC) Count 3.27 mill/uL (4.20-5.40); White Blood Cell (WBC) Count 8.6 thou/uL (4.8-10.8)
[2019-06-04 05:14] LABS: ALT (SGPT) 16 U/L (8-55); AST (SGOT) 20 U/L (5-34); Albumin 2.8 g/dL (3.4-4.8); Alkaline Phosphatase 125 U/L (40-110); Anion Gap 12 mmol/L (10-20); BUN (Urea Nitrogen) 10 mg/dL (9.8-20.1); Bilirubin, Total 0.7 mg/dL (0.2-1.2); Calc. Creatinine Clearance 83 mL/min (70-130); Calcium 8.6 mg/dL (7.8-10.44); Carbon Dioxide 28 mmol/L (23-31); Chloride 106 mmol/L (98-107); Estimated GFR-MDRD 52; Globulin 2.9 g/dL (2.4-3.5); Glucose 86 mg/dL (80-115); Potassium 3.8 mmol/L (3.5-5.1); Protein, Total 5.7 g/dL (6.0-8.3); Sodium 142 mmol/L (136-145)
[2019-06-04] MEDS: Ketorolac Tromethamine 30 MG/ML VIAL IVP PRN ×3 (07:37→21:06)
[2019-06-04] MEDS ORDERED: Polyethylene Glycol 3350 17 GM Packet PO SCH (09:00)
[2019-06-04] MEDS ORDERED: Senokot S 8.6-50 MG TAB PO SCH (09:00)
[2019-06-04] MEDS: Aspirin 81 mg Enteric Coated Tablet PO SCH (09:02)
[2019-06-04] MEDS: Dicyclomine 10 MG CAP PO SCH ×3 (09:02→20:31)
[2019-06-04] MEDS: Escitalopram Oxalate 20 mg Tablet PO SCH (09:03)
[2019-06-04] MEDS: Enoxaparin Sodium 40 MG/0.4 ML SYRINGE SC SCH (09:03)
[2019-06-04] MEDS: hydrALAZINE 25 MG TAB PO SCH ×3 (09:04→20:31)
[2019-06-04] MEDS: Metoprolol Tartrate 25 MG TAB PO SCH ×2 (09:04→20:33)
[2019-06-04] MEDS: Flecainide 50 MG TAB PO SCH ×2 (09:04→20:32)
[2019-06-04] MEDS: Famotidine 20 MG TAB PO SCH ×2 (09:04→20:32)
--- NOTE | 2019-06-04 12:21 | NM ---
NUCLEAR MEDICINE HIDA SCAN: HISTORY: Abdominal pain. COMPARISON: None. TECHNIQUE: HIDA scan: Patient was administered 5 mCi of technetium 99m mebrofenin intravenously. Patient was administered 2 mcg of CCK 30 minutes prior to injection of radiopharmaceutical. Patient w as administered 2 mcg of CCK infused over 30 minutes and 1 hour post injection of radiopharmaceutical. FINDINGS: Appropriate uptake of the radiotracer by the hepatic parenchyma. Localization of radiotracer in the g allbladder as early as 15 minutes. There is passage of radiotracer from the common bile duct into small bowel loops. Gallbladder ejection fraction 85%. IMPRESSION: 1. No scintigraphic evidence of acute cholecystitis. 2. An 85% gallbladder ejection fraction. Transcribed Date/Time: 06/04/2019 12:25 PM
[2019-06-04] MEDS ORDERED: GoLYTELY 4,000 ml Bottle PO SCH (15:30)
--- NOTE | 2019-06-04 16:57 | PDOC.HOSPP ---
- Subjective Encounter Date: 06/04/19 Encounter Time: 16:00 Subjective: Pt seen for followup re: abdo pain. Reports ongoing LLQ pain. - Objective Vital Signs & Weight: Vital Signs (12 hours) Temp Pulse Resp BP Pulse Ox 06/04/19 15:28 98.5 F 69 14 172/77 H 95 06/04/19 12:16 98.3 F 72 14 177/79 H 97 06/04/19 07:46 98.2 F 64 16 180/84 H 98 Weight Weight 229 lb I&O: 06/03/19 06/04/19 06/05/19 06:59 06:59 06:59 Intake Total 745 175 Balance 745 175 Result Diagrams: 06/04/19 04:22 06/04/19 04:22 Additional Labs: Labs and MARs reviewed by mt Hospitalist ROS - Review of Systems Gastrointestinal: reports: abdominal pain. denies: nausea, vomiting, diarrhea, constipation, melena, hematochezia Genitourinary: denies: dysuria, frequency, incontinence, hematuria, retention - Medication Medications: Active Medications Generic Name Dose Route Start Last Admin Trade Name Freq PRN Reason Stop Dose Admin Aspirin 81 mg 06/04/19 09:00 06/04/19 09:02 Ecotrin PO 81 mg DAILY GARRET Administration Dicyclomine HCl 10 mg 06/04/19 09:00 06/04/19 14:55 Bentyl PO 10 mg TID GARRET Administration Enoxaparin Sodium 40 mg 06/04/19 09:00 06/04/19 09:03 Lovenox SC 40 mg 0900 GARRET Administration Escitalopram Oxalate 10 mg 06/04/19 09:00 06/04/19 09:03 Lexapro PO 10 mg QAM GARRET Administration Famotidine 20 mg 06/04/19 09:00 06/04/19 09:04 Pepcid PO 20 mg BID GARRET Administration Flecainide Acetate 50 mg 06/04/19 09:00 06/04/19 09:04 Tambocor PO 50 mg BID GARRET Administration Hydralazine HCl 75 mg 06/04/19 09:00 06/04/19 14:55 Apresoline PO 75 mg TID GARRET Administration Ketorolac Tromethamine 15 mg 06/03/19 22:48 06/04/19 14:56 Toradol IVP 06/08/19 22:49 15 mg Q6H PRN Administration Pain Metoprolol Tartrate 12.5 mg 06/04/19 09:00 06/04/19 09:04 Lopressor PO 12.5 mg BID GARRET Administration - Exam General - other findings: Obese Eye: anicteric sclera ENT: moist mucosa Neck: supple Heart: RRR Respiratory: CTAB Gastrointestinal: soft, normal bowel sounds, no guarding, no rigidity, tender to palpation Gastrointestinal - other findings: LLQ mildly tender Extremities: no clubbing Musculoskeletal: normal strength Psychiatric: normal affect, normal behavior Hosp A/P (1) Abdominal pain Code(s): R10.9 - UNSPECIFIED ABDOMINAL PAIN Status: Acute (2) HTN (hypertension) Code(s): I10 - ESSENTIAL (PRIMARY) HYPERTENSION Status: Chronic (3) Obesity (BMI 30-39.9) Code(s): E66.9 - OBESITY, UNSPECIFIED Status: Chronic - Plan HIDA report noted. GI consulted. Add PRN IV Hydralazine for blood pressure spikes. Recent AAA surgery.
[2019-06-04] MEDS: Losartan 25 MG TAB PO SCH (20:33)
--- NOTE | 2019-06-04 21:03 | CON ---
DATE OF CONSULTATION: 06/04/2019 REQUESTING PHYSICIAN: Dr. Hawk. REASON FOR CONSULTATION: Abdominal pain. HISTORY OF PRESENT ILLNESS: Colleen Villalobos is a 68-year-old woman, who was admitted to the hospital yesterday with 2 weeks of escalating abdominal pain. She has a history of infrarenal abdominal aortic aneurysm. About 2 weeks ago, she started having pain in the lower abdomen in the midline. This is associated with an increase in her chronic back pain as well. She had a known 5 cm aortic aneurysm and so she underwent repair with endovascular stent placement on 05/24/2019, this went well. Unfortunately, the patient has continued to have worsening pain since then. It flared to the point that she presented to the hospital and was admitted yesterday. She had CT imaging demonstrating a large gallbladder with some thickening also demonstrated on ultrasound, but no gallstones. A HIDA scan was normal. However, CT scan suggested nodular liver and showed her infrarenal stent, but did not show any other significant abnormalities. Liver tests and lipase have been normal. The patient reports that the pain is essentially constant, but anytime she gets up and moves around, it gets worse. She is not sure, if there is any association with eating. She has some chronically irregular bowel habits, which has not changed. She thought maybe, if she had a good bowel movement the pain would change, so she used an enema and had a great bowel movement, but it did not affect the pain at all. She has had some intermittent mild rectal bleeding through the years, but none recently. She recalls having undergone EGD and colonoscopy about 4 years ago in [place] demonstrating only diverticulosis. She was evaluated by surgery earlier today, who recommended GI evaluation. Dr. Esparza was also evidently contacted and did not feel that the pain was likely related to her recent endovascular stent. During this time she has had some intermittent nausea with occasional episodes of nonbloody emesis. REVIEW OF SYSTEMS: Full review of systems including constitutional, head, eyes, ears, nose, throat, GI, , cardiovascular, respiratory, musculoskeletal, neurologic systems is negative except as noted in the HPI. PAST MEDICAL HISTORY: Asthma, abdominal aortic aneurysm, mitral valve prolapse, atrial fibrillation, nonalcoholic steatohepatitis, cirrhosis, psoriasis, hypertension, AAA, endovascular stent placement 1 week ago, appendectomy, hysterectomy, tonsillectomy, multiple back surgeries. FAMILY HISTORY: A daughter had renal cell carcinoma. FAMILY HISTORY: No family history of gastrointestinal malignancies. SOCIAL HISTORY: The patient does smoke. ALLERGIES: PENICILLIN AND IODINE. HOME MEDICATIONS: 1. Aspirin 81 mg daily. 2. Clonidine p.r.n. 3. Metoprolol. 4. Hydralazine. 5. Lexapro. 6. Losartan. 7. Flecainide. 8. Ranitidine 150 mg p.o. b.i.d. PHYSICAL EXAMINATION: VITAL SIGNS: Temperature 98.3, blood pressure 177/79, pulse 72, 97% oxygen saturation on room air. GENERAL: A 68-year-old woman, lying in bed, in mild distress. MENTAL: Alert and fully oriented. Able to give a detailed coherent history. SKIN: No jaundice, no rashes were palpable. EYES: No scleral icterus. Extraocular movements intact. ENT: Mucous membranes moist. No oral lesions. LYMPH: No submandibular or supraclavicular lymphadenopathy. ENDOCRINE: Thyroid nontender to palpation. HEART: Regular rate and rhythm. LUNGS: Clear to auscultation bilaterally. ABDOMEN: Bowel sounds are present. The abdomen is soft. She is tender to palpation in the lower abdomen, but no guarding, rebound, tenderness. No masses or organomegaly appreciated. EXTREMITIES: No peripheral edema. VESSELS: Radial pulses 2+ bilaterally. NEUROLOGIC: Cranial nerves 2 through 12 intact bilaterally. No focal deficits. LABORATORY STUDIES: WBC initially 15.8, now down to 8.6, hemoglobin 10.5, platelets 185. Sodium 142, potassium 3.8, BUN 10, creatinine 1.04, total bilirubin 0.7, alkaline phosphatase 125, AST 20, ALT 16, albumin 2.8, lipase 38. BNP is 172. Troponin negative. Urinalysis showing only 4-6 RBCs. IMAGING STUDIES: On 06/01, abdominal ultrasound demonstrated distended gallbladder with mild thickening, but no stones apparent. On 06/03/2019, chest x-ray showed no acute processes. On 06/04/2019, HIDA scan was normal. ASSESSMENT/PLAN: 1. Lower abdominal pain, unclear etiology. 2. Vomiting, associated with the abdominal pain. The etiology of the patient's recent pain is unclear. She is quite certain that the pain preceded her recent endovascular procedure. Recent CT shows no increase in size of her abdominal aortic aneurysm. She does have a distended gallbladder, but I do note the normal HIDA scan, normal liver function tests and lipase. She is not really having any colitic symptoms, but I do agree further investigation is warranted. We will plan to proceed with diagnostic EGD and colonoscopy tomorrow, after bowel preparation tonight. The patient understands and agrees with the plan. Thank you for the consultation. Please call anytime with questions or concerns. Job ID: [id number]
--- NOTE | 2019-06-04 23:04 | CON ---
DATE OF CONSULTATION: CHIEF COMPLAINT: Left lower quadrant abdominal pain. HISTORY OF PRESENT ILLNESS: This is a 68-year-old female with a 1-month history of left lower abdominal pain. They thought it was due to an infrarenal abdominal aortic aneurysm, so she had an endovascular repair about 10 days ago, but no help. She says her bowels were irregular, but that is normal for her. She had a colonoscopy 3 years ago. Pain occasionally radiates to the back. There is some nausea and occasional vomiting. She has had low-grade fever. No weight loss. PAST MEDICAL HISTORY: Significant for lymphedema of the right leg. She has had an aneurysm in her head. She has had abdominal aortic aneurysm and hypertension. PAST SURGICAL HISTORY: She had clipping of the cerebral aneurysm. She has had the endovascular repair of the aortic aneurysm. She has had an appendectomy, hysterectomy, tonsil and adenoidectomy. MEDICATIONS: Include, 1. Aspirin. 2. Clonidine. 3. Metoprolol. 4. Hydralazine. 5. Lexapro. 6. Losartan. 7. Tambocor. 8. Ranitidine. ALLERGIES: PENICILLIN, IODINE. FAMILY HISTORY: Both parents had CVAs, hypertension, and heart disease. SOCIAL HISTORY: She is . Retired. Smokes 5 cigarettes daily. No alcohol. PHYSICAL EXAMINATION: GENERAL: She is an obese female, in no apparent distress. Alert, awake, oriented. VITAL SIGNS: Temperature is 98.5, pulse 69, blood pressure 172/77. GENERAL: Well-developed, well-nourished female. Again, obese. HEENT: Unremarkable. LUNGS: Clear. HEART: Regular rate and rhythm. ABDOMEN: Obese, soft. She is tender in the left lower quadrant. I do not feel any masses. EXTREMITIES: She has some edema on the left lower extremity. LABORATORY DATA: Her white count is 8.6, H and H 10 and 32, platelet count 185. Her electrolytes are fine. Alkaline phosphatase a little elevated at 125. She had a CT scan showing a distended gallbladder, infrarenal aortic aneurysm, enlarged nodular liver consistent with possible cirrhosis. She had a HIDA scan showing a normal ejection fraction at 85%. No evidence of cholecystitis. ASSESSMENT: Chronic abdominal pain, unknown etiology. PLAN: Recommend GI consultation. No surgical intervention at this time is needed. Job ID: [id number]
[2019-06-05] MEDS: Ketorolac Tromethamine 30 MG/ML VIAL IVP PRN ×3 (02:57→20:44)
[2019-06-05] MEDS: hydrALAZINE 20 MG/ML VIAL SLOW IVP PRN (03:06)
[2019-06-05] MEDS ORDERED: Morphine 2 MG/ML SYRINGE SLOW IVP SCH (04:45)
[2019-06-05 05:44] LABS: ALT (SGPT) 20 U/L (8-55); AST (SGOT) 27 U/L (5-34); Albumin 2.8 g/dL (3.4-4.8); Alkaline Phosphatase 135 U/L (40-110); Anion Gap 14 mmol/L (10-20); BUN (Urea Nitrogen) 10 mg/dL (9.8-20.1); Bilirubin, Total 0.8 mg/dL (0.2-1.2); Calc. Creatinine Clearance 79 mL/min (70-130); Calcium 8.5 mg/dL (7.8-10.44); Carbon Dioxide 24 mmol/L (23-31); Chloride 104 mmol/L (98-107); Estimated GFR-MDRD 50; Globulin 3.1 g/dL (2.4-3.5); Glucose 100 mg/dL (80-115); Potassium 3.6 mmol/L (3.5-5.1); Protein, Total 5.9 g/dL (6.0-8.3); Sodium 138 mmol/L (136-145)
[2019-06-05 05:53] LABS: Band 2 % (5-11); Eosinophils 2 % (0-10); Hemoglobin 10.6 g/dL (12.0-16.0); Lymphocytes 19 % (21-51); MDiff Complete? YES; Mean Corpuscular HGB CONC 32.4 g/dL (32.0-36.0); Mean Corpuscular Hemoglobin 31.8 pg (27.0-31.0); Mean Corpuscular Volume 98.2 fL (78.0-98.0); Mean Platelet Volume 6.9 fL (7.4-10.4); Monocytes 13 % (0-10); Neutrophil 64 % (42-75); Platelet Count 218 thou/uL (130-400); Platelet Morphology Comment Appears Adequate; RBC Distribution Width 12.9 % (11.5-14.5); Red Blood Cell (RBC) Count 3.35 mill/uL (4.20-5.40); White Blood Cell (WBC) Count 8.8 thou/uL (4.8-10.8)
--- NOTE | 2019-06-05 08:24 | PRG ---
DATE OF SERVICE: 06/05/2019 SUBJECTIVE: Ms. Villalobos did not drink her bowel prep last night. She did not like the taste. It made her faintly nauseated. She did not have any vomiting, but she did not drink much, had no bowel movements. She has been otherwise stable. She says her lower abdominal pain is about the same as yesterday. OBJECTIVE: VITAL SIGNS: Temperature 98.7, pulse 62, blood pressure 139/82, and 94% oxygen saturation on room air. GENERAL: A 68-year-old woman lying in bed comfortably, in no acute distress. HEART: Regular rate and rhythm. LUNGS: Clear to auscultation bilaterally. ABDOMEN: Bowel sounds are present. The abdomen is soft. There is some tenderness to palpation in the lower abdomen, but no guarding, rebound, tenderness. EXTREMITIES: No peripheral edema. VESSELS: Radial pulses 2+ bilaterally. LABORATORY STUDIES: WBC 8.8, hemoglobin stable at 10.6, platelets 218. Sodium 138, potassium 3.6, BUN 10, creatinine 1.09. Alkaline phosphatase 135, AST 27, ALT 20, total bilirubin 0.8. ASSESSMENT AND PLAN: 1. Lower abdominal pain, unclear etiology. 2. Vomiting. The etiology of her pain remains unclear. EGD and colonoscopy are still warranted. I had a long discussion with the patient this morning. She is willing to try again today to take the bowel prep. She can take this slowly, but please try to get it all down by midnight, then n.p.o. after midnight. We will plan for the procedure tomorrow. Job ID: [id number]
[2019-06-05] MEDS: Escitalopram Oxalate 20 mg Tablet PO SCH (08:49)
[2019-06-05] MEDS: Aspirin 81 mg Enteric Coated Tablet PO SCH (08:49)
[2019-06-05] MEDS: Dicyclomine 10 MG CAP PO SCH ×3 (08:49→20:42)
[2019-06-05] MEDS: Enoxaparin Sodium 40 MG/0.4 ML SYRINGE SC SCH (08:49)
[2019-06-05] MEDS: Metoprolol Tartrate 25 MG TAB PO SCH ×2 (08:50→20:43)
[2019-06-05] MEDS: Famotidine 20 MG TAB PO SCH ×2 (08:50→20:42)
[2019-06-05] MEDS: hydrALAZINE 25 MG TAB PO SCH ×3 (08:50→20:42)
[2019-06-05] MEDS: Flecainide 50 MG TAB PO SCH ×2 (08:50→20:43)
--- NOTE | 2019-06-05 10:27 | PDOC.HOSPP ---
- Subjective Encounter Date: 06/05/19 Encounter Time: 10:25 Subjective: f/u for non-specific LLQ abd pain. Unable to complete bowel prep overnight with plans to re-attempt today and have Endoscopy in am. - Objective Vital Signs & Weight: Vital Signs (12 hours) Temp Pulse Resp BP BP Pulse Ox 06/05/19 07:51 98.7 F 62 16 139/82 94 L 06/05/19 04:04 164/82 H 06/05/19 03:06 69 06/05/19 03:03 186/87 H 06/05/19 03:01 98.4 F 69 16 191/82 H 96 Weight Weight 229 lb I&O: 06/04/19 06/05/19 06/06/19 06:59 06:59 06:59 Intake Total 745 2275 450 Output Total 400 Balance 745 2275 50 Result Diagrams: 06/05/19 04:39 06/05/19 04:39 Additional Labs: Microbiology 06/03/19 17:20 Urine clean catch Urine Culture - Preliminary Laboratory Tests 06/03/19 06/03/19 06/03/19 15:53 15:53 15:53 WBC 15.8 H Hgb 12.8 MCV 99.6 H B-Natriuretic Peptide 172.2 H Lipase 38 06/04/19 04:22 WBC 8.6 Hgb 10.5 L MCV 99.4 H B-Natriuretic Peptide Lipase Radiology Reviewed by me: Yes (HIDA scan - GB EF 85%, negative study) EKG Reviewed by me: Yes (Tele - SR) Hospitalist ROS - Medication Medications: Active Medications Generic Name Dose Route Start Last Admin Trade Name Rosalba PRN Reason Stop Dose Admin Aspirin 81 mg 06/04/19 09:00 06/05/19 08:49 Ecotrin PO 81 mg DAILY GARRET Administration Dicyclomine HCl 10 mg 06/04/19 09:00 06/05/19 08:49 Bentyl PO 10 mg TID GARRET Administration Enoxaparin Sodium 40 mg 06/04/19 09:00 06/05/19 08:49 Lovenox SC 40 mg 0900 GARRET Administration Escitalopram Oxalate 10 mg 06/04/19 09:00 06/05/19 08:49 Lexapro PO 10 mg QAM GARRET Administration Famotidine 20 mg 06/04/19 09:00 06/05/19 08:50 Pepcid PO 20 mg BID GARRET Administration Flecainide Acetate 50 mg 06/04/19 09:00 06/05/19 08:50 Tambocor PO 50 mg BID GARRET Administration Hydralazine HCl 75 mg 06/04/19 09:00 06/05/19 08:50 Apresoline PO 75 mg TID GARRET Administration Hydralazine HCl 10 mg 06/04/19 17:00 06/05/19 03:06 Apresoline SLOW IVP 10 mg Q6H PRN Administration SBP Greater Than 170 Ketorolac Tromethamine 15 mg 06/03/19 22:48 06/05/19 08:54 Toradol IVP 06/08/19 22:49 15 mg Q6H PRN Administration Pain Losartan Potassium 100 mg 06/04/19 21:00 06/04/19 20:33 Cozaar PO 100 mg QPM GARRET Administration Metoprolol Tartrate 12.5 mg 06/04/19 09:00 06/05/19 08:50 Lopressor PO 12.5 mg BID GARRET Administration Ondansetron HCl 4 mg 06/03/19 22:51 06/04/19 20:30 Zofran Odt SL 4 mg Q6H PRN Administration Nausea/Vomiting - Exam General Appearance: NAD, awake alert Eye: PERRL, anicteric sclera ENT: normocephalic atraumatic, no oropharyngeal lesions Neck: supple, symmetric, no JVD, no thyromegaly, no lymphadenopathy Heart: RRR, no murmur, no gallops, no rubs, normal peripheral pulses Respiratory: CTAB, no wheezes, no rales, no ronchi Gastrointestinal: soft, non-distended, normal bowel sounds, tender to palpation Gastrointestinal - other findings: mild TTP in LLQ Extremities: no cyanosis, no clubbing, no edema Skin: normal turgor, no lesions Neurological: cranial nerve grossly intact, no new deficit Musculoskeletal: normal tone, normal strength Psychiatric: A&O x 3 Hosp A/P (1) Abdominal pain Code(s): R10.9 - UNSPECIFIED ABDOMINAL PAIN Status: Acute Qualifiers: Abdominal location: left lower quadrant Qualified Code(s): R10.32 - Left lower quadrant pain Plan: Etiology unclear, supportive mgmt, plan for endoscopy after appropriate bowel prep (2) BRENNAN (acute kidney injury) Code(s): N17.9 - ACUTE KIDNEY FAILURE, UNSPECIFIED Status: Acute Plan: Mild, resolved, avoid nephrotoxic meds and limit contrast exposure (3) HTN (hypertension) Code(s): I10 - ESSENTIAL (PRIMARY) HYPERTENSION Status: Chronic Qualifiers: Hypertension type: essential hypertension Qualified Code(s): I10 - Essential (primary) hypertension Plan: Stable, continue home BP regimen, serial monitoring (4) Obese Code(s): E66.9 - OBESITY, UNSPECIFIED Status: Chronic (5) Macrocytic anemia Code(s): D53.9 - NUTRITIONAL ANEMIA, UNSPECIFIED Status: Chronic Plan: Stable, likely multifactorial, no evidence of active loss, serial H/H - Plan plan discussed w/ family, out of bed/ambulate Stable currently Plan for Golytely bowel prep today Clear liquids Pain control with Toradol OOB/ambulate AM lab: CMP, CBC Likely home after endoscopy in am
[2019-06-05] MEDS: Losartan 25 MG TAB PO SCH (20:42)
[2019-06-06] MEDS: Ketorolac Tromethamine 30 MG/ML VIAL IVP PRN (06:15)
[2019-06-06 06:58] LABS: Albumin 2.9 g/dL (3.4-4.8)
[2019-06-06 07:00] LABS: Calcium 8.5 mg/dL (7.8-10.44); Chloride 105 mmol/L (98-107); Potassium 3.6 mmol/L (3.5-5.1); Sodium 138 mmol/L (136-145)
[2019-06-06 07:01] LABS: Glucose 101 mg/dL (80-115); Protein, Total 5.9 g/dL (6.0-8.3)
[2019-06-06 07:02] LABS: Carbon Dioxide 24 mmol/L (23-31)
[2019-06-06 07:03] LABS: Bilirubin, Total 0.8 mg/dL (0.2-1.2)
[2019-06-06 07:04] LABS: Alkaline Phosphatase 133 U/L (40-110); Calc. Creatinine Clearance 77 mL/min (70-130); Estimated GFR-MDRD 48
[2019-06-06 07:05] LABS: BUN (Urea Nitrogen) 8 mg/dL (9.8-20.1)
[2019-06-06 07:06] LABS: AST (SGOT) 26 U/L (5-34)
[2019-06-06 07:07] LABS: ALT (SGPT) 18 U/L (8-55)
[2019-06-06 07:38] LABS: Anion Gap 13 mmol/L (10-20)
[2019-06-06 08:09] LABS: Band 1 % (5-11); Eosinophils 1 % (0-10); Lymphocytes 22 % (21-51); MDiff Complete? YES; Mean Corpuscular HGB CONC 33.5 g/dL (32.0-36.0); Mean Corpuscular Hemoglobin 32.7 pg (27.0-31.0); Mean Corpuscular Volume 97.7 fL (78.0-98.0); Mean Platelet Volume 6.7 fL (7.4-10.4); Monocytes 14 % (0-10); Neutrophil 62 % (42-75); Platelet Count 230 thou/uL (130-400); RBC Distribution Width 12.8 % (11.5-14.5); Red Blood Cell (RBC) Count 3.36 mill/uL (4.20-5.40); White Blood Cell (WBC) Count 7.7 thou/uL (4.8-10.8)
[2019-06-06] MEDS ORDERED: Promethazine HCl 25 MG/ML VIAL IM PRN (09:00)
[2019-06-06] MEDS ORDERED: Promethazine HCl 25 MG/ML VIAL SLOW IVP PRN (09:00)
[2019-06-06] MEDS ORDERED: Ondansetron HCl/PF 4 MG/2 ML Vial IVP PRN (09:00)
--- NOTE | 2019-06-06 09:24 | OP ---
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 PROCEDURES PERFORMED: 1. Esophagogastroduodenoscopy with biopsies. 2. Colonoscopy, diagnostic. INDICATIONS: 1. Lower abdominal pain of unclear etiology. 2. Vomiting. MEDICATIONS: See Anesthesia record. FINDINGS: After discussion of the risks, benefits, and alternatives of the procedure, informed consent was obtained and witnessed. Pre-endoscopic cardiopulmonary examination was satisfactory. Time-out was performed before sedation was achieved. Sedation was achieved with Anesthesia assistance in the endoscopy unit. A Pentax adult upper endoscope was placed into the oropharynx and passed through the cricopharyngeus under direct visualization. The esophageal mucosa appeared normal throughout with a normal-appearing Z-line at 38 cm from the incisors. The endoscope was advanced into the stomach. Forward and retroflexed views of the entire gastric mucosa were obtained. There was some patchy mucosal erythema and edema throughout the gastric body and antrum. There were no erosions or ulcerations noted. Severity is mild. Biopsies were obtained from the gastric antrum and body to rule out H pylori infection. The endoscope was advanced through the pylorus and into the first and second portions of the duodenum, which appeared normal. The upper endoscope was completely withdrawn, and the patient was repositioned. Digital rectal exam was performed, which was unremarkable. A Pentax adult colonoscope was inserted into the anus and passed forward to the cecum in the usual fashion. The cecal base was identified by the appendiceal orifice as well as the ileocecal valve. The terminal ileum was not intubated. The colonoscope was slowly withdrawn in a gradual and circumferential manner with careful examination of the colonic mucosa. Examination was difficult because the quality of the prep was poor. There was a large amount of semi-liquid and some particulate stool dispersed throughout the colon. This did obscure the view of much of the mucosa. The prep was adequate to exclude any mass lesions or gross mucosal abnormalities, but certainly not adequate for screening purposes. We were visualized, the colonic mucosa appeared completely normal throughout. I could perceive some mild diverticulosis in the sigmoid colon. Retroflexion in the rectum showed some hypertrophied anal papillae. The colonoscope was completely withdrawn, and the patient allowed to recover. The patient tolerated the procedure well. There were no immediate postprocedure complications. IMPRESSION: 1. Mild gastritis, biopsied to rule out Helicobacter pylori. 2. Otherwise normal esophagogastroduodenoscopy. 3. Poor colon prep, likely just due to the patient's having taken only a fraction of the bowel prep prescribed. Prep quality is adequate to exclude mass lesions and gross mucosal abnormalities, but not adequate for screening purposes. 4. Normal mucosa throughout the entire colon, where visualized. No endoscopic explanation for the patient's pain symptoms. RECOMMENDATIONS: 1. Follow up pathology and the gastric biopsies. This can be followed up as an outpatient. 2. Daily PPI in the meantime. 3. Advance diet. 4. The patient will need repeat colonoscopy for screening purposes as an outpatient at some point in the next year, if she will actually go through with drinking the entire bowel prep. 5. No further gastrointestinal workup planned. GI will sign off. Please call back anytime with questions or concerns. Job ID: [id number]
[2019-06-06] MEDS: Aspirin 81 mg Enteric Coated Tablet PO SCH (09:56)
[2019-06-06] MEDS: Dicyclomine 10 MG CAP PO SCH ×3 (09:56→21:21)
[2019-06-06] MEDS: hydrALAZINE 25 MG TAB PO SCH ×3 (09:57→21:21)
[2019-06-06] MEDS: Metoprolol Tartrate 25 MG TAB PO SCH ×2 (09:57→21:20)
[2019-06-06] MEDS: Enoxaparin Sodium 40 MG/0.4 ML SYRINGE SC SCH (09:57)
[2019-06-06] MEDS: Flecainide 50 MG TAB PO SCH ×2 (09:57→21:21)
[2019-06-06] MEDS: Famotidine 20 MG TAB PO SCH ×2 (09:57→21:20)
[2019-06-06] MEDS: Escitalopram Oxalate 20 mg Tablet PO SCH (09:57)
[2019-06-06] MEDS ORDERED: Lidocaine 1% PF 5 ML VIAL ONE (11:36)
[2019-06-06] MEDS ORDERED: PROPOFOL 200 MG/20 ML VIAL ONE (11:36)
[2019-06-06] MEDS: Morphine 2 MG/ML SYRINGE SLOW IVP PRN ×2 (13:25→23:12)
[2019-06-06] MEDS: Losartan 25 MG TAB PO SCH (21:21)
--- NOTE | 2019-06-06 21:29 | PDOC.HOSPP ---
- Subjective Encounter Date: 06/06/19 Encounter Time: 19:00 Subjective: The patient still has abdominal pain. SHe says it is in RUQ for past three weeks , sharp, constant. No relief with any medication. She is having bowel movements. Denies vomiting. Does have history of atrial fibrillation. She is okay with going home but will wait until tomorrow. She asks, "do I have peritonitis?" Stated this is unlikely given that the pain is typically more severe from that - Objective Vital Signs & Weight: Vital Signs (12 hours) Temp Pulse Resp BP BP BP Pulse Ox 06/06/19 21:21 63 161/74 H 06/06/19 20:20 99.6 F 63 16 161/74 H 94 L 06/06/19 15:34 98.9 F 62 16 178/74 H 95 06/06/19 11:48 98.3 F 60 20 170/78 H 94 L 06/06/19 09:50 60 16 178/74 H 97 06/06/19 09:30 98.3 F 57 L 18 147/83 H 97 Weight Weight 229 lb I&O: 06/05/19 06/06/19 06/07/19 06:59 06:59 06:59 Intake Total 2275 1200 721 Output Total 400 Balance 2275 800 721 Result Diagrams: 06/06/19 06:18 06/06/19 06:18 Hospitalist ROS - Review of Systems Constitutional: denies: chills - Medication Medications: Active Medications Generic Name Dose Route Start Last Admin Trade Name Freq PRN Reason Stop Dose Admin Aspirin 81 mg 06/04/19 09:00 06/06/19 09:56 Ecotrin PO 81 mg DAILY GARRET Administration Dicyclomine HCl 10 mg 06/04/19 09:00 06/06/19 21:21 Bentyl PO 10 mg TID GARRET Administration Enoxaparin Sodium 40 mg 06/04/19 09:00 06/06/19 09:57 Lovenox SC Not Given 09 [facility] Escitalopram Oxalate 10 mg 06/04/19 09:00 06/06/19 09:57 Lexapro PO 10 mg QAM GARRET Administration Famotidine 20 mg 06/04/19 09:00 06/06/19 21:20 Pepcid PO 20 mg BID GARRET Administration Flecainide Acetate 50 mg 06/04/19 09:00 06/06/19 21:21 Tambocor PO 50 mg BID GARRET Administration Hydralazine HCl 75 mg 06/04/19 09:00 06/06/19 21:21 Apresoline PO 75 mg TID GARRET Administration Hydralazine HCl 10 mg 06/04/19 17:00 06/05/19 03:06 Apresoline SLOW IVP 10 mg Q6H PRN Administration SBP Greater Than 170 Ketorolac Tromethamine 15 mg 06/03/19 22:48 06/06/19 06:15 Toradol IVP 06/08/19 22:49 15 mg Q6H PRN Administration Pain Losartan Potassium 100 mg 06/04/19 21:00 06/06/19 21:21 Cozaar PO 100 mg QPM GARRET Administration Metoprolol Tartrate 12.5 mg 06/04/19 09:00 06/06/19 21:20 Lopressor PO 12.5 mg BID GARRET Administration Morphine Sulfate 2 mg 06/06/19 11:27 06/06/19 13:25 Morphine SLOW IVP 2 mg Q4H PRN Administration Pain Ondansetron HCl 4 mg 06/03/19 22:51 06/04/19 20:30 Zofran Odt SL 4 mg Q6H PRN Administration Nausea/Vomiting - Exam General Appearance: NAD, awake alert Eye: PERRL, anicteric sclera ENT: normocephalic atraumatic, no oropharyngeal lesions Neck: supple, symmetric, no JVD, no thyromegaly Heart: RRR, no murmur, no gallops, no rubs Respiratory: CTAB, no wheezes, no rales, no ronchi Gastrointestinal - other findings: RUQ tenderness, mild LLQ tendernes as well. No distension Extremities: no cyanosis, no clubbing, no edema Hosp A/P - Plan This is a 68 year old female who presented with 3 week history of RUQ pain, admitted for gallbladder workup RUQ pain - possibly gastritis - US showed distended GB, HIDA scan was normal. Patient is s/p colonoscopy which showed inadequate prep. EGD showed mild gastritis - continue protonix 40 mg daily. Biopsies taken to rule out H pylori - no ascites noted on CT abdomen AFib - continue fleicanide and metoprolol Hypertension - continue hydralazine, metoprolol and losartan CKD - creatinine 1.12, slightly increased, will monitor Macrocytic anemia - Hb 9, B12 and folate normal COde status: full code
[2019-06-07] MEDS: Morphine 2 MG/ML SYRINGE SLOW IVP PRN ×2 (03:29→11:32)
[2019-06-07] MEDS: Ketorolac Tromethamine 30 MG/ML VIAL IVP PRN (04:36)
[2019-06-07] MEDS: hydrALAZINE 20 MG/ML VIAL SLOW IVP PRN (04:38)
[2019-06-07 04:54] LABS: Lactic Acid 1.2 mmol/L (0.5-2.2)
[2019-06-07 04:57] LABS: ALT (SGPT) 17 U/L (8-55); AST (SGOT) 24 U/L (5-34); Albumin 2.9 g/dL (3.4-4.8); Alkaline Phosphatase 129 U/L (40-110); Anion Gap 11 mmol/L (10-20); BUN (Urea Nitrogen) 7 mg/dL (9.8-20.1); Bilirubin, Total 0.7 mg/dL (0.2-1.2); Calc. Creatinine Clearance 77 mL/min (70-130); Calcium 8.4 mg/dL (7.8-10.44); Carbon Dioxide 27 mmol/L (23-31); Chloride 105 mmol/L (98-107); Estimated GFR-MDRD 49; Glucose 119 mg/dL (80-115); Potassium 3.5 mmol/L (3.5-5.1); Protein, Total 5.9 g/dL (6.0-8.3); Sodium 139 mmol/L (136-145)
[2019-06-07 05:48] LABS: Band 7 % (5-11); Hemoglobin 10.9 g/dL (12.0-16.0); Lymphocytes 16 % (21-51); MDiff Complete? YES; Mean Corpuscular HGB CONC 32.8 g/dL (32.0-36.0); Mean Corpuscular Volume 97.6 fL (78.0-98.0); Mean Platelet Volume 6.8 fL (7.4-10.4); Monocytes 10 % (0-10); Neutrophil 67 % (42-75); Platelet Count 261 thou/uL (130-400); RBC Distribution Width 12.7 % (11.5-14.5); Red Blood Cell (RBC) Count 3.42 mill/uL (4.20-5.40); White Blood Cell (WBC) Count 10.1 thou/uL (4.8-10.8)
[2019-06-07 08:03] VITALS: BP 145/67
[2019-06-07] MEDS: Escitalopram Oxalate 20 mg Tablet PO SCH (08:35)
[2019-06-07] MEDS: Dicyclomine 10 MG CAP PO SCH ×2 (08:35→13:47)
[2019-06-07] MEDS: Flecainide 50 MG TAB PO SCH (08:35)
[2019-06-07] MEDS: hydrALAZINE 25 MG TAB PO SCH (08:35)
[2019-06-07] MEDS: Metoprolol Tartrate 25 MG TAB PO SCH (08:36)
[2019-06-07] MEDS: Famotidine 20 MG TAB PO SCH (08:36)
[2019-06-07] MEDS: Aspirin 81 mg Enteric Coated Tablet PO SCH (08:36)
[2019-06-07] MEDS: Enoxaparin Sodium 40 MG/0.4 ML SYRINGE SC SCH (08:39)
[2019-06-07 12:41] VITALS: TEMP 98.5
--- NOTE | 2019-06-08 12:44 | DIS ---
DATE OF ADMISSION: 06/06/2019 DATE OF DISCHARGE: 06/07/2019 DISCHARGE DIAGNOSIS: Abdominal pain secondary to gastritis, macrocytic anemia , elevated ALP SECONDARY DISCHARGE DIAGNOSES: CKD, atrial fibrillation, hypertension CONSULTATIONS: GI, Dr. Seferino Glynn; General Surgery, Dr. Casey Mata. PROCEDURES: Upper endoscopy and colonoscopy on 06/06. BRIEF HISTORY OF PRESENT ILLNESS: This is a 68-year-old female with a recent AAA repair, who came in due to abdominal pain. The patient had reported that her pain was a constant, sharp pain that was in her right upper quadrant, nonradiating. The patient said that it was worse with food intake. She was unable to identify any alleviating factors. The patient was seen by Dr. Esparza at one point, who did not think her pain was related to her recent surgery. The patient had a CT scan of her abdomen done on 06/01, which happened to show a distended gallbladder, and a HIDA scan was recommended. An abdominal ultrasound the same day also showed a distended gallbladder, and a HIDA scan was again recommended. The patient was admitted for further workup. Abdominal pain, possibly secondary to gastritis: The patient underwent a HIDA scan on 06/04/2019, which showed a gallbladder ejection fraction of 85% with no evidence of acute cholecystitis. Surgery was consulted, who recommended GI consultation. GI was consulted, and the patient underwent an EGD and colonoscopy on 06/06. EGD showed mild gastritis. Colonoscopy prep was inadequate. Therefore, the colonoscopy was unable to exclude mass lesions or gross mucosal abnormalities. The patient was started on daily Protonix. The following day, the patient still had some abdominal pain. Therefore, she was monitored in the hospital for one more day. On the day of discharge, 06/07/2019, the patient stated that the Protonix had helped and she was able to tolerate a diet. She had no nausea or vomiting. The patient was discharged with Protonix 40 mg daily. She was resumed on her home Pepcid. She was also prescribed dicyclomine 10 mg p.o. t.i.d. p.r.n. for pain. She was told that biopsies were taken of her stomach to rule out H pylori, and if anything is abnormal, she will be called. Atrial fibrillation: The patient will be continued on her flecainide and metoprolol. Hypertension: Continue hydralazine, metoprolol, and losartan. Macrocytic anemia: The patient had a hemoglobin of 9. B12 and folate levels were normal. The patient was advised to get a colonoscopy done as an outpatient. However, the patient states that she is not interested and will probably not get it done. CKD: The patient's creatinine was 1.11, which is her baseline. DISCHARGE PHYSICAL EXAMINATION: VITAL SIGNS: Temperature 98.5, blood pressure 145/67, heart rate 60, respiratory rate 16, and O2 saturation 94% on room air. GENERAL: Alert, awake, and oriented x3. CVS: Regular rate and rhythm with no murmurs, rubs, or gallops. RESPIRATORY: Clear to auscultation bilaterally. GI: The patient has mild right upper quadrant tenderness and mild left upper quadrant tenderness. No rebound, guarding, or rigidity. Extremities: no edema PERTINENT LABORATORY DATA: CBC on 06/07: Hemoglobin is 10.9, hematocrit 33.4. BMP on 06/07: Shows a creatinine of 1.11. Rest of BMP is unremarkable. Vitamin B12 on 06/06: 637. Folate on 06/06: 7. PERTINENT IMAGING: Chest x-ray on 06/03: Shows no acute disease. HIDA scan on 06/04: Normal with an ejection fraction of 85%. DISCHARGE CONDITION: Stable. ACTIVITY: As tolerated. DIET: The patient was advised to try a low-fat diet. DISCHARGE MEDICATIONS: New medications: 1. Bentyl 10 mg p.o. t.i.d. p.r.n. 2. Famotidine 20 mg p.o. b.i.d. 3. Protonix 40 mg p.o. daily. All other home medications were continued. Please refer to discharge medication work sheet. DISCHARGE INSTRUCTIONS: The patient should follow up with her PCP in a week and consider an outpatient colonoscopy. She should also consider getting iron testing done. The patient needs to have her biopsies of her stomach followed up to rule out H pylori. Job ID: [id number] [facility]
== END 2019-06-07 13:51 | disposition home or self-care (01) | DRG 392 ==
LOC: ERS 15:04 → 2SW 20:59 → OBSVTOIN 06-06 21:32
PROVIDERS: ADMIT Family Medicine; ATTEND Family Medicine
PROC: 0DB68ZX Excision of Stomach, Via Natural or Artificial Opening Endoscopic, Diagnostic (ICD-10-PCS; principal; 2019-06-06)
PROC: 0DB78ZX Excision of Stomach, Pylorus, Via Natural or Artificial Opening Endoscopic, Diagnostic (ICD-10-PCS; 2019-06-06)
PROC: 0DJD8ZZ Inspection of Lower Intestinal Tract, Via Natural or Artificial Opening Endoscopic (ICD-10-PCS; 2019-06-06)
DX: K29.70 Gastritis, unspecified, without bleeding (principal); N17.9 Acute kidney failure, unspecified; I71.4 Abdominal aortic aneurysm, without rupture; K74.60 Unspecified cirrhosis of liver; F17.200 Nicotine dependence, unspecified, uncomplicated; I34.1 Nonrheumatic mitral (valve) prolapse; I16.0 Hypertensive urgency; K75.81 Nonalcoholic steatohepatitis (NASH); F32.9 Major depressive disorder, single episode, unspecified; F41.9 Anxiety disorder, unspecified; J45.909 Unspecified asthma, uncomplicated; F17.210 Nicotine dependence, cigarettes, uncomplicated; E66.9 Obesity, unspecified; D53.9 Nutritional anemia, unspecified; I48.91 Unspecified atrial fibrillation; I12.9 Hypertensive chronic kidney disease with stage 1 through stage 4 chronic kidney disease, or unspecified chronic kidney disease; N18.9 Chronic kidney disease, unspecified; Z79.899 Other long term (current) drug therapy; Z79.82 Long term (current) use of aspirin; Z88.0 Allergy status to penicillin; Z91.041 Radiographic dye allergy status; Z68.37 Body mass index [BMI] 37.0-37.9, adult
CPT/HCPCS: 36415; 71045; 78227; 80053; 81003; 81015; 82274; 82550; 82607; 82746; 83605; 83690; 83880; 84484; 85025; 87086; 88305; 88312; 93005; 96361; 96374; 96375; A9537; C9113; J0360; J1650; J1885; J2001; J2270; J2405; J2704

== ENCOUNTER 2019-09-27 18:57 | Inpatient (IN) | payer MEDICARE ==
[~2019-09-27 18:57] MED LIST: Iopamidol-370 76% 500 ML 1 ML ONE
[2019-09-27] MEDS ORDERED: Vancomycin HCl 25 MG/ML Oral PO SCH (19:30)
[2019-09-27] MEDS ORDERED: Morphine 4 MG/ML VIAL ONE (19:35)
[2019-09-27] MEDS ORDERED: diphenhydrAMINE 50 MG/ML VIAL ONE (19:36)
[2019-09-27] MEDS ORDERED: Famotidine/PF 20 mg/2ml Vial ONE (19:36)
[2019-09-27] MEDS ORDERED: methylPREDNISolone Sod Succ/PF 125 MG/2 ML VIAL ONE (19:36)
--- NOTE | 2019-09-27 21:19 | CT ---
CT ABDOMEN AND PELVIS WITH IV CONTRAST: History: Epigastric abdominal pain. Comparison: 06-01-19 FINDINGS: Minimal dependent atelectasis is present at the right lung base. Lung bases are otherwise clear. Vascular calcifications are seen in the abdominal aorta and involving the iliac arteries. 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 The aneurysm sac is partially obscured due to shadowing from post-surgical changes of the lumbar spine. Aneurysm sac measures approximately 5.8 cm in greatest transverse dimension. Previous measurement of 5.1 cm was noted. There is enhancem ent seen within the aneurysmal sac compatible with endoleak. The exact type of endoleak is difficult to discern on this exam. A nodular peripheral contour of the liver is present, the liver is small in size suggesting cirrhosis . The gallbladder is distended measuring 7.2 cm in diameter. There is suggestion of trace amount of per icholecystic fluid. The spleen, pancreas, and bilateral adrenal glands demonstrate a normal CT appearance. The kidneys ap pear small in size bilaterally, assymetrically smaller in size on the right. Urinary bladder has a normal CT appearance. The uterus is again not visualized, likely related to hysterectomy. Loops of small bowel are normal in caliber. Fluid filled loops of small bowel as well as fluid filled colon is present. Scattered colonic diverticula are visualized. No enlarged lymph nodes are appreciated. No free fluid, fluid collection is identified. IMPRESSION: 1. 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 There has been enlargement of the aneurysm sac compared to the prior study in 2019. There is evidence of an endoleak . The exact type of endoleak is difficult to determine based on this exam. 2. Gallbladder distention with the gallbladder measuring 7.2 cm in transverse dimensions. There is sousa ggestion of trace pericholecystic fluid identified. Cholecystitis in the correct clinical scenario is a possibility. 3. Cirrhotic morphology of the liver. Portal vein as well as the splenic vein are patent. 4. Atrophy of the right kidney compared to the left. The left kidney is small in size with subcentime ter too small to characterize hypodense lesion noted. 5. Nonspecific fluid filled loops of small and large bowel. No bowel wall thickening is seen. 6. Colonic diverticulosis. 7. Hysterectomy. Code T POS: OFF
[2019-09-27] MEDS ORDERED: Senokot S 8.6-50 MG TAB PO PRN (22:39)
[2019-09-27] MEDS ORDERED: Ondansetron PF 4 MG/2 ML Vial IVP PRN (22:39)
[2019-09-27] MEDS ORDERED: Ondansetron ODT 4 MG TAB PO PRN (22:39)
[2019-09-27] MEDS ORDERED: Acetaminophen 650 MG Suppository PR PRN (22:39)
[2019-09-27] MEDS ORDERED: Acetaminophen 325 MG TAB PO PRN (22:39)
[2019-09-27] MEDS ORDERED: Guaifenesin DM 100-10/5 ML UDCUP PO PRN (22:39)
[2019-09-27 22:47] VITALS: BMI 31.5
[2019-09-27] MEDS: Vancomycin HCl 25 MG/ML Oral PO SCH (23:22)
--- NOTE | 2019-09-28 00:45 | HP ---
PRIMARY CARE PHYSICIAN: Kay Acosta, nurse practitioner at [facility] in [place]. CHIEF COMPLAINT: Diarrhea, nausea, and retching. HISTORY OF PRESENT ILLNESS: This is a 69-year-old white female with an extensive past medical history including atrial fibrillation; repaired brain aneurysm; nonalcoholic steatohepatitis; and hypertension, who had an abdominal aortic aneurysm repair earlier last year. After this, had some antibiotics and then after the antibiotic course, developed some diarrhea. She was eventually diagnosed with C difficile in the outpatient and treated with a 2-week course of Flagyl, which seemed to help the symptoms some but never went all the way away. After the Flagyl completed, the diarrhea came back severely, has been much worse over the last week. She has had 10 bowel movements per day, very smelly bowel movements, fishy smelling along with nausea and retching a lot. She is not able to drink much in the way of fluids. She stated ever since she had the metronidazole, her food has tasted metallic, so she has not had an appetite even when she was not retching. The patient eventually developed some left lower quadrant abdominal pain as well and she went to the [facility]. There, she was found to be volume depleted and hypotensive into the 80s systolic. She was given fluids and her blood pressure came up well. She started to feel better. She had 3 L of fluid there as well as some Zofran and then she was transferred here. Here, she may continue to have left lower quadrant pain as she has not passed a bowel movement for as yet nor she had any urine output. She states she has not urinated at all since yesterday. REVIEW OF SYSTEMS: CONSTITUTIONAL: No fevers. She has felt chilled. EYES: No double vision or blurred vision. ENT: No congestion, drainage, or sore throat. CARDIOVASCULAR: No chest pain. No palpitations or racing heart. PULMONARY: She has a little bit of a cough, but no wheezing or shortness of breath. GASTROINTESTINAL: See HPI. GENITOURINARY: No dysuria or hematuria, but she has not had any urine output since yesterday. MUSCULOSKELETAL: No muscle aches or joint pain. SKIN: No rashes or lesions noted. NEUROLOGIC: No numbness, tingling, or focal weakness. She has felt dizzy and lightheaded with standing and did have a possible syncopal episode yesterday when she was getting up to get around with her cane at home. PAST MEDICAL HISTORY: 1. Paroxysmal atrial fibrillation. 2. Nonalcoholic steatohepatitis. 3. Cirrhosis. 4. Psoriasis. 5. Hypertension. 6. Asthma. 7. Abdominal aortic aneurysm, status post repair. 8. MRSA bacteremia last year, treated with prolonged vancomycin IV. PAST SURGICAL HISTORY: 1. Abdominal aortic aneurysm repair. 2. Appendectomy. 3. Hysterectomy. 4. Tonsillectomy. 5. Gonzales rods in the back. SOCIAL HISTORY: The patient smokes half pack per day. No alcohol or illicit drug use. She states she is a full code and her daughter would be her medical decision maker. Her name is Chayito Corcoran. FAMILY HISTORY: Both parents lived until very old age. Mother with history of stroke and chronic atrial fibrillation. Father with history of coronary artery disease with stenting. ALLERGIES: Iodine contrast, Penicillin, Shellfish MEDICATIONS: Reviewed with patient and from chart, see list in computer for details. PHYSICAL EXAMINATION: VITAL SIGNS: Blood pressure 151/78, pulse 63, respirations 14, temperature 98.4 , and O2 saturation 100% on room air. GENERAL: This is a well-developed, well-nourished white female, in no acute distress. HEENT: Pupils are equal, round, and reactive to light. Oropharynx clear without lesions, erythema, or exudate. Mildly dry mucous membranes. NECK: Supple. No lymphadenopathy. No thyroid nodules or enlargement. No JVD. HEART: Regular rate and rhythm. No murmurs, rubs, or gallops. LUNGS: Clear to auscultation bilaterally. No wheezes, crackles, or rhonchi. ABDOMEN: Soft. Moderate tenderness to palpation of the left lower quadrant with some voluntary guarding. No rebound tenderness. No hepatosplenomegaly or other masses. EXTREMITIES: No clubbing, cyanosis, or edema. SKIN: No rashes or lesions noted. NEUROLOGIC: Intact strength and sensation in all extremities. No facial droop. PSYCHIATRIC: Alert and oriented x3. Normal mood and affect. LABORATORY DATA: CBC within normal limits. Complete metabolic panel is notable for a creatinine of 1.48, which is above her normal of about 1 to 1.2; potassium 3.2 ; carbon dioxide of 21; AST of 50; and alkaline phosphatase of 146, the rest is normal. Troponin was negative x1. Lactic acid was negative at 1.7. IMAGING DATA: CT scan of the abdomen and pelvis with contrast shows some postsurgical changes of the abdominal aortic aneurysm. There is a distended gallbladder with trace pericholecystic fluid identified. Cirrhotic morphology of the liver with portal vein as well as splenic vein patent. Atrophy of the right kidney. Left kidney is small in size. Nonspecific fluid-filled loops of small and large bowel. No bowel wall thickening seen and colonic diverticulosis. ASSESSMENT: 1. 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 The patient is doing much better after volume resuscitation. We will continue IV fluids, and we will add some potassium intermittently for her hypokalemia. We will give her vancomycin orally, and we will consult Gastroenterology for recommendations along the length of course. We will put patient on contact precaution and isolation. 2. Atrial fibrillation. We will resume the patient's flecainide. 3. Hypertension. Resume patient's losartan and metoprolol if her blood pressure remains stable. 4. Depression. We will resume patient's Lexapro. 5. Gastrointestinal prophylaxis. We will put patient on Pepcid twice a day. 6. Deep venous thrombosis prophylaxis. Put patient on Lovenox subcu. 7. Code status. The patient is a full code and her medical decision maker is her daughter, Chayito Corcoran. Job ID: [id number]
[2019-09-28] MEDS: Vancomycin HCl 25 MG/ML Oral PO SCH ×4 (05:49→23:11)
[2019-09-28 06:25] LABS: Anion Gap 15 mmol/L (10-20); BUN (Urea Nitrogen) 16 mg/dL (9.8-20.1); Calc. Creatinine Clearance 59 mL/min (70-130); Calcium 8.1 mg/dL (7.8-10.44); Carbon Dioxide 15 mmol/L (23-31); Chloride 112 mmol/L (98-107); Estimated GFR-MDRD 41; Glucose 130 mg/dL (83-110); Potassium 4.4 mmol/L (3.5-5.1); Sodium 138 mmol/L (136-145)
[2019-09-28 06:35] LABS: #Lymphocytes 0.8 thou/uL (1.20-3.40); #Neutrophils 2.8 thou/uL (1.40-6.50); %Basophils 0.5 % (0.0-1.0); %Eosinophils 0.8 % (0.0-10.0); %Lymphocytes 21.4 % (21.0-51.0); %Monocytes 1.2 % (0.0-10.0); %Neutrophils 76.1 % (42.0-75.0); Hemoglobin 12.2 g/dL (12.0-16.0); Mean Corpuscular Hemoglobin 31.7 pg (27.0-31.0); Platelet Count 105 thou/uL (130-400); Platelet Morphology Comment Appears Decreased; RBC Distribution Width 13.4 % (11.5-14.5); Red Blood Cell (RBC) Count 3.87 mill/uL (4.20-5.40); White Blood Cell (WBC) Count 3.7 thou/uL (4.8-10.8)
[2019-09-28] MEDS: Enoxaparin Sodium 40 MG/0.4 ML SYRINGE SC SCH (08:00)
[2019-09-28] MEDS: Escitalopram Oxalate 20 mg Tablet PO SCH (08:01)
[2019-09-28] MEDS: Famotidine 20 MG TAB PO SCH ×2 (08:01→20:42)
[2019-09-28] MEDS: Flecainide 50 MG TAB PO SCH ×2 (08:01→23:11)
[2019-09-28] MEDS: Saccharomyces boulardii 250 MG CAP PO SCH (08:01)
[2019-09-28] MEDS: Metoprolol Tartrate 25 MG TAB PO SCH ×2 (08:34→20:46)
--- NOTE | 2019-09-28 10:52 | PDOC.HOSPP ---
- Subjective Encounter Date: 09/28/19 Subjective: Feels ok. Not great yet. She has had two liquid stools this morning. - Objective Vital Signs & Weight: Vital Signs (12 hours) Temp Pulse Resp BP BP Pulse Ox 09/28/19 08:00 96 09/28/19 07:16 97.4 F L 59 L 18 105/54 L 96 09/28/19 07:09 96 09/28/19 05:36 97.4 F L 53 L 20 108/63 96 09/28/19 00:47 98 F 61 20 98/63 94 L 09/27/19 23:00 96 Weight Admit Weight 201 lb 8 oz Weight 201 lb 8 oz I&O: 09/27/19 09/28/19 09/29/19 06:59 06:59 06:59 Intake Total 240 Balance 240 Result Diagrams: 09/28/19 05:30 09/28/19 05:30 Hospitalist ROS - Medication Medications: Active Medications Generic Name Dose Route Start Last Admin Trade Name Freq PRN Reason Stop Dose Admin Enoxaparin Sodium 40 mg 09/28/19 09:00 09/28/19 08:00 Lovenox SC 40 mg 0900 GARRET Administration Escitalopram Oxalate 10 mg 09/28/19 09:00 09/28/19 08:01 Lexapro PO 10 mg QAM GARRET Administration Famotidine 20 mg 09/28/19 09:00 09/28/19 08:01 Pepcid PO 20 mg BID GARRET Administration Flecainide Acetate 50 mg 09/28/19 09:00 09/28/19 08:01 Tambocor PO 50 mg BID GARRET Administration Metoprolol Tartrate 12.5 mg 09/28/19 09:00 09/28/19 08:34 Lopressor PO 12.5 mg BID GARRET Administration Saccharomyces Boulardii 250 mg 09/28/19 09:00 09/28/19 08:01 Florastor PO 250 mg DAILY GARRET Administration Vancomycin HCl 125 mg 09/27/19 23:59 09/28/19 05:49 First Vancomycin PO 125 mg Q6HR GARRET Administration - Exam General Appearance: NAD, awake alert Heart: RRR, no murmur, no gallops, no rubs, normal peripheral pulses Respiratory: CTAB, no wheezes, no rales, no ronchi, normal chest expansion, no tachypnea, normal percussion Gastrointestinal: soft, non-tender, non-distended, normal bowel sounds, no palpable masses, no hepatomegaly, no splenomegaly, no bruit Musculoskeletal: normal tone, normal strength, no muscle wasting Hosp A/P (1) Clostridioides difficile infection Code(s): A49.8 - OTHER BACTERIAL INFECTIONS OF UNSPECIFIED SITE Status: Acute (2) A-fib Code(s): I48.91 - UNSPECIFIED ATRIAL FIBRILLATION Status: Acute (3) BRENNAN (acute kidney injury) Code(s): N17.9 - ACUTE KIDNEY FAILURE, UNSPECIFIED Status: Acute (4) HTN (hypertension) Code(s): I10 - ESSENTIAL (PRIMARY) HYPERTENSION Status: Chronic Qualifiers: (5) Non-alcoholic cirrhosis Status: Chronic (6) Tobacco abuse Code(s): Z72.0 - TOBACCO USE Status: Chronic (7) Acidosis Code(s): E87.2 - ACIDOSIS Status: Acute (8) CKD (chronic kidney disease), stage III Code(s): N18.3 - CHRONIC KIDNEY DISEASE, STAGE 3 (MODERATE) Status: Acute - Plan Continue PO Vancomycin. GI consult pending, but suspect a Vanc taper is in order. Resume IVF in light of acidosis. Recheck tomorrow. If resolved, can likely DC with po abx. Continue home meds for afib, htn. Renal function back to baseline.
[2019-09-28] MEDS: Sodium Chloride 0.9% 1,000 ML IV SCH ×3 (11:07→23:14)
[2019-09-28] MEDS ORDERED: Promethazine 25 MG TAB PO SCH (23:30)
--- NOTE | 2019-09-28 23:52 | CON ---
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 HISTORY OF PRESENT ILLNESS: Ms. Villalobos is a pleasant 69-year-old female. She was here about a week ago with a positive C. diff. She was treated with Flagyl. She states she never really got all the way better, got worse and began to have more diarrhea and actually to where she could not get up, so brought her to the hospital. She was dehydrated with elevated BUN and creatinine and having about 7 to 10 stools per day. Stools been ordered for C. diff toxin antigen, but has not been performed. It has been ordered for white blood cells and it has not been done either. She has been started on some oral vancomycin and feels better today. It is unclear why she got C. difficile the first time. She does have a history of compensated cirrhosis related to fatty liver. She was on antibiotics back in April through early June after aortic abdominal aneurysm repair, she had some bacteremia, but she was not on any antibiotics after that. Today, she has been able to drink some liquids and is actually feeling better. PAST MEDICAL HISTORY: Atrial fibrillation, steatohepatitis, cirrhosis, psoriasis, hypertension, asthma, abdominal aortic aneurysm repair, MRSA bacteremia, but treated with vancomycin IV. PAST SURGICAL HISTORY: Abdominal aortic repair, appendectomy, hysterectomy, tonsillectomy, Gonzales rods in the back. SOCIAL HISTORY: Patient smokes half pack per day. No alcohol or drugs. She is a full code status. Her is here at the bedside. FAMILY HISTORY: Both parents lived until very old age. Mother had stroke and atrial fibrillation. Father had coronary artery disease. ALLERGIES: IODINE, PENICILLIN, AND SHELLFISH. MEDICATIONS: She has been started on oral vancomycin, Lovenox, Lexapro, Pepcid, Tambocor, Robitussin, Lopressor, Zofran, Florastor, vancomycin 125 p.o. q.6 hours. PHYSICAL EXAMINATION: VITAL SIGNS: Temperature is 97.4. She has been afebrile since admission. Respirations 18, pulse 56, blood pressure 99/59 and 105/54. LUNGS: Clear. HEART: Regular rate and rhythm without murmurs. ABDOMEN: Soft and nontender. There is no rebound. There is no guarding. EXTREMITIES: No clubbing, cyanosis, or edema. Bowel sounds are positive. LABORATORY DATA: White count 3.7, was 9.3 yesterday; hemoglobin is 12.2; platelets 105. INR 1.1 back in May. Sodium 138, potassium 4.4, BUN and creatinine are 16 and 1.27. It was 15 and 1.48 yesterday. Liver function tests notable for AST 50, ALT is 30, alkaline phosphatase of 146, lipase is 42. Stool for C. difficile was positive, 09/07/2019. 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 RECOMMENDATIONS: 1. Get stool for C. difficile and fecal white blood cells. 2. Start IV fluids at 100 an hour. 3. Monitor renal function. We will follow along with you. If there is no improvement, she may need IV Flagyl on top of the vanc, but she seems to be having some improvement now. Job ID: [id number]
[2019-09-29] MEDS: Vancomycin HCl 25 MG/ML Oral PO SCH ×2 (05:59→12:35)
[2019-09-29 06:32] LABS: Anion Gap 10 mmol/L (10-20); BUN (Urea Nitrogen) 18 mg/dL (9.8-20.1); Calc. Creatinine Clearance 63 mL/min (70-130); Calcium 8.1 mg/dL (7.8-10.44); Carbon Dioxide 23 mmol/L (23-31); Chloride 115 mmol/L (98-107); Estimated GFR-MDRD 45; Glucose 103 mg/dL (83-110); Potassium 3.7 mmol/L (3.5-5.1); Sodium 144 mmol/L (136-145)
[2019-09-29] MEDS: Sodium Chloride 0.9% 1,000 ML IV SCH ×2 (08:17→09:24)
[2019-09-29] MEDS: Saccharomyces boulardii 250 MG CAP PO SCH (09:25)
[2019-09-29] MEDS: Enoxaparin Sodium 40 MG/0.4 ML SYRINGE SC SCH (09:25)
[2019-09-29] MEDS: Flecainide 50 MG TAB PO SCH (09:25)
[2019-09-29] MEDS: Famotidine 20 MG TAB PO SCH (09:26)
[2019-09-29] MEDS: Escitalopram Oxalate 20 mg Tablet PO SCH (09:26)
[2019-09-29] MEDS: Metoprolol Tartrate 25 MG TAB PO SCH (09:26)
[2019-09-29 11:39] VITALS: BP 112/71; TEMP 97.8
--- NOTE | 2019-10-01 04:18 | DIS ---
DATE OF ADMISSION: 09/27/2019 DATE OF DISCHARGE: 09/29/2019 DISCHARGE DIAGNOSES: 1. Clostridium difficile colitis. 2. Mild acute kidney injury. 3. Chronic kidney disease, stage 3. 4. Metabolic acidosis. 5. History of nonalcoholic cirrhosis. 6. History of atrial fibrillation. 7. History of hypertension. 8. History of depression. 9. Tobacco abuse. HISTORY OF PRESENT ILLNESS: This patient is a 69-year-old female, who had previously been diagnosed with C. difficile colitis. It was unclear as to how she actually initially developed that. However, she was treated with oral regimen of p.o. Flagyl. She subsequently had some improvement, but then recurrence of significant bouts of diarrhea. She presented back to the hospital with these symptoms. She was noted to have mild acute kidney injury and some metabolic acidosis and therefore was admitted to the hospital for further treatments. HOSPITAL COURSE: The patient was started on IV fluids and oral vancomycin. She had a consult with GI. She subsequently had a fairly prompt improvement with her diarrhea and the number of episodes reduced dramatically. She felt well, was able to eat and ambulate. Her metabolic acidosis did ultimately resolve with IV fluids and her renal function was back at her baseline. With that, the patient was felt to be stable for . PHYSICAL EXAMINATION: VITAL SIGNS: On the day of discharge, temperature was 97.8, pulse 56, respirations room air, BP 112/71. GENERAL APPEARANCE: No distress. Awake, alert. HEART: Regular rate and rhythm. LUNGS: Clear bilaterally. ABDOMEN: Benign. EXTREMITIES: No edema. DISPOSITION: The patient is discharged home. DISCHARGE INSTRUCTIONS: DIET: She is to have a regular diet. ACTIVITY: As tolerated. DISCHARGE MEDICATIONS: She will be on Florastor 250 daily. Vancomycin 125 mg q.i.d. for 14 days and then t.i.d. for 7 days, b.i.d. for 7 days, daily for 7 days and every other day for 7 days. She will resume her other home medications includin. Metoprolol 12.5 b.i.d. 2. Losartan 100 at bedtime. 3. Lexapro 0.5 q.a.m. 4. Flecainide 50 mg b.i.d. 5. Famotidine 20 mg b.i.d. 6. Benadryl p.r.n. 7. Hydralazine 75 mg b.i.d. Followup: She is to follow up with Kay Acosta and she can return to the hospital at any time should she have the need to do so. TIME SPENT: Total time in discharge activities was 36 minutes. Job ID: [id number]
== END 2019-09-29 13:33 | disposition home or self-care (01) | DRG 372 ==
LOC: ERS 18:57 → T4-B 20:01
PROVIDERS: ADMIT Emergency Medicine; ATTEND Emergency Medicine
DX: A04.71 Enterocolitis due to Clostridium difficile, recurrent (principal); N17.9 Acute kidney failure, unspecified; E87.2 Acidosis; I13.0 Hypertensive heart and chronic kidney disease with heart failure and stage 1 through stage 4 chronic kidney disease, or unspecified chronic kidney disease; E86.9 Volume depletion, unspecified; K75.81 Nonalcoholic steatohepatitis (NASH); E87.6 Hypokalemia; K74.60 Unspecified cirrhosis of liver; L40.9 Psoriasis, unspecified; J45.909 Unspecified asthma, uncomplicated; I48.0 Paroxysmal atrial fibrillation; F32.9 Major depressive disorder, single episode, unspecified; N18.3 Chronic kidney disease, stage 3 (moderate); F17.210 Nicotine dependence, cigarettes, uncomplicated; Z79.01 Long term (current) use of anticoagulants; Z90.49 Acquired absence of other specified parts of digestive tract; Z90.710 Acquired absence of both cervix and uterus; Z91.041 Radiographic dye allergy status; Z88.0 Allergy status to penicillin; Z91.013 Allergy to seafood; Z86.14 Personal history of Methicillin resistant Staphylococcus aureus infection
CPT/HCPCS: 36415; 74177; 80048; 85025; 96361; 96374; 96375; J1200; J1650; J2270; J2405; J2930; Q0169; Q9967; S0028

== ENCOUNTER 2020-05-23 08:39 | Outpatient (CLI) | payer MEDICARE ==
--- NOTE | 2020-05-23 11:37 | CT ---
CT ABDOMEN AND PELVIS WITH IV CONTRAST: Date: 05/23/2020 INDICATION: 69-year-old female with abdominal pain and melena, and history of prior IV contrast allergy. TECHNIQUE: The patient was reportedly premedicated with a 13 hour prep for iodine allergy. Patient was undergoin g monitoring following the examination for reaction to the IV contrast administered after the steroid prep. The patient reportedly was having a mild reaction after the examination and was taken to nurse holding to monitor for 1 hour following the procedure. COMPARISON: Prior CT of the abdomen and pelvis dated 09/27/2019. FINDINGS: There are small bilateral pleural effusions which are new from the prior examination with mild right basilar atelectasis. There is worsening cirrhosis of the liver. There is mild to moderate gallbladder distention. The sple en measures 10.9 cm. The pancreas and adrenal glands are normal appearing. The kidneys are atrophic a ppearing. The aortobiiliac endograft stent is unchanged in position. There is persistent evidence of an endolea k within the excluded aneurysmal sac. The excluded abdominal aortic aneurysmal sac is larger, now erasmo suring 5.0 x 5.9 cm, where at a previous similar level the excluded aneurysmal sac measured 5.7 x 4.8 cm. There is worsening prominent ascites. Portal vein appears to opacity. The hepatic veins appear to be patent. No enlarged lymph nodes are evident. The small and large bowel appear within normal limits. Bladder is largely decompressed. There is postsurgical change consistent with interbody fusion of L3 through S1. There is scattered de generative and osteoarthritic change. There is mild to moderate anasarca. IMPRESSION: 1. Worsening cirrhosis of the liver with worsening ascites, anasarca, and bilateral pleural effusion s. 2. Enlarging excluded aneurysmal sac likely related to a endoleak surrounding the patient's aortobii liac endograft. The aneurysmal sac now measures 5.9 x 5.0 cm, where previously the excluded aneurysma l sac measured 5.7 x 4.8 cm. POS: [facility]
== END 2020-05-23 08:40 | disposition home or self-care (01) ==
LOC: CT 08:39
PROVIDERS: ATTEND Physician Assistant Medical
DX: Z53.9 Procedure and treatment not carried out, unspecified reason (principal)
CPT/HCPCS: 74177; 82565; 83630; 87324; 87449

== ENCOUNTER 2020-05-25 09:36 | Day surgery (SDC) | payer MEDICARE ==
[2020-05-24 09:46] VITALS: BMI 30.7
[2020-05-25 09:56] LABS: #Basophils 0.1 thou/uL (0.0-0.2); #Eosinphils 0.2 thou/uL (0.0-0.7); #Lymphocytes 2.3 thou/uL (1.20-3.40); #Monocytes 1.2 thou/uL (0.11-0.59); #Neutrophils 5.3 thou/uL (1.40-6.50); %Basophils 0.8 % (0.0-1.0); %Eosinophils 1.7 % (0.0-10.0); %Lymphocytes 25.7 % (21.0-51.0); %Monocytes 13.6 % (0.0-10.0); %Neutrophils 58.2 % (42.0-75.0); Hemoglobin 12.6 g/dL (12.0-16.0); Mean Corpuscular HGB CONC 31.6 g/dL (32.0-36.0); Mean Corpuscular Hemoglobin 34.9 pg (27.0-31.0); Mean Platelet Volume 6.6 fL (7.4-10.4); Platelet Count 158 thou/uL (130-400); RBC Distribution Width 13.2 % (11.5-14.5); Red Blood Cell (RBC) Count 3.61 mill/uL (4.20-5.40); White Blood Cell (WBC) Count 9.1 thou/uL (4.8-10.8)
[2020-05-25 10:00] LABS: INR-International Normal Ratio 1.2; Prothrombin Time 15.3 sec (12.0-14.7)
[2020-05-25] MEDS ORDERED: FLU VACC QS2020-21(65YR UP)/PF 240 MCG/0.7 ML SYRINGE IM ONE (10:00)
[2020-05-25 10:26] LABS: ALT (SGPT) 10 U/L (8-55); AST (SGOT) 28 U/L (5-34); Albumin 3.1 g/dL (3.4-4.8); Alkaline Phosphatase 114 U/L (40-110); Anion Gap 11 mmol/L (10-20); BUN (Urea Nitrogen) 17 mg/dL (9.8-20.1); Bilirubin, Total 0.8 mg/dL (0.2-1.2); Calc. Creatinine Clearance 51 mL/min (70-130); Calcium 8.9 mg/dL (7.8-10.44); Carbon Dioxide 27 mmol/L (23-31); Chloride 110 mmol/L (98-107); Estimated GFR-MDRD 39; Globulin 3.1 g/dL (2.4-3.5); Glucose 86 mg/dL (83-110); Potassium 3.1 mmol/L (3.5-5.1); Protein, Total 6.2 g/dL (6.0-8.3); Sodium 145 mmol/L (136-145)
[2020-05-25] MEDS ORDERED: Lidocaine 1% PF 5 ML VIAL ONE (11:14)
[2020-05-25] MEDS ORDERED: Sodium Bicarbonate 2.5 MEQ/5 ML VIAL ONE (11:14)
--- NOTE | 2020-05-25 12:14 | ULT ---
US Paracentesis with Imaging History: Ascites Comparison: CT examination 2 days prior Findings: Patient was brought to the ultrasound suite. All questions were answered. Informed consent was obtained. Timeout performed. The patient's right lower quadrant was prepped and draped in normal sterile fashion. After adequate l ocal anesthesia with lidocaine the right lower quadrant peritoneal space was accessed. 5 L of fluid was removed. Patient tolerated the procedure well without complication. Impression: Technically successful ultrasound-guided paracentesis.
[2020-05-25 13:54] LABS: RBC Count-Automated (BF) 22324 /cu.mm; WBC/Nucleated-Auto (BF) 866 uL
[2020-05-25 14:08] LABS: BF Color Pink; Body Fluid Source Paracentesis Fluid; Clarity Cloudy/Turbid (Clear); Tube # EDTA
[2020-05-25 14:30] VITALS: BP 148/70; TEMP 98.6
[2020-05-25 14:41] LABS: BF Segmented Neutrophils 17 %; Cell Count Non Hematic 27 %; Lymphocytes 56 %
== END 2020-05-25 12:25 | disposition home or self-care (01) ==
LOC: ULT 09:36
PROVIDERS: ATTEND Physician Assistant Medical
PROC: 0W9G3ZZ Drainage of Peritoneal Cavity, Percutaneous Approach (ICD-10-PCS; principal; 2020-05-25)
DX: K74.60 Unspecified cirrhosis of liver (principal); R18.8 Other ascites; I12.9 Hypertensive chronic kidney disease with stage 1 through stage 4 chronic kidney disease, or unspecified chronic kidney disease; N18.9 Chronic kidney disease, unspecified; F41.9 Anxiety disorder, unspecified; F32.9 Major depressive disorder, single episode, unspecified; I48.91 Unspecified atrial fibrillation; D64.9 Anemia, unspecified; F17.210 Nicotine dependence, cigarettes, uncomplicated; K21.9 Gastro-esophageal reflux disease without esophagitis; J45.909 Unspecified asthma, uncomplicated; Z88.0 Allergy status to penicillin; Z91.013 Allergy to seafood; Z91.041 Radiographic dye allergy status; Z79.899 Other long term (current) drug therapy
CPT/HCPCS: 36415; 49083; 80053; 82042; 84155; 85025; 85060; 85610; 87070; 87205; 88112; 88305; 89051